=== PATIENT | male | born 1945 | race Caucasian/White ===

== ENCOUNTER 2021-03-25 12:59 | Outpatient (REF) | payer MEDICARE, OTHER, SELFPAY ==
--- NOTE | ~2021-03-25 | US_ITS ---
EXAMINATION: NONINVASIVE ASSESSMENT OF THE ARTERIES OF BOTH LOWER EXTREMITIES WITH PVR EXAM AND BILATERAL LOWER EXTREMITY DUPLEX CLINICAL INFORMATION: peripheral vascular disease TECHNIQUE: Ankle pulse volume recordings, ankle pressure measurements and ankle brachial indices were obtained of the lower extremity arterial system bilaterally in addition to duplex Doppler techniques with wave form analysis and measurement of velocities in the common femoral, profunda femoral, superficial femoral, popliteal and tibial arteries. The study was performed only at rest. COMPARISON: Previous exam February 2020 FINDINGS: a) AT REST: RIGHT LE. The right ankle-brachial index is: 0.94 2. Right ankle pressure: normal. 3. Right ankle PVR waveform: Dampened 4. Right direct duplex Doppler findings: There is atherosclerotic disease with vessel wall calcification. * Common femoral artery: 99 cm/s, Diastolic flow reversal: Yes * Superficial femoral artery (proximal, mid, distal): 73, 65 and 54 cm/s, Diastolic flow reversal: No. Biphasic. * Popliteal artery: 40 cm/s, Diastolic flow reversal: No. Biphasic. * Posterior tibial artery: 48 cm/s, Diastolic flow reversal: No. Monophasic. LEFT LE. The left ankle-brachial index is: Not able to detect due to elevated pressure greater than 200 2. Left ankle pressure: Elevated 3. Left ankle PVR waveform: Dampened 4. Left direct duplex Doppler findings: There is atherosclerotic disease with vessel wall calcification. * Common femoral artery: 95 cm/s, Diastolic flow reversal: No. Biphasic. * Superficial femoral artery (proximal, mid, distal): 83, 82 and 71 cm/s, Diastolic flow reversal: No. Biphasic. * Popliteal artery: 45 cm/s, Diastolic flow reversal: Yes * Posterior tibial artery: 54 cm/s, Diastolic flow reversal: No. Monophasic. RAY Reference: * >0.97-1.25 = normal - no significant arterial disease * 0.75-0.96 = mild peripheral arterial disease * 0.5-0.74 = moderate peripheral arterial disease * <0.50 = severe peripheral arterial disease US/US arterial duplex LE BI IMPRESSION: Right: The right RAY is 0.9 which is normal. Again, this may be artifactually elevated due to vessel wall calcification. There is no evidence of inflow disease. There is abnormal monophasic flow in the posterior tibial artery suggestive of trifurcation disease. Left: Ankle brachial indices could not be detected due to elevated pressure. There is no evidence of inflow disease. There is abnormal monophasic flow in the posterior tibial artery suggestive of trifurcation disease.
== END 2021-03-25 13:00 | disposition home or self-care (01) ==
LOC: HO.US 12:59
PROVIDERS: PCP Internal Medicine; Visit Provider Surgery Vascular Surgery
DX: I73.9 Peripheral vascular disease, unspecified (principal)
CPT/HCPCS: 93923; 93925

== ENCOUNTER → 2021-03-28 09:35 | Outpatient (BNVA) | payer MEDICARE, OTHER, SELFPAY | PROVIDERS: PCP Family Medicine; Visit Provider Surgery Vascular Surgery | DX: I73.9 Peripheral vascular disease, unspecified (principal) | CPT/HCPCS: 99212 ==

== ENCOUNTER → 2021-07-18 15:41 | Outpatient (BNVA) | payer MEDICARE, OTHER, SELFPAY | PROVIDERS: PCP Internal Medicine; Visit Provider Surgery Vascular Surgery | DX: I73.9 Peripheral vascular disease, unspecified (principal) | CPT/HCPCS: 99212 ==

== ENCOUNTER → 2021-08-01 14:15 | Outpatient (BNVA) | payer MEDICARE, OTHER, SELFPAY | PROVIDERS: PCP Internal Medicine; Visit Provider Surgery Vascular Surgery | DX: I73.9 Peripheral vascular disease, unspecified (principal); Z89.421 Acquired absence of other right toe(s) | CPT/HCPCS: 99212 ==

== ENCOUNTER 2022-01-02 09:52 | Outpatient (REF) | payer MEDICARE, OTHER, SELFPAY ==
--- NOTE | ~2022-01-02 | US_ITS ---
EXAMINATION: NONINVASIVE ASSESSMENT OF THE ARTERIES OF BOTH LOWER EXTREMITIES WITH PVR EXAM AND BILATERAL LOWER EXTREMITY DUPLEX CLINICAL INFORMATION: peripheral vascular disease TECHNIQUE: Ankle pulse volume recordings, ankle pressure measurements and ankle brachial indices were obtained of the lower extremity arterial system bilaterally in addition to duplex Doppler techniques with wave form analysis and measurement of velocities in the common femoral, profunda femoral, superficial femoral, popliteal and tibial arteries. The study was performed only at rest. COMPARISON: Comparison is made to the previous study dated 03/25/2021. FINDINGS: a) AT REST: RIGHT LE. The right ankle-brachial index is: 0.98. Previously, 0.94 2. Right ankle pressure: normal. 3. Right ankle PVR waveform: Dampened 4. Right direct duplex Doppler findings: There is atherosclerotic disease with vessel wall calcification. * Common femoral artery: 77 cm/s. Previously, 99 cm/s, Diastolic flow reversal: Yes * Superficial femoral artery (proximal, mid, distal): 67, 55, 56 cm/s. Previously, 73, 65 and 54 cm/s, Diastolic flow reversal: No. Biphasic. * Popliteal artery: 45 cm/s. Previously, 40 cm/s, Diastolic flow reversal: No. Biphasic. * Posterior tibial artery: The mid posterior tibial artery appears to be occluded by duplex ultrasound. Previously, 48 cm/s, Diastolic flow reversal: No. Monophasic. * The right peroneal artery appears to be occluded. LEFT LE. The left ankle-brachial index is: Not able to detect due to elevated pressure greater than 200. This was seen previously. 2. Left ankle pressure: Elevated 3. Left ankle PVR waveform: Dampened 4. Left direct duplex Doppler findings: There is atherosclerotic disease with vessel wall calcification. * Common femoral artery: 104 cm/s and triphasic. Previously,95 cm/s, Diastolic flow reversal: No. Biphasic. * Superficial femoral artery (proximal, mid, distal): 59, 72, 37 cm/s. Previously, 83, 82 and 71 cm/s, Diastolic flow reversal: No. Biphasic. * Popliteal artery: 49 cm/s. Previously, 45 cm/s, Diastolic flow reversal: Yes * Posterior tibial artery: 47 cm/s and monophasic. The midportion appears to be occluded by duplex ultrasound. Previously, 54 cm/s, Diastolic flow reversal: No. Monophasic. RAY Reference: * >0.97-1.25 = normal - no significant arterial disease * 0.75-0.96 = mild peripheral arterial disease * 0.5-0.74 = moderate peripheral arterial disease * <0.50 = severe peripheral arterial disease US/US arterial duplex LE BI IMPRESSION: RIGHT: The right RAY is 0.9 which is normal. Again, this may be artifactually elevated due to vessel wall calcification. There is no evidence of inflow disease. The posterior tibial artery and peroneal artery, respectively, may have occlusive disease. LEFT: Ankle brachial indices could not be detected due to elevated pressure. There is no evidence of inflow disease. There is abnormal monophasic flow in the posterior tibial artery suggestive of trifurcation disease. There appears to be an occlusion in the mid posterior tibial artery.
== END 2022-01-02 09:53 | disposition home or self-care (01) ==
LOC: HO.US 09:52
PROVIDERS: Visit Provider Surgery Vascular Surgery
DX: I73.9 Peripheral vascular disease, unspecified (principal)
CPT/HCPCS: 93923; 93925

== ENCOUNTER → 2022-04-29 09:28 | Outpatient (BNVA) | payer MEDICARE, OTHER, SELFPAY | PROVIDERS: PCP Internal Medicine; Visit Provider Surgery Vascular Surgery | DX: I73.9 Peripheral vascular disease, unspecified (principal) | CPT/HCPCS: 99212 ==

== ENCOUNTER 2023-04-06 12:54 | Outpatient (REF) | payer MEDICARE, OTHER, SELFPAY ==
--- NOTE | ~2023-04-06 | US_ITS ---
EXAMINATION: NONINVASIVE ASSESSMENT OF THE ARTERIES OF BOTH LOWER EXTREMITIES WITH PVR EXAM AND BILATERAL LOWER EXTREMITY DUPLEX Larisa Greene MD CLINICAL INFORMATION: Peripheral vascular disease TECHNIQUE: Ankle pulse volume recordings, ankle pressure measurements and ankle brachial indices were obtained of the lower extremity arterial system bilaterally in addition to duplex Doppler techniques with wave form analysis and measurement of velocities in the common femoral, profunda femoral, superficial femoral, popliteal and tibial arteries. The study was performed only at rest. COMPARISON: Arterial exam on 01/02/2022 FINDINGS: a) AT REST: RIGHT LE. The right ankle-brachial index is: 0.98 * >0.97-1.25 = normal - no significant arterial disease * 0.75-0.96 = mild peripheral arterial disease * 0.5-0.74 = moderate peripheral arterial disease * <0.50 = severe peripheral arterial disease 2. Right ankle pressure: normal. 3. Right ankle PVR waveform: abnormal. 4. Right direct duplex Doppler findings: Common femoral artery: 72 cm/s, Multiphasic Profunda femoris artery: 58 cm/s, Multiphasic Superficial femoral artery (proximal): 65 cm/s, Multiphasic Superficial femoral artery (mid): 59 cm/s, Multiphasic Superficial femoral artery (distal): 59 cm/s, Multiphasic Proximal Popliteal artery: 39 cm/s, Multiphasic Mid posterior tibial artery: 26 cm/s, Monophasic (occluded proximally) Right popliteal fossa cysts measuring 1.5cm and 1.7cm. LEFT LE. The left ankle-brachial index is: 1.68 * >0.97-1.25 = normal - no significant arterial disease * 0.75-0.96 = mild peripheral arterial disease * 0.5-0.74 = moderate peripheral arterial disease * <0.50 = severe peripheral arterial disease 2. Left ankle pressure: abnormal. 3. Left ankle PVR waveform: abnormal. 4. Left direct duplex Doppler findings: Common femoral artery: 84 cm/s, Multiphasic Profunda femoris artery: 102 cm/s, Multiphasic Superficial femoral artery (proximal): 64 cm/s, Multiphasic Superficial femoral artery (mid): 58 cm/s, Multiphasic Superficial femoral artery (distal): 43 cm/s, Multiphasic Proximal Popliteal artery: 46 cm/s, Monophasic Mid posterior tibial artery: 74 cm/s, Monophasic (occluded proximally) US/US RAY complete IMPRESSION: RIGHT LEG: No hemodynamically significant stenoses in the proximal right lower extremity. 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 LEFT LEG: Moderate peripheral arterial disease in the left lower extremity. 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
--- NOTE | ~2023-04-06 | US_ITS ---
EXAMINATION: NONINVASIVE ASSESSMENT OF THE ARTERIES OF BOTH LOWER EXTREMITIES WITH PVR EXAM AND BILATERAL LOWER EXTREMITY DUPLEX Larisa Greene MD CLINICAL INFORMATION: Peripheral vascular disease TECHNIQUE: Ankle pulse volume recordings, ankle pressure measurements and ankle brachial indices were obtained of the lower extremity arterial system bilaterally in addition to duplex Doppler techniques with wave form analysis and measurement of velocities in the common femoral, profunda femoral, superficial femoral, popliteal and tibial arteries. The study was performed only at rest. COMPARISON: Arterial exam on 01/02/2022 FINDINGS: a) AT REST: RIGHT LE. The right ankle-brachial index is: 0.98 * >0.97-1.25 = normal - no significant arterial disease * 0.75-0.96 = mild peripheral arterial disease * 0.5-0.74 = moderate peripheral arterial disease * <0.50 = severe peripheral arterial disease 2. Right ankle pressure: normal. 3. Right ankle PVR waveform: abnormal. 4. Right direct duplex Doppler findings: Common femoral artery: 72 cm/s, Multiphasic Profunda femoris artery: 58 cm/s, Multiphasic Superficial femoral artery (proximal): 65 cm/s, Multiphasic Superficial femoral artery (mid): 59 cm/s, Multiphasic Superficial femoral artery (distal): 59 cm/s, Multiphasic Proximal Popliteal artery: 39 cm/s, Multiphasic Mid posterior tibial artery: 26 cm/s, Monophasic (occluded proximally) Right popliteal fossa cysts measuring 1.5cm and 1.7cm. LEFT LE. The left ankle-brachial index is: 1.68 * >0.97-1.25 = normal - no significant arterial disease * 0.75-0.96 = mild peripheral arterial disease * 0.5-0.74 = moderate peripheral arterial disease * <0.50 = severe peripheral arterial disease 2. Left ankle pressure: abnormal. 3. Left ankle PVR waveform: abnormal. 4. Left direct duplex Doppler findings: Common femoral artery: 84 cm/s, Multiphasic Profunda femoris artery: 102 cm/s, Multiphasic Superficial femoral artery (proximal): 64 cm/s, Multiphasic Superficial femoral artery (mid): 58 cm/s, Multiphasic Superficial femoral artery (distal): 43 cm/s, Multiphasic Proximal Popliteal artery: 46 cm/s, Monophasic Mid posterior tibial artery: 74 cm/s, Monophasic (occluded proximally) US/US arterial duplex LE BI IMPRESSION: RIGHT LEG: No hemodynamically significant stenoses in the proximal right lower extremity. 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 LEFT LEG: Moderate peripheral arterial disease in the left lower extremity. 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
== END 2023-04-06 12:55 | disposition home or self-care (01) ==
LOC: HO.US 12:54
PROVIDERS: PCP Internal Medicine; Visit Provider Surgery Vascular Surgery
DX: I70.213 Atherosclerosis of native arteries of extremities with intermittent claudication, bilateral legs (principal)
CPT/HCPCS: 93923; 93925

== ENCOUNTER 2023-04-28 09:51 | Outpatient (AMB) | payer MEDICARE, OTHER, SELFPAY ==
[2023-04-28 09:54] VITALS: BMI 31.0
--- NOTE | 2023-04-28 09:54 | MHC.OFFVIS ---
Intake Vital Signs 04/28/23 09:54 Height 5 ft 9 in Weight 210 lb BMI 31.0 Intake Visit Reasons: Follow up 04/07 US Intake Note: Pt presents today for a f/u annual bilateral LE arterial US done 04/06/23. Pt reports his reocurring blister went away and his leg no longer feels heavy or like it is dragging. Adjuster Required: No Accompanied by: Spouse Allergies No Known Allergies [No Known Allergies*] Allergy (Verified 04/28/23 09:58) HPI Follow up 04/07 HPI Details Very pleasant 77-year-old gentleman presents for follow-up regarding peripheral vascular disease. 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 It has gone on to heal. He is doing extremely well. He is using an AFO secondary to a stroke and has no other issues. He is ambulating fairly well. He now presents for routine follow-up with noninvasive arterial testing. [facility] Medical History Diabetes Hypercholesteremia PVD (peripheral vascular disease) Surgical History History of open heart surgery Hx of brain surgery S/P angiogram of extremity Toe amputee Social History Patient Tobacco Use Status: Never used Tobacco Review of Systems Const All systems reviewed & are unremarkable except as noted in HPI and below Reports no additional complaints ENT Reports Normal hearing present Card Denies chest pain, Denies chest pain at rest, Denies chest pain with activity and Denies pedal edema Resp Denies cough GI Denies abdominal pain Musc Denies abnormal gait, Denies muscle cramps and Denies radiating pain into limb Skin/Breast Denies skin ulcer and Denies wounds Neuro Reports Normal hearing present and Denies abnormal gait Psych Reports no additional complaints Physical Exam Vital Signs: BMI result Body Mass Index 31.0 Const General: cooperative, healthy appearing and comfortable Orientation/consciousness: oriented to person, oriented to place and oriented to time HEENT Head: Yes normal to inspection Neck Neck: Yes normal visual inspection Carotids: no bruits Chest Chest palpation & inspection: normal inspection of the chest Resp Effort & Inspection: normal respiratory effort and able to speak in complete sentences Auscultation: clear to auscultation bilaterally, no crackles, no rales, no rhonchi and no wheezes Cardio Other: Bilateral palpable dorsalis pedis pulses Rate: regular rate Rhythm: regular rhythm Heart sounds: S1 normal heart sound present and S2 normal heart sound present Bruits: no carotid bruits Peripheral pulses: Peripheral pulses 2+ throughout GI Inspection: Yes normal to inspection Skin Wounds: no wounds Hair: normal Neuro General: oriented to person, oriented to place and oriented to time Cranial nerves: Yes CN's II-XII intact bilaterally and Yes Normal hearing present Cognition (Neuro): normal cognition Motor exam (neuro): 5/5 motor strength present throughout Extrem Other: venous exam: No significant superficial varicosities or spider telangiectasias, minimal edema General: No clubbing, No cyanosis and No edema Psych Appearance: grossly normal Mental Status: mental status grossly normal Speech and movement: Normal speech and movement present Results Reviewed Results Reviewed: Noninvasive arterial testing dated 04/06/2023 demonstrates RAY on the right of 0.98 and on the left of 0.68 which is artifactually elevated. Written report and images were reviewed. Assessment & Plan Assessment & Plan (1) PVD (peripheral vascular disease): Comment: 08/05/2017 -plasty of right anterior tibial 09/01/2017- amputation of right 3rd toe 01/01/2018 - plasty of right anterior tibial peroneal and popliteal arteries Code(s): I73.9 - Peripheral vascular disease, unspecified Plan: In short patient has stable claudication. Arterial testing is within normal limits and he has palpable DP pulses in addition. I did review the pathophysiology of peripheral vascular disease with the patient. In addition we did discuss routine conservative measures including a healthy diet and the importance of exercise and ambulation. We did discuss risk factor modification. The patient will continue to to follow-up with surveillance follow-up in approximately 1 year. Thank you for allowing us to participate in this patient's care. If there are any questions or concerns please do not hesitate to contact us. Orders: Orders US arterial duplex LE BI 364 Days I73.9 - Peripheral vascular disease, unspecified Coding Level of Care Code Est Pt Level 4 (08535) Diagnoses PVD (peripheral vascular disease) I73.9
== END 2023-04-28 10:11 | disposition home or self-care (01) ==
PROVIDERS: PCP Internal Medicine; Visit Provider Surgery Vascular Surgery
DX: I73.9 Peripheral vascular disease, unspecified (principal); Z89.421 Acquired absence of other right toe(s)
CPT/HCPCS: 99213

== ENCOUNTER → 2023-04-28 09:51 | Outpatient (BNVA) | payer MEDICARE, OTHER, SELFPAY | PROVIDERS: PCP Internal Medicine; Visit Provider Surgery Vascular Surgery | DX: I73.9 Peripheral vascular disease, unspecified (principal); Z89.421 Acquired absence of other right toe(s) | CPT/HCPCS: 99212 ==

== ENCOUNTER 2024-05-10 12:48 | Outpatient (REF) | payer MEDICARE, OTHER, SELFPAY ==
--- NOTE | ~2024-05-10 | US_ITS ---
EXAMINATION: Noninvasive assessment of the bilateral lower extremities with ARTERIAL DUPLEX and ANKLE BRACHIAL INDICES (ABIs). CLINICAL INFORMATION: Peripheral vascular disease TECHNIQUE: Duplex Doppler techniques with waveform analysis and measurement of velocities in the bilateral common femoral, profunda femoris, superficial femoral, popliteal and tibial arteries were performed. Additionally, ankle pulse volume recordings, ankle pressure measurements and ankle brachial indices were obtained of the lower extremity arterial system bilaterally. The study was performed only at rest. COMPARISON: 04/06/2023 and 01/02/2022 FINDINGS: DIRECT DUPLEX DOPPLER FINDINGS: RIGHT LEG: Common femoral artery: 55.9 cm/s, phasicity: Triphasic Profunda femoris artery: 42.5 cm/s, phasicity: Biphasic Superficial femoral artery (proximal): 55.0 cm/s, phasicity: Biphasic Superficial femoral artery (mid): 49.4 cm/s, phasicity: Biphasic Superficial femoral artery (distal): 37.2 cm/s, phasicity: Biphasic Popliteal artery: 42.5 cm/s, phasicity: Biphasic Posterior tibial artery: Occluded in the proximal and mid segments with reconstituted flow in the distal segment Peroneal artery: 40.9 cm/s, phasicity: Biphasic Anterior tibial artery: 28.1 cm/s, phasicity: Monophasic Dorsalis pedis artery: 26.4 cm/s, phasicity:Monophasic Yee's cyst in the popliteal fossa measuring 1.1 x 0.4 x 0.9 cm LEFT LEG: Common femoral artery: 90.0 cm/s, phasicity: Biphasic Profunda femoris artery: 98.1 cm/s, phasicity: Biphasic Superficial femoral artery (proximal): 59.0 cm/s, phasicity: Biphasic Superficial femoral artery (mid): 63.2 cm/s, phasicity: Biphasic Superficial femoral artery (distal): 39.1 cm/s, phasicity: Biphasic Popliteal artery: 41.3 cm/s, phasicity: Biphasic Posterior tibial artery: Occluded in the proximal and mid segments with reconstituted reversed flow in the distal segment Peroneal artery: Occluded Anterior tibial artery: 27.6 cm/s, phasicity: Biphasic Dorsalis pedis artery: 11.2 cm/s, phasicity: Monophasic ANKLE-BRACHIAL INDEX: Right: 0.88, previously 0.98 Left: 1.18, previously 1.68 ANKLE PRESSURES: Right: PT 96, DP 125 Left: PT 167, DP Inaudible ANKLE PVR WAVEFORMS: Right: Abnormal Left: Abnormal US/US arterial duplex LE BI IMPRESSION: RIGHT LEG: Occlusion of the proximal and mid posterior tibial artery with reconstituted flow in the distal segment. Monophasic flow in the anterior tibial and dorsalis pedis arteries. Small Yee's cyst. Stable examination. LEFT LEG: Occlusion of the proximal and mid posterior tibial artery with reconstituted flow in the distal segment. Occlusion of the peroneal artery. Monophasic flow in the anterior tibial and dorsalis pedis arteries. Stable examination Electronically signed by: Abelardo Ruff MD 05/13/2024 03:34 PM EDT RP
== END 2024-05-10 12:49 | disposition home or self-care (01) ==
LOC: HO.US 12:48
PROVIDERS: PCP Internal Medicine; Visit Provider Surgery Vascular Surgery
DX: I73.9 Peripheral vascular disease, unspecified (principal)
CPT/HCPCS: 93923; 93925

== ENCOUNTER 2024-05-26 09:07 | Outpatient (AMB) | payer MEDICARE, OTHER, SELFPAY ==
[2024-05-26 09:11] VITALS: BMI 30.1
--- NOTE | 2024-05-26 09:11 | A.OFFVIS_ITS ---
Vital Signs 05/26/24 09:11 Height 5 ft 9 in Weight 204 lb BMI 30.1 Intake Visit Reasons: follow up s/p bilat LE Arterial US 05/10/24 Intake Note: 1 yr arterial US follow up 05/10/24 w/ hx of Right LE angios 08/05/17 & 01/01/2018 and right 3rd toe amp 09/01/17. Pt states he is doing well. Does have a brace for his right LE from neuro for drop foot, not wearing today, did have a fall and is wearing a knee brace. Accompanied by: Self / Same As Patient Allergies No Known Allergies [No Known Allergies*] Allergy (Verified 05/26/24 09:16) HPI HPI follow up s/p bilat LE Arterial US 05/10/24: Details: Very pleasant 78-year-old gentleman presents for routine surveillance follow-up regarding his peripheral vascular disease. His right 3rd toe amputation remains healed. He remains fairly active. He continues to go camping. He now presents for follow-up with noninvasive testing. [facility] Medical History PVD (peripheral vascular disease) Diabetes Hypercholesteremia Surgical History History of open heart surgery Hx of brain surgery S/P angiogram of extremity Toe amputee Social History Patient Tobacco Use Status: Never used Tobacco Review of Systems Const All systems reviewed & are unremarkable except as noted in HPI and below Reports no additional complaints ENT Reports Normal hearing present Card Denies chest pain, Denies chest pain at rest, Denies chest pain with activity and Denies pedal edema Resp Denies cough GI Denies abdominal pain Musc Denies abnormal gait, Denies muscle cramps and Denies radiating pain into limb Skin/Breast Denies skin ulcer and Denies wounds Neuro Reports Normal hearing present and Denies abnormal gait Psych Reports no additional complaints Physical Exam Vital Signs: BMI result Body Mass Index 30.1 Const General: cooperative, healthy appearing and comfortable Orientation/consciousness: oriented to person, oriented to place and oriented to time HEENT Head: Yes normal to inspection Neck Neck: Yes normal visual inspection Carotids: no bruits Chest Chest palpation & inspection: normal inspection of the chest Resp Effort & Inspection: normal respiratory effort and able to speak in complete sentences Auscultation: clear to auscultation bilaterally, no crackles, no rales, no rhonchi and no wheezes Cardio Rate: regular rate Rhythm: regular rhythm Heart sounds: S1 normal heart sound present and S2 normal heart sound present Bruits: no carotid bruits Peripheral pulses: Peripheral pulses 2+ throughout GI Inspection: Yes normal to inspection Skin Wounds: no wounds Hair: normal Neuro General: oriented to person, oriented to place and oriented to time Cranial nerves: Yes CN's II-XII intact bilaterally and Yes Normal hearing present Cognition (Neuro): normal cognition Motor exam (neuro): 5/5 motor strength present throughout Extrem Other: venous exam: No significant superficial varicosities or spider telangiectasias, minimal edema General: No clubbing, No cyanosis and No edema Psych Appearance: grossly normal Mental Status: mental status grossly normal Speech and movement: Normal speech and movement present Results Reviewed Results Reviewed: Noninvasive arterial testing dated 05/10/2024 demonstrates RAY on the right of 0.88 and on the left of 1.18. With biphasic waveforms all the way down. Assessment & Plan Assessment & Plan (1) PVD (peripheral vascular disease): Comment: 08/05/2017 -plasty of right anterior tibial 09/01/2017- amputation of right 3rd toe 01/01/2018 - plasty of right anterior tibial peroneal and popliteal arteries Code(s): I73.9 - Peripheral vascular disease, unspecified Category: Medical Plan: In short patient has stable claudication. I did review the pathophysiology of peripheral vascular disease with the patient. In addition we did discuss routine conservative measures including a healthy diet and the importance of exercise and ambulation. We did discuss risk factor modification. The patient will continue to to follow-up with surveillance follow-up in approximately 1 year. Thank you for allowing us to participate in this patient's care. If there are any questions or concerns please do not hesitate to contact us. Please note a longitudinal relationship has been created with the patient and we have been following and surveillance this chronic condition. Orders: Orders US arterial duplex LE BI 1 Year I73.9 - Peripheral vascular disease, unspecified Coding Level of Care Code Est Pt Level 4 (27046) Diagnoses PVD (peripheral vascular disease) I73.9
== END 2024-05-26 09:49 | disposition home or self-care (01) ==
PROVIDERS: PCP Internal Medicine; Visit Provider Surgery Vascular Surgery
DX: I73.9 Peripheral vascular disease, unspecified (principal)
CPT/HCPCS: 99214

== ENCOUNTER → 2024-05-26 09:07 | Outpatient (BNVA) | payer MEDICARE, OTHER, SELFPAY | PROVIDERS: PCP Internal Medicine; Visit Provider Surgery Vascular Surgery | DX: I73.9 Peripheral vascular disease, unspecified (principal) | CPT/HCPCS: 99212 ==

== ENCOUNTER 2025-05-08 14:18 | Outpatient (REF) | payer MEDICARE, OTHER, SELFPAY ==
--- NOTE | ~2025-05-08 | US_ITS ---
EXAMINATION: Noninvasive assessment of the bilateral lower extremities with ARTERIAL DUPLEX, ANKLE BRACHIAL INDICES (ABIs), and PULSE VOLUME RECORDINGS (PVRs). CLINICAL INFORMATION: Peripheral vascular disease, unspecified. !73.9. TECHNIQUE: Duplex Doppler techniques with waveform analysis and measurement of velocities in the bilateral common femoral, profunda femoris, superficial femoral, popliteal and tibial arteries were performed. Additionally, ankle pulse volume recordings, ankle pressure measurements and ankle brachial indices were obtained of the lower extremity arterial system bilaterally. The study was performed only at rest. COMPARISON: May 10, 2024. FINDINGS: Calcified plaques throughout the interrogated arteries. DIRECT DUPLEX DOPPLER FINDINGS: RIGHT LEG: Common femoral artery: 91 cm/s, phasicity: Triphasic. Profunda femoris artery: 49 cm/s, phasicity: Biphasic. Superficial femoral artery (proximal): 59 cm/s, phasicity: Triphasic. Superficial femoral artery (mid): 54 cm/s, phasicity: Triphasic. Superficial femoral artery (distal): 45 cm/s, phasicity: Biphasic. Collateral flow in the distal aspect of the femoral artery with peak systolic velocity 141 cm/s and monophasic waveforms. Popliteal artery: 40 cm/s, phasicity: Monophasic. Spectral broadening. Posterior tibial artery: 27 cm/s, phasicity: Monophasic. Spectral broadening. Peroneal artery: 53 cm/s, phasicity: Monophasic. Spectral broadening. Anterior tibial artery: 48 cm/s, phasicity: Monophasic. Spectral broadening. Dorsalis pedis artery: 40 cm/s, phasicity:Monophasic. Spectral broadening. The previously identified 1 cm popliteal cyst is not documented on the current exam. LEFT LEG: Common femoral artery: 114 cm/s, phasicity: Triphasic. Spectral broadening. Profunda femoris artery: 97 cm/s, phasicity: Triphasic. Spectral broadening. Superficial femoral artery (proximal): 78 cm/s, phasicity: Triphasic. Spectral broadening. Superficial femoral artery (mid): 60 cm/s, phasicity: Triphasic. Spectral broadening. Superficial femoral artery (distal): 31 cm/s, phasicity: Triphasic. Popliteal artery: 45 cm/s, phasicity: Triphasic. Spectral broadening. Posterior tibial artery: 40 cm/s, phasicity: Monophasic. Reversal. Spectral broadening. Peroneal artery: No color Doppler flow. Anterior tibial artery: 18 cm/s, phasicity: Monophasic. Spectral broadening. Dorsalis pedis artery: 18 cm/s, phasicity: Monophasic. Spectral broadening. BRACHIAL PRESSURES: Right: 120 Left: 121 ANKLE PRESSURES: Right: PT 89, DP 131 Left: PT 93, DP 174 ANKLE-BRACHIAL INDEX: Right: 1.08 Left: 1.44 ANKLE PVR WAVEFORMS: Right: Abnormal Left: Abnormal US/US arterial duplex BI w/ RAY IMPRESSION: Right leg: Moderate to severe inflow disease from the posterior tibialis to the dorsalis pedis arteries. Collateral flow distal superficial femoral artery with likely high degree stenosis. Left leg: Severe inflow disease, posterior tibialis to the dorsalis pedis arteries. Probable occluded peroneal artery. RAY Reference: - >1.4 = calcified vessels - 0.9 - 1.4 = normal - no significant arterial disease - 0.7 - 0.89 = mild peripheral arterial disease - 0.51 - 0.69 = moderate peripheral arterial disease - 0.50 = severe peripheral arterial disease - < .30 = critical arterial disease Electronically signed by: Judd Smith MD 05/09/2025 08:08 AM EDT
--- OUTSIDE RECORDS SUMMARY | 2025-05-08 16:44 | XMS_ITS | Encounter Summary ---
Author Organization [facility] Address [address] [place] [address] Phone Care Team Providers Care Forestry Aide Name Role Phone EdilSusanna Mary DO Unavailable [phone] Freddie Granados MD Primary Care Provider + [phone] Abraham Stafford MD Primary Care Provider [phone] Abraham Stafford MD Unavailable [phone] Encounter Details Date Type Department Care Team (Late st Contact Info) Description 02/12/2021 Ancillary [facility] [address] 3rd Floor, [address] [place] [address] Danisha You MD [address] [place] [phone] [email or web address] Social History Tobacco Use Types Packs/Day Years Used Date Smoking Tobacco: Former Smokeless Tobacco: Never Quit: 07/02/1987 Alcohol Use Standard Drinks/Week Comments Yes 4 (1 standard drink = 0.6 oz pur e alcohol) Sex and Gender Information Value Date Recorded Sex Assigned at Male 09/07/2017 9:38 AM EST Legal Sex Male 10:06 PM EDT Gender Identity Male 09/07/2017 9:38 AM EST Sexual Orientation Straight 09/07/2017 9: 38 AM EST documented as of this encounter Plan of Treatment Upcoming Encounters Date Type Department Care Team (Late st Contact Info) Description 11/22/2024 Procedure Pass Echo Lab [address] [place] [address] 04/25/2025 Procedure Pass Non-Invasive Cardiology [address] [place] [address] 05/22/2025 10:30 AM EDT Appointment Echo Lab [address] [place] [address] Claribel Kendall, [address] [address] 05/31/2025 9:20 AM EDT Office Visit [facility] [address] [place] [address] 3rd Floor, [address] [place] [address] Danish Grace MD [address] [place] [address], [address] [address] 05/31/2025 9:30 AM EDT Appointment Non-Invasive Cardiology [address] [place] [address] Danish Grace MD [address] [place] [address], [address] [place] [address] 06/08/2025 10:00 AM EDT Office Visit [facility] [address] [place] [address] Abraham Stafford MD [address] [place] [address], [address] [place] [address] documented as of this encounter Visit Diagnoses Not on filedocumented in this encounter Additional Health Concerns Assessment Noted Time PHQ-2 Depression Total Score: 0 10/23/19 21 11:07 AM EST documented as of this encounter Care Teams Forestry Aide Relationship Specialty Start Date End Date Freddie Granados MD [address] [place] [address], [address] [place] [address] PCP - General Internal Medicine 01/04/21 05/20/21 Abraham Stafford MD [address] [place] [address], [address] [place] [address] [email or web address] PCP - General Internal Medicine 05/21/21 Susanna Solo DO [address] [place] [address] [email or web address] Insurance Assigned Provider 05/28/19 12/07/21 Abraham Stafford MD [address] [place] [address], [address] [place] [address] [email or web address] Insurance Assigned Provider 12/05/23 documented as of this encounter Additional Source Comments The information contained in this document represents components of the legal health record. It is not the complete legal health record.[facility]
--- OUTSIDE RECORDS SUMMARY | 2025-05-08 16:44 | XMS_ITS | Encounter Summary ---
Author Organization [facility] Address [address] [place] [address] [place] [address] Phone Care Team Providers Care Counter Dish Carrier Name Role Phone Susanna Solo DO Primary Care Provider [phone] Susanna Solo DO Unavailable [phone] Abraham Stafford MD Primary Care Provider [phone] Freddie Granados MD Primary Care Provider + [phone] Abraham Stafford MD Primary Care Provider [phone] Abraham Stafford MD Unavailable [phone] Encounter Details Date Type Department Care Team (Late st Contact Info) Description 11/13/2020 Procedure Pass Non-Invasive Cardiology [address] [place] [address] Social History Tobacco Use Types Packs/Day Years Used Date Smoking Tobacco: Former Cigarettes 2 20 1 - 1984 Smokeless Tobacco: Never Alcohol Use Standard Drinks/Week Comments Yes 0 (1 standard drink = 0.6 oz pur e alcohol) 1 drink per night Sex and Gender Information Value Date Recorded Sex Assigned at Male 09/07/2017 9:38 AM EST Legal Sex Male 10:06 PM EDT Gender Identity Male 09/07/2017 9:38 AM EST Sexual Orientation Straight 09/07/2017 9: 38 AM EST documented as of this encounter Plan of Treatment Upcoming Encounters Date Type Department Care Team (Late st Contact Info) Description 11/22/2024 Procedure Pass Echo Lab [address] [place] [address] 04/25/2025 Procedure Pass Non-Invasive Cardiology [address] [place] [address] 05/22/2025 10:30 AM EDT Appointment Echo Lab [address] [place] [address] Claribel Kendall, DNP [address] [place] [address] 05/31/2025 9:20 AM EDT Office Visit [facility] [address] [place] [address] 3rd Floor, [address] [place] [address] Danish Grace MD [address] [place] [address], [address] [address] 05/31/2025 9:30 AM EDT Appointment Non-Invasive Cardiology [address] [place] [address] [place] [address] Danish Grace MD [address] [place] [address], [address] [place] [address] 06/08/2025 10:00 AM EDT Office Visit [address] [place] [address] Abraham Stafford MD [address] [place] [address], [address] [place] [address] documented as of this encounter Visit Diagnoses Not on filedocumented in this encounter Additional Health Concerns Assessment Noted Time PHQ-2 Depression Total Score: 0 06/20/20 21 3:03 PM EDT documented as of this encounter Care Teams Counter Dish Carrier Relationship Specialty Start Date End Date Susanna Solo DO [address] [place] [address] [email or web address] PCP - General Family Medicine 09/03/18 01/02/21 Abraham Stafford MD [address] [place] [address], [address] [place] [address] PCP - General Internal Medicine 01/03/21 01/03/21 Freddie Granados MD [address] [place] [address], [address] [place] [address] PCP - General Internal Medicine 01/04/21 05/20/21 Abraham Stafford MD [address] [place] [address], [address] [place] [address] PCP - General Internal Medicine 05/21/21 Susanna Solo DO [address] [place] [email or web address] Insurance Assigned Provider 05/28/19 12/07/21 Abraham Stafford MD [address] [place] [address], [address] [place] [id number] Insurance Assigned Provider 12/05/23 documented as of this encounter Additional Source Comments The information contained in this document represents components of the legal health record. It is not the complete legal health record.[facility]
--- OUTSIDE RECORDS SUMMARY | 2025-05-08 16:44 | XMS_ITS | Encounter Summary ---
Author Organization [facility] Address [address] [place] [address] Phone Care Team Providers Care Rotor Winder Name Role Phone Bony Wang MD Primary Care Provide r Bony Wang MD Unavailable [phone] Susanna Solo DO Primary Care Provider + [phone] Susanna Solo DO Unavailable [phone] Chasidy Diop RN Unavailable [email or web address] Abraham Stafford MD Primary Care Provider [phone] Freddie Granados MD Primary Care Provider [phone] Abraham Stafford MD Primary Care Provider + [phone] Abraham Stafford MD Unavailable [phone] Encounter Details Date Type Department Care Team (Latest Contact Info) Description 11/03/2017 Transcribe Orders [facility] Specimen Processing [address] [place] [address] Kellee Hadley MD [address] [place], [place] [id number] Osteomyelitis, unspecified site, unspecified type (Primary Dx) Social History Tobacco Use Types Packs/Day Years Used Date Smoking Tobacco: Former Smokeless Tobacco: Never Quit: 07/02/1987 Sex and Gender Information Value Date Recorded Sex Assigned at Male 09/07/2017 9:38 AM EST Legal Sex Male 10:06 PM EDT Gender Identity Male 09/07/2017 9:38 AM EST Sexual Orientation Straight 09/07/2017 9: 38 AM EST documented as of this encounter Plan of Treatment Upcoming Encounters Date Type Department Care Team (Late st Contact Info) Description 11/22/2024 Procedure Pass Echo Lab [address] [place] [address] 04/25/2025 Procedure Pass Non-Invasive Cardiology [address] [place] [address] [place] [address] 05/22/2025 10:30 AM EDT Appointment Echo Lab [address] [place] [address] Claribel Kendall, [address] [address] 05/31/2025 9:20 AM EDT Office Visit [facility] [address] [place] [address] 3rd Floor, [address] [place] [address] Danish Grace MD [address] [place] [address], [address] [address] 05/31/2025 9:30 AM EDT Appointment Non-Invasive Cardiology [address] [place] [address] [place] [address] Danish Grace MD [address] [place] [address], [address] [place] [address] 06/08/2025 10:00 AM EDT Office Visit [facility] [address] [place] [address] Abraham Stafford MD [address] [place] [address], [address] [place] [address] documented as of this encounter Results * Vancomycin, trough (11/03/2017 10:06 AM EST) VANCOMYCIN,TROU GH 11.7 10.0 - 20.0 ug/mL [facility] Comment: Interpretation: Therapeutic Range: 10.0 - 20.0 ug/ml. Toxic: Greater than 30.0 ug/ml. Blood 11/03/2017 10:0 6 AM EST 11/03/2017 10:09 AM EST Kellee Hadley MD LAB BLOOD ORDERABLES Final Result Performing Organization Address City/[facility]/ZIP Co de Phone Number [address] [address] * Sedimentation rate (ESR) (11/03/2017 10:06 AM EST) ESR 11 0 - 20 mm/h [facility] Blood 11/03/2017 10:0 6 AM EST 11/03/2017 10:09 AM EST Kellee Hadley MD LAB BLOOD ORDERABLES Final Result Performing Organization Address [facility] de Phone Number [address] [address] * Creatinine/eGFR (11/03/2017 10:06 AM EST) Pathologist [facility] CREATININE 1.20 0.5 - 1.5 mg/dL [facility] EGFR 61 >59 mL/min/1.7 3m2 [facility] Comment:If patient is black, multiply result by 1.159. The eGFR calculation has changed from the MDRD equation to the CKD-EPI equation as of November 03, 2017. Blood 11/03/2017 10:0 6 AM EST 11/03/2017 10:09 AM EST Kellee Hadley MD LAB BLOOD ORDERABLES Final Result Performing Organization Address [facility] de Phone Number [address] [address] * (ABNORMAL) BUN (11/03/2017 10:06 AM EST) BUN 22(H) 6 - 19 mg/dL [facility] Blood 11/03/2017 10:0 6 AM EST 11/03/2017 10:09 AM EST us Kellee Hadley MD LAB BLOOD ORDERABLES Final Result [facility] [address] [place] [address] * (ABNORMAL) CBC and differential (11/03/2017 10:06 AM EST) WBC 7.41 3.40 - 11.20 K/uL [facility] RBC 4.58 4.50 - 5.50 M/uL [facility] HGB 14.5 13.0 - 17.0 g/dL [facility] HCT 42.5 40.0 - 51.0 % [facility] PLT 260 130 - 400 K/uL [facility] MCV 92.8 79.0 - 98.0 [facility] MCH 31.7 27.0 - 34.8 pg [facility] MCHC 34.1 31.5 - 36.0 g/dL [facility] RDW 13.6 10.8 - 14.6 % [facility] MPV 10.0 9.4 - 12.4 [facility] NRBC 0.00 /100 WBCs [facility] ABSOLUTE NRBC 0.00 K/uL [facility] DIFF METHOD Auto [facility] NEUTS 56.9 45.30 - 77.70 % [facility] LYMPHS 24.6 12.30 - 39.70 % [facility] MONOS 13.8(H) 4.10 - 12.80 % [facility] EOS 3.2 0 - 7.2 % [facility] BASOS 1.1 0 - 2.80 % [facility] Granulocytes, immature (%) 0.4 0.0 - 0.9 % [facility] ABSOLUTE NEUTS 4.22 1.40 - 7.70 K/uL [facility] ABSOLUTE LYMPHS 1.82 0.60 - 3.20 K/uL [facility] ABSOLUTE MONOS 1.02(H) 0.11 - 0.59 K/uL [facility] ABSOLUTE EOS 0.24 0.01 - 0.50 K/uL [facility] ABSOLUTE BASOS 0.08 0.00 - 0.08 K/uL [facility] Granulocytes, immature 0.03 0.00 - 0.05 K/uL [facility] Blood 11/03/2017 10:0 6 AM EST 11/03/2017 10:09 AM EST Kellee Hadley MD LAB BLOOD ORDERABLES Final Result Performing Organization Address [facility] Co de Phone Number [address] [address] * (ABNORMAL) LFTs (hepatic panel) (11/03/2017 10:06 AM EST) ALKALINE PHOSPHATASE 135(H) 39 - 117 U/L [facility] TOTAL BILIRUBIN 0.5 0.0 - 1.2 mg/dL [facility] DIRECT BILIRUBIN <0.2 0 - 0.3 mg/dL [facility] Bilirubin (Indirect) NOT CALCULATED 0 - 1.5 mg/dL [facility] AST 19 0 - 37 U/L [facility] ALT 18 0 - 40 U/L [facility] TOTAL PROTEIN 7.3 6.5 - 8.0 g/dL [facility] ALBUMIN 3.7(L) 3.9 - 4.8 g/dL [facility] GLOBULIN 3.6 1 - 4.8 g/dL [facility] A/G Ratio 1.03 1.00 - 4.80 RATIO [facility] Blood 11/03/2017 10:0 6 AM EST 11/03/2017 10:09 AM EST Kellee Hadley MD LAB BLOOD ORDERABLES Final Result Performing Organization Address [facility]/ZIP Co de Phone Number [address] [address] documented in this encounter Visit Diagnoses Diagnosis Osteomyelitis, unspecified site, unspecified type- Primary documented in this encounter Care Teams Rotor Winder Relationship Specialty Start Date End Date Bony Wang MD [email or web address] PCP - General 06/18/17 09/02/18 Susanna Solo DO [address] [place] [address] [email or web address] PCP - General Family Medicine 09/03/18 01/02/21 Abraham Stafford MD [address] [place] [address], [address] [place] [address] [email or web address] PCP - General Internal Medicine 01/03/21 01/03/21 Freddie Granados MD [address] [place] [address], [address] [place] [address] [email or web address] PCP - General Internal Medicine 01/04/21 05/20/21 Abraham Stafford MD [address] [place] [address], [address] [place] [address] [email or web address] PCP - General Internal Medicine 05/21/21 Bony Wang MD [address] [facility] Floor 1 [place] [address] [email or web address] Insurance Assigned Provider 11/28/17 05/28/19 Susanna Solo DO [address] [place] [address] [email or web address] Insurance Assigned Provider 05/28/19 12/07/21 Chasidy Diop RN [address] [place] [address] [email or web address] iCMP Senior Materials Planner 10/28/19 11/01/19 Abraham Stafford MD [address] [place] [address], [address] [place] [address] [email or web address] Insurance Assigned Provider 12/05/23 documented as of this encounter Additional Source Comments The information contained in this document represents components of the legal health record. It is not the complete legal health record.[facility]
--- OUTSIDE RECORDS SUMMARY | 2025-05-08 16:44 | XMS_ITS | Encounter Summary ---
Author Organization [facility] Address [address] [facility] [address] [place] [address] Phone Care Team Providers Care Tire Beader Maker Name Role Phone Bony Wang MD Primary Care Provide r Bony Wang MD Unavailable [phone] Susanna Solo DO Primary Care Provider + [phone] Susanna Solo DO Unavailable [phone] Chasidy Diop RN Unavailable [email or web address] Abraham Stafford MD Primary Care Provider [phone] Freddie Granados MD Primary Care Provider [phone] Abraham Stafford MD Primary Care Provider [phone] Abraham Stafford MD Unavailable [phone] Encounter Details Date Type Department Care Team (Latest Contact Info) Description 10/21/2017 Transcribe Orders [facility] Specimen Processing [address] [place] [address] Kellee Hadley MD [address] [place], [place] [id number] Osteomyelitis, unspecified site, unspecified type (Primary Dx) [...] Info) Description 11/22/2024 Procedure Pass Echo Lab [address] [place] [address] 04/25/2025 Procedure Pass Non-Invasive Cardiology [address] [place] [address] [place] [address] 05/22/2025 10:30 AM EDT Appointment Echo Lab [address] [place] [address] Claribel Kendall, [address] [address] 05/31/2025 9:20 AM EDT Office Visit [facility] [address] [place] [address] 3rd Floor, [address] [place] [address] Danish Grace MD [address] [place] [address], [address] [address] 05/31/2025 9:30 AM EDT Appointment Non-Invasive Cardiology [address] [place] [address] [place] [address] Danish Grace MD [address] [place] [address], [address] [place] [address] 06/08/2025 10:00 AM EDT Office Visit [facility] [address] [place] [address] Abraham Stafford MD [address] [place] [address], [address] [place] [address] documented as of this encounter Results * (ABNORMAL) CBC and differential (10/21/2017 8:30 AM EST) WBC 9.73 3.40 - 11.20 K/uL [facility] RBC 4.26(L) 4.50 - 5.50 M/uL [facility] HGB 13.8 13.0 - 17.0 g/dL [facility] HCT 40.0 40.0 - 51.0 % [facility] PLT 222 130 - 400 K/uL [facility] MCV 93.9 79.0 - 98.0 fL [facility] MCH 32.4 27.0 - 34.8 pg [facility] MCHC 34.5 31.5 - 36.0 g/dL [facility] RDW 13.6 10.8 - 14.6 % [facility] MPV 11.2 9.4 - 12.4 fl [facility] NRBC 0.00 /100 WBCs [facility] ABSOLUTE NRBC 0.00 K/uL [facility] DIFF METHOD Auto [facility] NEUTS 69.1 45.30 - 77.70 % [facility] LYMPHS 15.7 12.30 - 39.70 % [facility] MONOS 10.7 4.10 - 12.80 % [facility] EOS 3.4 0 - 7.2 % [facility] BASOS 0.6 0 - 2.80 % [facility] Granulocytes, immature (%) 0.5 0.0 - 0.9 % [facility] ABSOLUTE NEUTS 6.72 1.40 - 7.70 K/uL [facility] ABSOLUTE LYMPHS 1.53 0.60 - 3.20 K/uL [facility] ABSOLUTE MONOS 1.04(H) 0.11 - 0.59 K/uL [facility] ABSOLUTE EOS 0.33 0.01 - 0.50 K/uL [facility] ABSOLUTE BASOS 0.06 0.00 - 0.08 K/uL [facility] Granulocytes, immature 0.05 0.00 - 0.05 K/uL [facility] Blood 10/21/2017 8:30 AM EST 10/21/2017 10:29 AM EST us Kellee Hadley MD LAB BLOOD ORDERABLES Final Result [address] [address] * (ABNORMAL) Vancomycin, trough (10/21/2017 8:30 AM EST) VANCOMYCIN,TRO UGH 9.5(L) 10.0 - 20.0 ug/mL [facility] Comment: Interpretation: Therapeutic Range: 10.0 - 20.0 ug/ml. Toxic: Greater than 30.0 ug/ml. Blood 10/21/2017 8:30 AM EST 10/21/2017 10:29 AM EST us Kellee Hadley MD LAB BLOOD ORDERABLES Final Result Performing Organization Address [facility]/ZIP Co de Phone Number [address] [address] * (ABNORMAL) Sedimentation rate (ESR) (10/21/2017 8:30 AM EST) Pathologist [facility] ESR 33(H) 0 - 20 mm/h [facility] Blood 10/21/2017 8:30 AM EST 10/21/2017 10:29 AM EST us Kellee Hadley MD LAB BLOOD ORDERABLES Final Result Performing Organization Address [facility]/ZIP Co de Phone Number [address] [address] * CPK (creatine kinase) (10/21/2017 8:30 AM EST) CREATINE KINASE 158 35 - 232 U/L [facility] Blood 10/21/2017 8:30 AM EST 10/21/2017 10:29 AM EST us Kellee Hadley MD LAB BLOOD ORDERABLES Final Result Performing Organization Address [facility]/ZIP Co de Phone Number [address] [address] * (ABNORMAL) Comprehensive metabolic panel (10/21/2017 8:30 AM EST) SODIUM 137 133 - 146 mmol/L [facility] POTASSIUM 4.8 3.3 - 5.1 mmol/L [facility] CHLORIDE 101 96 - 108 mmol/L [facility] CO2 20(L) 21 - 35 mmol/L [facility] BUN 19 6 - 19 mg/dL [facility] CREATININE 1.10 0.5 - 1.5 mg/dL [facility] GLUCOSE 227(H) 70 - 99 mg/dL [facility] ALBUMIN 3.6(L) 3.9 - 4.8 g/dL [facility] TOTAL PROTEIN 6.9 6.5 - 8.0 g/dL [facility] CALCIUM 9.2 8.4 - 10.3 mg/dL [facility] ALKALINE PHOSPHATASE 161(H) 39 - 117 U/L [facility] TOTAL BILIRUBIN 0.6 0 - 1.2 mg/dL [facility] AST 17 0 - 37 U/L [facility] ALT 13 0 - 40 U/L [facility] GLOBULIN 3.3 1 - 4.8 g/dL [facility] EGFR >60 >60 mL/min/1.7 3m2 [facility] Comment:Abnormal if <60. If patient is -Belizean, multiply the result by 1.21. ANION GAP 21(H) 10 - 20 mmol/L [facility] Blood 10/21/2017 8:30 AM EST 10/21/2017 10:29 AM EST us Kellee Hadley MD LAB BLOOD ORDERABLES Final Result Performing Organization Address City/State/[facility] Co de Phone Number [address] [address] documented in this encounter Visit Diagnoses Diagnosis Osteomyelitis, unspecified site, unspecified type- Primary documented in this encounter Care Teams Tire Beader Maker Relationship Specialty Start Date End Date Bony Wang MD [email or web address] PCP - General 06/18/17 09/02/18 Susanna Solo DO [address] [place] [address] [email or web address] PCP - General Family Medicine 09/03/18 01/02/21 Abraham Stafford MD [address] [place] [address], [address] [place] [address] [email or web address] PCP - General Internal Medicine 01/03/21 01/03/21 Freddie Granados MD [address] [place] [address], [address] [place] [address] [email or web address] PCP - General Internal Medicine 01/04/21 05/20/21 Abraham Stafford MD [address] [place] [address], [address] [place] [address] [email or web address] PCP - General Internal Medicine 05/21/21 Bony Wang MD [address] [place] [address] [address] [place] [address] [email or web address] Insurance Assigned Provider 11/28/17 05/28/19 Susanna Solo DO [address] [place] [address] [email or web address] Insurance Assigned Provider 05/28/19 12/07/21 Chasidy Diop RN [address] [place] [address] [email or web address] iCMP Sorter Packer 10/28/19 11/01/19 Abraham Stafford MD [address] [place] [address], [address] [place] [address] [email or web address] Insurance Assigned Provider 12/05/23 documented as of this encounter Additional Source Comments The information contained in this document represents components of the legal health record. It is not the complete legal health record.[facility]
--- OUTSIDE RECORDS SUMMARY | 2025-05-08 16:44 | XMS_ITS | Encounter Summary ---
Author Organization [facility] Address [address] [place] [address] [place] [address] Phone Care Team Providers Care Go Cart Mechanic Name Role Phone Susanna Solo DO Primary Care Provider +- [phone] Susanna Solo DO Unavailable [phone] Abraham Stafford MD Primary Care Provider [phone] Freddie Granados MD Primary Care Provider + [phone] Abraham Stafford MD Primary Care Provider [phone] Abraham Stafford MD Unavailable [phone] Encounter Details Date Type Department Care Team (Late st Contact Info) Description 06/30/2020 Procedure Pass Non-Invasive Cardiology [address] [place] [address] Social History Tobacco Use Types Packs/Day Years [...] Encounters Date Type Department Care Team (Late Contact Info) Description 11/22/2024 Procedure Pass Echo Lab [place] [address] [place] [address] 04/25/2025 Procedure Pass Non-Invasive Cardiology [address] [place] [address] [place] [address] 05/22/2025 10:30 AM EDT Appointment Echo Lab [address] [place] [address] Claribel Kendall, DNP [address] [place] [address] 05/31/2025 9:20 AM EDT Office Visit [facility] [address] [place] [address] 3rd Floor, [address] [place] [address] Danish Grace MD [address] [place] [address], [address] [place] [address] 05/31/2025 9:30 AM EDT Appointment Non-Invasive Cardiology [address] [place] [address] [place] [address] Danish Grace MD [address] [place] [address], [address] [place] [address] 06/08/2025 10:00 AM EDT Office Visit [address] [address] Abraham Stafford MD [address] [place] [address], [address] [place] [address] documented as of this encounter Visit Diagnoses Not on filedocumented in this encounter Care Teams Go Cart Mechanic Relationship Specialty Start Date End Date Susanna Solo DO 9 [place] [address] [email or web address] PCP - General Family Medicine 09/03/18 01/02/21 Abraham Stafford MD [address] [place] [address], [address] [place] [address] PCP - General Internal Medicine 01/03/21 01/03/21 Freddie Granados MD [address] [place] [address], [address] [place] [address] PCP - General Internal Medicine 01/04/21 05/20/21 Abraham Stafford MD [address] [place] [address], [address] [place] [address] PCP - General Internal Medicine 05/21/21 Susanna Solo DO [address] [place] [address] [email or web address] Insurance Assigned Provider 05/28/19 12/07/21 Abraham Stafford MD [address] [place] [address], [address] [place] [address] [email or web address] Insurance Assigned Provider 12/05/23 documented as of this encounter Additional Source Comments The information contained in this document represents components of the legal health record. It is not the complete legal health record.[facility]
--- OUTSIDE RECORDS SUMMARY | 2025-05-08 16:44 | XMS_ITS | Encounter Summary ---
Author Organization [facility] Address [address] [place] [address] Phone Care Team Providers Care Firebrick Layer Helper Name Role Phone Susanna Solo DO Primary Care Provider [phone] Susanna Solo DO Unavailable [phone] Abraham Stafford MD Primary Care Provider [phone] Freddie Granados MD Primary Care Provider + [phone] Abraham Stafford MD Primary Care Provider [phone] Abraham Stafford MD Unavailable [phone] Reason for Visit * Reason Onset Date Comments schedule Cardiac rehab intake 03/13/2020 Encounter Details Date Type Department Care Team (Late Contact Info) Description 03/15/2020 Telephone [facility] Cardiopulmonary Rehabilitation [address] [place], [place] [id number] Veronica Lau RN [email or web address] Cardiac rehab intake Social History Tobacco Use Types Packs/Day Years Used Date Smoking Tobacco: Former Smokeless Tobacco: Never Quit: 07/02/1987 Alcohol Use Standard Drinks/Week Comments Yes 21 (1 standard drink = 0.6 oz pu re alcohol) Sex and Gender Information Value Date Recorded Sex Assigned at Male 09/07/2017 9:38 AM EST Legal Sex Male 10:06 PM EDT Gender Identity Male 09/07/2017 9:38 AM EST Sexual Orientation Straight 09/07/2017 9: 38 AM EST documented as of this encounter Plan of Treatment Upcoming Encounters Date Type Department Care Team (Late Contact Info) Description 11/22/2024 Procedure Pass Echo Lab [address] [place] [address] 04/25/2025 Procedure Pass Non-Invasive Cardiology [address] [place] [address] [place] [address] 05/22/2025 10:30 AM EDT Appointment Echo Lab [address] [place] [address] Claribel Kendall, [address] [address] 05/31/2025 9:20 AM EDT Office Visit [facility] [address] [place] [address] 3rd Floor, [address] [place] [address] Danish Grace MD [address] [place] [address], [address] [place] [address] 05/31/2025 9:30 AM EDT Appointment Non-Invasive Cardiology [address] [place] [address] [place] [address] Danish Grace MD [address] [place] [address], [address] [place] [address] 06/08/2025 10:00 AM EDT [facility] Family Medicine [address] [place] [address] Abraham Stafford MD [address] [place] [address], [address] [place] [address] documented as of this encounter Visit Diagnoses Not on filedocumented in this encounter Care Teams Firebrick Layer Helper Relationship Specialty Start Date End Date Susanna Solo DO [address] [place] [address] [email or web address] PCP - General Family Medicine 09/03/18 01/02/21 Abraham Stafford MD [address] [place] [address], [address] [place] [address] PCP - General Internal Medicine 01/03/21 01/03/21 Freddie Granados MD [address] [place] [address], [address] [place] [address] PCP - General Internal Medicine 01/04/21 05/20/21 Abraham Stafford MD [address] [place] [address], [address] [place] [address] [email or web address] PCP - General Internal Medicine 05/21/21 Susanna Solo DO [address] [place] [address] [email or web address] Insurance Assigned Provider 05/28/19 12/07/21 Abraham Stafford MD [address] [place] [address], [address] [place] [place] [address] [email or web address] Insurance Assigned Provider 12/05/23 documented as of this encounter Additional Source Comments The information contained in this document represents components of the legal health record. It is not the complete legal health record.[facility]
--- OUTSIDE RECORDS SUMMARY | 2025-05-08 16:44 | XMS_ITS | Encounter Summary ---
Author Organization [facility] Address [address] [place] [address] [place] [address] Phone Care Team Providers Care Forging Roll Operator Name Role Phone Susanna Solo DO Primary Care Provider [phone]- [phone] Susanna Solo DO Unavailable [phone] Abraham Stafford MD Primary Care Provider [phone] Freddie Granados MD Primary Care Provider + [phone] Abraham Stafford MD Primary Care Provider [phone] Abraham Stafford MD Unavailable [phone] Encounter Details Date Type Department Care Team (Late st Contact Info) Description 08/09/2020 Procedure Pass Non-Invasive Cardiology [address] [place] [address] Social History Tobacco Use Types Packs/Day Years [...] Info) Description 11/22/2024 Procedure Pass Echo Lab [place] [address] [place] [address] 04/25/2025 Procedure Pass Non-Invasive Cardiology [address] [place] [address] [place] [address] 05/22/2025 10:30 AM EDT Appointment Echo Lab [address] [place] [address] Claribel Kendall, [facility] [address] [place] [address] 05/31/2025 9:20 AM EDT Office Visit [facility] [address] [place] [address] 3rd Floor, [address] [place] [address] Danish Grace MD [address] [place] [address], [address] [address] 05/31/2025 9:30 AM EDT Appointment Non-Invasive Cardiology [address] [place] [address] [place] [address] Danish Grace MD [address] [place] [address], [address] [place] [address] 06/08/2025 10:00 AM EDT Office Visit [address] [place] [address] Abraham Stafford MD [address] [place] [address], [address] [place] [address] documented as of this encounter Visit Diagnoses Not on filedocumented in this encounter Additional Health Concerns Assessment Noted Time PHQ-2 Depression Total Score: 0 10/23/19 21 11:07 AM EST documented as of this encounter Care Teams Forging Roll Operator Relationship Specialty Start Date End Date Susanna Solo DO [address] [place] [address] [email or web address] PCP - General Family Medicine 09/03/18 01/02/21 Abraham Stafford MD 22 [facility], [address] [place] [address] PCP - General Internal Medicine 01/03/21 01/03/21 Freddie Granados MD [address] [place] [address], [address] [place] [address] PCP - General Internal Medicine 01/04/21 05/20/21 Abraham Stafford MD [address] [place] [address], [address] [place] [address] [email or web address] PCP - General Internal Medicine 05/21/21 Susanna Solo DO [address] [place] [address] [email or web address] Insurance Assigned Provider 05/28/19 12/07/21 Abraham Stafford MD [address] [place] [address], [address] [place] [address] [email or web address] Insurance Assigned Provider 12/05/23 documented as of this encounter Additional Source Comments The information contained in this document represents components of the legal health record. It is not the complete legal health record.[facility]
--- OUTSIDE RECORDS SUMMARY | 2025-05-08 16:44 | XMS_ITS | Encounter Summary ---
Author Organization [facility] Address [address] [place] [address] [place] [address] Phone Care Team Providers Care Crew Leader/Control Room Operator Name Role Phone SoloSusanna Mary DO Unavailable [phone] Abraham Stafford MD Primary Care Provider [phone] Abraham Stafford MD Unavailable [phone] Encounter Details Date Type Department Care Team (Late st Contact Info) Description 11/20/2021 Prep for Surgery [facility] Orthopedics & Sports Medicine [address] [place] [address] Mindy Mcleod MD [address] [place] [address] Orthopedics & Sports Medicine, [facility] [place] [address] [email or web address] Social History Tobacco Use Types Packs/Day Years [...] Info) Description 11/22/2024 Procedure Pass Echo Lab [address] [place] [address] 04/25/2025 Procedure Pass Non-Invasive Cardiology [address] [place] [address] 05/22/2025 10:30 AM EDT Appointment Echo Lab [address] [place] [address] Claribel Kendall, [address] [address] 05/31/2025 9:20 AM EDT Office Visit [facility] [address] [place] [address] 3rd Floor, [address] [place] [address] Danish Grace MD [address] [place] [address], [address] [place] [address] 05/31/2025 9:30 AM EDT Appointment Non-Invasive Cardiology [address] [place] [address] [place] [address] Danish Grace MD [address] [place] [address], [address] [place] [address] 06/08/2025 10:00 AM EDT Office Visit [facility] Medicine [address] [place] [address] [place] [address] Abraham Stafford MD [address] [place] [address], [address] [place] [address] documented as of this encounter Visit Diagnoses Not on filedocumented in this encounter Additional Health Concerns Assessment Noted Time PHQ-2 Depression Total Score: 0 06/20/20 21 3:03 PM EDT documented as of this encounter Care Teams Crew Leader/Control Room Operator Relationship Specialty Start Date End Date Abraham Stafford MD [address] [place] [address], [address] [place] [address] PCP - General Internal Medicine 05/21/21 Susanna Solo DO [address] [place] [address] [email or web address] Insurance Assigned Provider 05/28/19 12/07/21 Abraham Stafford MD [address] [place] [address], [address] [place] [address] [email or web address] Insurance Assigned Provider 12/05/23 documented as of this encounter Additional Source Comments The information contained in this document represents components of the legal health record. It is not the complete legal health record.[facility]
--- OUTSIDE RECORDS SUMMARY | 2025-05-08 16:44 | XMS_ITS | Encounter Summary ---
Author Organization [facility] Address [address] [place] [address] [place] [address] Phone Care Team Providers Care College [employer] Department Head Name Role Phone Bony Wang MD Primary Care Provide r Bony Wang MD Unavailable [phone] Susanna Solo DO Primary Care Provider + [phone] Susanna Solo DO Unavailable [phone] Chasidy Diop RN Unavailable [email or web address] Abraham Stafford MD Primary Care Provider [phone] Freddie Granados MD Primary Care Provider [phone] Abraham Stafford MD Primary Care Provider [phone] Abraham Stafford MD Unavailable [phone] Encounter Details Date Type Department Care Team (Latest Contact Info) Description 10/27/2017 Transcribe Orders [facility] Laboratory [address] [place] [address] Kellee Hadley MD [address] [place], [place] [phone] Acute osteomyelitis of metatarsal bone of right foot (Primary Dx) Social History Tobacco Use Types [...] Info) Description 11/22/2024 Procedure Pass Echo Lab [address] [place] [address] 04/25/2025 Procedure Pass Non-Invasive Cardiology [address] [place] [address] [place] [address] 05/22/2025 10:30 AM EDT Appointment Echo Lab [address] [place] [address] Claribel Kendall, [address] [address] 05/31/2025 9:20 AM EDT Office Visit [facility] [address] [place] [address] 3rd Floor, [address] [place] [address] Danish Grace MD [address] [place] [address], [address] [place] [address] 05/31/2025 9:30 AM EDT Appointment Non-Invasive Cardiology [address] [place] [address] [place] [address] Danish Grace MD [address] [place] [address], [address] [place] [address] 06/08/2025 10:00 AM EDT Office Visit [facility] [address] [place] [address] Abraham Stafford MD [address] [place] [address], [address] [place] [address] documented as of this encounter Results * Vancomycin, trough (10/27/2017 6:14 PM EST) VANCOMYCIN,TROU GH 15.9 10.0 - 20.0 ug/mL [facility] Comment: Interpretation: Therapeutic Range: 10.0 - 20.0 ug/ml. Toxic: Greater than 30.0 ug/ml. Blood 10/27/2017 6:14 PM EST 10/27/2017 6:16 PM EST Kellee Hadley MD LAB BLOOD ORDERABLES Final Result [address] [address] * Creatinine/eGFR (10/27/2017 6:14 PM EST) [facility] CREATININE 1.10 0.5 - 1.5 mg/dL [facility] EGFR >60 >60 mL/min/1.7 3m2 [facility] Comment:Abnormal if <60. If patient is -Indonesian, multiply the result by 1.21. Blood 10/27/2017 6:14 PM EST 10/27/2017 6:16 PM EST Kellee Hadley MD LAB BLOOD ORDERABLES Final Result Performing Organization Address [facility] Co de Phone Number [address] [address] * (ABNORMAL) BUN (10/27/2017 6:14 PM EST) [facility] BUN 22(H) 6 - 19 mg/dL [facility] Blood 10/27/2017 6:1 4 PM EST 10/27/2017 6:16 PM EST Kellee Hadley MD LAB BLOOD ORDERABLES Final Result Performing Organization Address [facility] Co de Phone Number [address] [address] * (ABNORMAL) CBC and differential (10/27/2017 6:14 PM EST) [facility] WBC 7.24 3.40 - 11.20 K/uL [facility] RBC 4.05(L) 4.50 - 5.50 M/uL [facility] HGB 12.9(L) 13.0 - 17.0 g/dL [facility] HCT 36.7(L) 40.0 - 51.0 % [facility] PLT 259 130 - 400 K/uL [facility] MCV 90.6 79.0 - 98.0 fL [facility] MCH 31.9 27.0 - 34.8 pg [facility] MCHC 35.1 31.5 - 36.0 g/dL [facility] RDW 13.3 10.8 - 14.6 % [facility] MPV 9.8 9.4 - 12.4 fl [facility] NRBC 0.00 /100 WBCs [facility] ABSOLUTE NRBC 0.00 K/uL [facility] DIFF METHOD Auto [facility] NEUTS 52.9 45.30 - 77.70 % [facility] LYMPHS 26.5 12.30 - 39.70 % [facility] MONOS 15.1(H) 4.10 - 12.80 % [facility] EOS 4.4 0 - 7.2 % [facility] BASOS 0.8 0 - 2.80 % [facility] Granulocytes, immature (%) 0.3 0.0 - 0.9 % [facility] ABSOLUTE NEUTS 3.83 1.40 - 7.70 K/uL [facility] ABSOLUTE LYMPHS 1.92 0.60 - 3.20 K/uL [facility] ABSOLUTE MONOS 1.09(H) 0.11 - 0.59 K/uL [facility] ABSOLUTE EOS 0.32 0.01 - 0.50 K/uL [facility] ABSOLUTE BASOS 0.06 0.00 - 0.08 K/uL [facility] Granulocytes, immature 0.02 0.00 - 0.05 K/uL [facility] Blood 10/27/2017 6:14 PM EST 10/27/2017 6:16 PM EST us Kellee Hadley MD LAB BLOOD ORDERABLES Final Result [address] [address] * (ABNORMAL) LFTs (hepatic panel) (10/27/2017 6:14 PM EST) ALKALINE PHOSPHATASE 128(H) 39 - 117 U/L [facility] TOTAL BILIRUBIN 0.4 0 - 1.2 mg/dL [facility] DIRECT BILIRUBIN <0.2 0 - 0.3 mg/dL [facility] Bilirubin (Indirect) NOT CALCULATED 0 - 1.5 mg/dL [facility] AST 17 0 - 37 U/L [facility] ALT 13 0 - 40 U/L [facility] TOTAL PROTEIN 7.0 6.5 - 8.0 g/dL [facility] ALBUMIN 3.5(L) 3.9 - 4.8 g/dL [facility] GLOBULIN 3.5 1 - 4.8 g/dL [facility] A/G Ratio 1.00 1.00 - 4.80 RATIO [facility] Blood 10/27/2017 6:14 PM EST 10/27/2017 6:16 PM EST us Kellee Hadley MD LAB BLOOD ORDERABLES Final Result [address] [address] documented in this encounter Visit Diagnoses Diagnosis Acute osteomyelitis of metatarsal bone of right foot- Primary documented in this encounter Care Teams College Or University Department Head Relationship Specialty Start Date End Date Bony Wang MD [email or web address] [email or web address] PCP - General 06/18/17 09/02/18 Susanna Solo DO [address] [place] [address] [email or web address] PCP - General Family Medicine 09/03/18 01/02/21 Abraham Stafford MD [address] [place] [address], [address] [place] [address] [email or web address] PCP - General Internal Medicine 01/03/21 01/03/21 Freddie Granados MD [address] [place] [address], [address] [place] [address] PCP - General Internal Medicine 01/04/21 05/20/21 Abraham Stafford MD [address] [place] [address], [address] [place] [address] PCP - General Internal Medicine 05/21/21 Bony Wang MD [address] [place] [address] Floor 1 [place] [address] [email or web address] Insurance Assigned Provider 11/28/17 05/28/19 Susanna Solo DO [address] [place] [address] [email or web address] Insurance Assigned Provider 05/28/19 12/07/21 Chasidy Diop RN [address] [place] [address] [email or web address] Chairman President And Chief Executive Officer 10/28/19 11/01/19 Abraham Stafford MD [address] [place] [address], [address] [place] [address] [email or web address] Insurance Assigned Provider 12/05/23 documented as of this encounter Additional Source Comments The information contained in this document represents components of the legal health record. It is not the complete legal health record.[facility]
--- OUTSIDE RECORDS SUMMARY | 2025-05-08 16:44 | XMS_ITS | Encounter Summary ---
Author Organization [facility] Address [address] [facility] [address] [place] [address] Phone Care Team Providers Care Accounting Software Specialist Name Role Phone Bony Wang MD Primary Care Provide r Bony Wang MD Unavailable [phone] Susanna Solo DO Primary Care Provider + [phone] Susanna Solo DO Unavailable [phone] Chasidy Diop RN Unavailable [email or web address] Abraham Stafford MD Primary Care Provider [phone] Freddie Granados MD Primary Care Provider [phone] Abraham Stafford MD Primary Care Provider [phone] Abraham Stafford MD Unavailable [phone] Encounter Details Date Type Department Care Team (Latest Contact Info) Description 11/17/2017 Transcribe Orders [facility] Specimen Processing [address] [place] [address] Kellee Hadley MD [address] [place], [place] [id number] Osteomyelitis, unspecified site, unspecified type (Primary Dx) [...] Info) Description 11/22/2024 Procedure Pass Echo Lab [address] [place] [address] 04/25/2025 Procedure Pass Non-Invasive Cardiology [address] [place] [address] [place] [address] 05/22/2025 10:30 AM EDT Appointment Echo Lab [address] [place] [address] Claribel Kendall, [address] [address] 05/31/2025 9:20 AM EDT Office Visit [facility] [address] [place] [address] 3rd Floor, [address] [place] [address] Danish Grace MD [address] [place] [address], [address] [address] 05/31/2025 9:30 AM EDT Appointment Non-Invasive Cardiology [address] [place] [address] [place] [address] Danish Grace MD [address] [place] [address], [address] [place] [address] 06/08/2025 10:00 AM EDT Office Visit [facility] [address] [address] Abraham Stafford MD [address] [place] [address], [address] [place] [address] documented as of this encounter Results * Vancomycin, trough (11/17/2017 8:40 AM EDT) VANCOMYCIN,TROU GH 10.9 10.0 - 20.0 ug/mL [facility] Comment: Interpretation: Therapeutic Range: 10.0 - 20.0 ug/ml. Toxic: Greater than 30.0 ug/ml. Blood 11/17/2017 8:40 AM EDT 11/17/2017 9:30 AM EDT Kellee Hadley MD LAB BLOOD ORDERABLES Final Result Performing Organization Address [facility] de Phone Number [address] [address] * Creatinine/eGFR (11/17/2017 8:40 AM EDT) Pathologist [facility] CREATININE 1.00 0.5 - 1.5 mg/dL [facility] EGFR 76 >59 mL/min/1.7 3m2 [facility] Comment:If patient is black, multiply result by 1.159. The eGFR calculation has changed from the MDRD equation to the CKD-EPI equation as of November 03, 2017. Blood 11/17/2017 8:40 AM EDT 11/17/2017 9:30 AM EDT Kellee Hadley MD LAB BLOOD ORDERABLES Final Result Performing Organization Address [facility] de Phone Number [address] [address] * BUN (11/17/2017 8:40 AM EDT) BUN 19 6 - 19 mg/dL [facility] Blood 11/17/2017 8:40 AM EDT 11/17/2017 9:30 AM EDT Kellee Hadley MD LAB BLOOD ORDERABLES Final Result Performing Organization Address [facility] Co de Phone Number [address] [address] * (ABNORMAL) CBC and differential (11/17/2017 8:40 AM EDT) WBC 5.76 3.40 - 11.20 K/uL [facility] RBC 4.62 4.50 - 5.50 M/uL [facility] HGB 14.7 13.0 - 17.0 g/dL [facility] HCT 41.3 40.0 - 51.0 % [facility] PLT 186 130 - 400 K/uL [facility] MCV 89.4 79.0 - 98.0 fL [facility] MCH 31.8 27.0 - 34.8 pg [facility] MCHC 35.6 31.5 - 36.0 g/dL [facility] RDW 13.5 10.8 - 14.6 % [facility] MPV 10.4 9.4 - 12.4 fl [facility] NRBC 0.00 /100 WBCs [facility] ABSOLUTE NRBC 0.00 K/uL [facility] DIFF METHOD Auto [facility] NEUTS 54.7 45.30 - 77.70 % [facility] LYMPHS 26.6 12.30 - 39.70 % [facility] MONOS 14.8(H) 4.10 - 12.80 % [facility] EOS 2.8 0 - 7.2 % [facility] BASOS 0.9 0 - 2.80 % [facility] Granulocytes, immature (%) 0.2 0.0 - 0.9 % [facility] ABSOLUTE NEUTS 3.16 1.40 - 7.70 K/uL [facility] ABSOLUTE LYMPHS 1.53 0.60 - 3.20 K/uL [facility] ABSOLUTE MONOS 0.85(H) 0.11 - 0.59 K/uL [facility] ABSOLUTE EOS 0.16 0.01 - 0.50 K/uL [facility] ABSOLUTE BASOS 0.05 0.00 - 0.08 K/uL [facility] Granulocytes, immature 0.01 0.00 - 0.05 K/uL [facility] Blood 11/17/2017 8:40 AM EDT 11/17/2017 9:30 AM EDT Kellee Hadley MD LAB BLOOD ORDERABLES Final Result Performing Organization Address City/State/[facility] Co de Phone Number [address] [address] * (ABNORMAL) LFTs (hepatic panel) (11/17/2017 8:40 AM EDT) ALKALINE PHOSPHATASE 141(H) 39 - 117 U/L [facility] TOTAL BILIRUBIN 0.7 0.0 - 1.2 mg/dL [facility] DIRECT BILIRUBIN <0.2 0 - 0.3 mg/dL [facility] Bilirubin (Indirect) NOT CALCULATED 0 - 1.5 mg/dL [facility] AST 19 0 - 37 U/L [facility] ALT 18 0 - 40 U/L [facility] TOTAL PROTEIN 6.7 6.5 - 8.0 g/dL [facility] ALBUMIN 3.7(L) 3.9 - 4.8 g/dL [facility] GLOBULIN 3.0 1 - 4.8 g/dL [facility] A/G Ratio 1.23 1.00 - 4.80 RATIO [facility] Blood 11/17/2017 8:40 AM EDT 11/17/2017 9:30 AM EDT us Kellee Hadley MD LAB BLOOD ORDERABLES Final Result Performing Organization Address [facility] Co de Phone Number [address] [address] documented in this encounter Visit Diagnoses Diagnosis Osteomyelitis, unspecified site, unspecified type- Primary documented in this encounter Care Teams Accounting Software Specialist Relationship Specialty Start Date End Date Bony Wang MD [email or web address] PCP - General 06/18/17 09/02/18 Susanna Solo DO [address] [place] [address] [email or web address] PCP - General Family Medicine 09/03/18 01/02/21 Abraham Stafford MD [address] [facility], [address] [place] [address] [email or web address] PCP - General Internal Medicine 01/03/21 01/03/21 Freddie Granados MD [address] [facility], [address] [place] [address] PCP - General Internal Medicine 01/04/21 05/20/21 Abraham Stafford MD [address] [facility], [address] [place] [address] [email or web address] PCP - General Internal Medicine 05/21/21 Bony Wang MD [address] [facility] Floor 1 [place] [address] [email or web address] Insurance Assigned Provider 11/28/17 05/28/19 Susanna Solo DO [address] [place] [address] [email or web address] Insurance Assigned Provider 05/28/19 12/07/21 Chasidy Diop, MAINE [address] [place] [address] [email or web address] [email or web address] Lacing String Cutter 10/28/19 11/01/19 Abraham Stafford MD [address] [facility], [address] [place] [address] [email or web address] Insurance Assigned Provider 12/05/23 documented as of this encounter Additional Source Comments The information contained in this document represents components of the legal health record. It is not the complete legal health record.[facility]
--- OUTSIDE RECORDS SUMMARY | 2025-05-08 16:44 | XMS_ITS | Encounter Summary ---
Author Organization [facility] Address [address] [place] [address] Phone Care Team Providers Care Marine Farmer Name Role Phone Susanna Solo DO Primary Care Provider [phone] Susanna Solo DO Unavailable [phone] Abraham Stafford MD Primary Care Provider [phone] Freddie Granados MD Primary Care Provider + [phone] Abraham Stafford MD Primary Care Provider [phone] Abraham Stafford MD Unavailable [phone] Reason for Referral * Consultation (Routine) - Closed Specialty Diagnoses / Procedures Referred By Contlin t Referred To Contact Cardiac Rehabilitation Diagnoses S/P CABG x 1 Corazon Pink NP [address] [facility] [place] [address] Phone: tel: fax: [facility] [address] [place] [address] Phone: tel: Referral ID Status Reason Start Date Expiration Date Visits Re quested Visits Authorized [id number] Closed 11/08/2019 11/07/2020 1 1 Encounter Details Date Type Department Care Team (Late st Contact Info) Description 11/08/2019 Transcribe Orders [facility] Department [address] [place] [address] Corazon Pink NP [address] [facility] [place] [address] S/P CABG x 1 (Primary Dx) Social History Tobacco Use Types [...] Info) Description 11/22/2024 Procedure Pass Echo Lab [address] [place] [address] 04/25/2025 Procedure Pass Non-Invasive Cardiology [address] [place] [address] [place] [address] 05/22/2025 10:30 AM EDT Appointment Echo Lab [place] [address] [place] [address] Claribel Kendall, [address] [address] 05/31/2025 9:20 AM EDT Office Visit [facility] [address] [place] [address] 3rd Floor, [address] [address] Danish Grace MD [address] [place] [address] 05/31/2025 9:30 AM EDT Appointment Non-Invasive Cardiology Andre[address] [place] [address] Danish Grace MD [address] [place] [address], [address] [address] 06/08/2025 10:00 AM EDT [facility] [address] [address] Abraham Stafford MD [address] [place] [address], [address] [place] [address] [email or web address] Scheduled Referrals Name Type Priority Associated Diagnoses Order Schedule Ambulatory referral to [facility] Cardiac Rehab Outpatient Referral Routine S/P CABG x 1 Ordered: 11/08/2019 documented as of this encounter Visit Diagnoses Diagnosis 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 documented in this encounter Care Teams Marine Farmer Relationship Specialty Start Date End Date Susanna Solo DO [address] [place] [address] [email or web address] PCP - General Family Medicine 09/03/18 01/02/21 Abraham Stafford MD [address] [place] [address], [address] [place] [address] [email or web address] PCP - General Internal Medicine 01/03/21 01/03/21 Freddie Granados MD [address] [place] [address], [address] [place] [address] [email or web address] PCP - General Internal Medicine 01/04/21 05/20/21 Abraham Stafford MD [address] [place] [address], [address] [place] [address] [email or web address] PCP - General Internal Medicine 05/21/21 Susanna Solo DO [address] [place] [address] [email or web address] Insurance Assigned Provider 05/28/19 12/07/21 Abraham Stafford MD [address] [place] [address], [address] [place] [address] [email or web address] Insurance Assigned Provider 12/05/23 documented as of this encounter Additional Source Comments The information contained in this document represents components of the legal health record. It is not the complete legal health record.[facility]
--- OUTSIDE RECORDS SUMMARY | 2025-05-08 16:44 | XMS_ITS | Encounter Summary ---
Author Organization [facility] Address [address] [place] [address] [place] [address] Phone Care Team Providers Care As400 Consultant Name Role Phone Bony Wang MD Unavailable Susanna Solo DO Primary Care Provider + [phone] Susanna Solo DO Unavailable [phone] Chasidy Diop RN Unavailable [email or web address] Abraham Stafford MD Primary Care Provider [phone] Freddie Granados MD Primary Care Provider + [phone] Abraham Stafford MD Primary Care Provider [phone] Abraham Stafford MD Unavailable [phone] Encounter Details Date Type Department Care Team (Late st Contact Info) Description 09/06/2018 Procedure Pass [facility] Endoscopy Admitting Dept Virtual Department [address] [place] [address] Social History Tobacco Use Types Packs/Day Years [...] AM EST documented as of this encounter Functional Status documented as of this encounter Plan of Treatment Upcoming Encounters Date Type Department Care Team (Late st Contact Info) Description 11/22/2024 Procedure Pass Echo Lab [address] [place] [address] 04/25/2025 Procedure Pass Non-Invasive Cardiology [address] [place] [address] 05/22/2025 10:30 AM EDT Appointment Echo Lab [address] [place] [address] Claribel Kendall, [address] [address] 05/31/2025 9:20 AM EDT Office Visit [facility] [address] [place] [address] 3rd Floor, [address] [place] [address] Danish Grace MD [address] [place] [address], [address] [place] [address] 05/31/2025 9:30 AM EDT Appointment Non-Invasive Cardiology [address] [place] [address] [place] [address] Danish Grace MD [address] [place] [address], [address] [place] [address] 06/08/2025 10:00 AM EDT Office Visit [facility] Medicine [address] [place] [address] [place] [address] Abraham Stafford MD [address] [place] [address], [address] [place] [address] documented as of this encounter Visit Diagnoses Not on filedocumented in this encounter Care Teams As400 Consultant Relationship Specialty Start Date End Date Susanna Solo DO [address] [place] [address] [email or web address] PCP - General Family Medicine 09/03/18 01/02/21 Abraham Stafford MD [address] [place] [address], [address] [place] [address] [email or web address] PCP - General Internal Medicine 01/03/21 01/03/21 Freddie Granados MD [address] [place] [address], [address] [place] [address] [email or web address] PCP - General Internal Medicine 01/04/21 05/20/21 Abraham Stafford MD [address] [place] [address], [address] [place] [address] [email or web address] PCP - General Internal Medicine 05/21/21 Bony Wang MD [address] [place] [address] Floor 1 [place] [address] [email or web address] Insurance Assigned Provider 11/28/17 05/28/19 Susanna Solo DO [address] [place] [address] [email or web address] Insurance Assigned Provider 05/28/19 12/07/21 Chasidy Diop RN [address] [place] [address] [email or web address] [email or web address] Placement Secretary 10/28/19 11/01/19 Abraham Stafford MD [address] [place] [address], [address] [place] [address] [email or web address] Insurance Assigned Provider 12/05/23 documented as of this encounter Additional Source Comments The information contained in this document represents components of the legal health record. It is not the complete legal health record.[facility]
--- OUTSIDE RECORDS SUMMARY | 2025-05-08 16:44 | XMS_ITS | Encounter Summary ---
Author Organization [facility] Address [address] [place] [address] [place] [address] Phone Care Team Providers Care Loan Review Manager Name Role Phone Susanna Solo Mary DO Unavailable [phone] Freddie Granados MD Primary Care Provider + [phone] Abraham Stafford MD Primary Care Provider [phone] Abraham Stafford MD Unavailable [phone] Encounter Details Date Type Department Care Team (Late st Contact Info) Description 02/12/2021 Ancillary Orders Non-Invasive Cardiology [address] [place] [address] Danisha You MD [address] [place] [phone] [email or web address] Sick sinus syndrome Social History Tobacco Use Types Packs/Day Years [...] Info) Description 11/22/2024 Procedure Pass Echo Lab [place] [address] [place] [address] 04/25/2025 Procedure Pass Non-Invasive Cardiology [address] [place] [address] 05/22/2025 10:30 AM EDT Appointment Echo Lab [address] [place] [address] Enoch Claribelveronica Rodriguez, [address] [address] 05/31/2025 9:20 AM EDT Office Visit [facility] [address] [place] [address] 3rd Floor, [address] [place] [address] Danish Grace MD [address] [place] [address], [address] [place] [address] 05/31/2025 9:30 AM EDT Appointment Non-Invasive Cardiology [address] [place] [address] [place] [address] Danihs Grace MD [address] [place] [address], [address] [place] [address] 06/08/2025 10:00 AM EDT Office Visit [facility] [address] [place] [address] Abraham Stafford MD [address] [place] [address], [address] [place] [address] documented as of this encounter Results * DEVICE CHECK: PPM IN-HOME INTERROGATION (02/12/2021 8:31 AM EDT) Narrative Angel Perdomo DO - 02/19/2021 12:21 PM EDT Reason for appointment: Remote pacemaker interrogation HPI: Routine 3 month remote pacemaker interrogation. No device related complaints. Indication for device: SSS. Examination: Device type: Pacemaker Office Machinery Or Equipment Installer: [employer] Mode: DDDR-ADIR LRL/UPL: 60/130 bpm Mode switches: 0 High V rates: 0 Thresholds, impedances, and sensing stable. Atrial pacin% Ventricular pacin% Battery: 85% longevity Additional comments: Device functioning appropriately. Normal device function. Patient to follow-up for continued monitoring every 3 months. Report prepared by Elana Renteria RN Danisha You MD [facility] ORDER ANDI Final Result documented in this encounter Visit Diagnoses Diagnosis Sick sinus syndrome Sinoatrial node dysfunction Sick sinus syndrome Sinoatrial node dysfunction documented in this encounter Additional Health Concerns Assessment Noted Time PHQ-2 Depression Total Score: 0 10/23/19 11:07 AM EST documented as of this encounter Care Teams Loan Review Manager Relationship Specialty Start Date End Date Freddie Garnados MD [address] [place] [address], [address] [place] [address] [email or web address] PCP - General Internal Medicine 01/04/21 05/20/21 Abraham Stafford MD [address] [place] [address], [address] [place] [address] [email or web address] PCP - General Internal Medicine 05/21/21 Susanna Solo DO [address] [place] [address] [email or web address] Insurance Assigned Provider 05/28/19 12/07/21 Abraham Stafford MD [address] [place] [address], [address] [place] [address] [email or web address] Insurance Assigned Provider 12/05/23 documented as of this encounter Additional Source Comments The information contained in this document represents components of the legal health record. It is not the complete legal health record.[facility]
--- OUTSIDE RECORDS SUMMARY | 2025-05-08 16:44 | XMS_ITS | Encounter Summary ---
Author Organization [facility] Address [address] [facility] [address] [place] [address] Phone Care Team Providers Care Spindle Carver Name Role Phone Susanna Solo DO Primary Care Provider [phone] Susanna Solo DO Unavailable [phone] Chasidy Diop RN Unavailable [email or web address] Abraham Stafford MD Primary Care Provider [phone] Freddie Granados MD Primary Care Provider [phone]- [phone] Abraham Stafford MD Primary Care Provider [phone] Abraham Stafford MD Unavailable [phone] Encounter Details Date Type Department Care Team (Latest Contact Info) Description 09/30/2019 Transcribe Orders [facility] [address] [place], [place] [id number] Laureen Alonzo MD [address] [place] [address], [address] [place] [address] [email or web address] Hyperkalemia (Primary Dx); Essential hypertension, malignant Social History Tobacco Use Types Packs/Day Years [...] Description 11/22/2024 Procedure Pass Echo Lab [address] [place] [address] 04/25/2025 Procedure Pass Non-Invasive Cardiology [address] [place] [address] [place] [address] 05/22/2025 10:30 AM EDT Appointment Echo Lab [address] [place] [address] Claribel Kendall, [address] [address] 05/31/2025 9:20 AM EDT Office Visit [facility] [address] [place] [address] 3rd Floor, [address] [place] [address] Danish Grace MD [address] [place] [address], [address] [address] 05/31/2025 9:30 AM EDT Appointment Non-Invasive Cardiology [address] [place] [address] [place] [address] Danish Grace MD [address] [place] [address], [address] [address] 06/08/2025 10:00 AM EDT Office Visit [facility] [address] [place] [address] Abraham Stafford MD [address] [place] [address], [address] [place] [address] documented as of this encounter Results * Renin (10/03/2019 11:45 AM EST) RENIN ACTIVITY 3.7 ng/ml/h [facility] Comment: (NOTE) REFERENCE VALUE (Peripheral vein specimen) Na-deplete, upright: Mean: 5.9 Range: 2.9-10.8 Na-replete, upright: Mean: 1.0 Range: < or =0.6-3.0 ADDITIONAL INFORMATION Testing performed by Liquid Chromatography-Tandem Mass Spectrometry (LC-MS/MS). This test was developed and its performance characteristics determined by [facility] in a manner consistent with CLIA requirements. This test has not been cleared or approved by the U.S. Food and Drug Administration. Blood 10/03/2019 11:4 5 AM EST 10/03/2019 11:54 AM EST Laureen Alonzo MD LAB BLOOD ORDERABLES Final Re sult [facility] [address] [place] [address] * Aldosterone (09/30/2019 1:01 PM EST) ALDOSTERONE <4.0 <=21 ng/dL [facility] Comment: (NOTE) ADDITIONAL INFORMATION Reference range for patients 11 years and older is based on upright A.M. collection from subjects without sodium restrictions. This test was developed and its performance characteristics determined by [facility] in a manner consistent with CLIA requirements. This test has not been cleared or approved by the U.S. Food and Drug Administration. Blood 09/30/2019 1:01 PM EST 09/30/2019 1:03 PM EST us Laureen Alonzo MD LAB BLOOD ORDERABLES Final Re sult [facility] [address] [place] [address] * TOTAL PROTEIN CREATININE RATIO, RANDOM URINE (09/30/2019 1:01 PM EST) URINE TOTAL PROTEIN 11.8 mg/dL [facility] URINE CREATININE 179 mg/dL [facility] URINE TP CRE RATIO 0.07 0 - 0.19 [facility] Urine (Urine) 09/30/2019 1:0 1 PM EST 09/30/2019 1:04 PM EST Laureen Alonzo MD URINE ORDERABLES Final Result [facility] [address] [place] [address] * (ABNORMAL) CBC (09/30/2019 1:01 PM EST) WBC 5.68 3.40 - 11.20 K/uL [facility] RBC 4.13(L) 4.50 - 5.50 M/uL [facility] HGB 13.8 13.0 - 17.0 g/dL [facility] HCT 39.8(L) 40.0 - 51.0 % [facility] PLT 189 130 - 400 K/uL [facility] MCV 96.4 79.0 - 98.0 fL [facility] MCH 33.4 27.0 - 34.8 pg [facility] MCHC 34.7 31.5 - 36.0 g/dL [facility] RDW 13.0 10.8 - 14.6 % [facility] MPV 12.1 9.4 - 12.4 fl [facility] NRBC 0.00 0.00 /100 WBCs [facility] ABSOLUTE NRBC 0.00 0.00 K/uL [facility] Blood 09/30/2019 1:01 PM EST 09/30/2019 1:04 PM EST Result [facility] Laureen Alonzo MD LAB BLOOD ORDERABLES Final Re sult Performing Organization Address City/[facility]/ZIP Co de Phone Number [address] [address] * Parathyroid hormone (PTH) (09/30/2019 1:01 PM EST) PARATHYROID HORMONE 23 15 - 65 pg/mL [facility] Blood 09/30/2019 1:01 PM EST 09/30/2019 1:04 PM EST us Laureen Alonzo MD LAB BLOOD ORDERABLES Final Re sult Performing Organization Address [facility] Co de Phone Number [address] [address] * (ABNORMAL) Renal panel (09/30/2019 1:01 PM EST) SODIUM 138 133 - 146 mmol/L [facility] POTASSIUM 4.5 3.3 - 5.1 mmol/L [facility] CHLORIDE 100 96 - 108 mmol/L [facility] CO2 25 21 - 35 mmol/L [facility] GLUCOSE 154(H) 70 - 99 mg/dL [facility] BUN 19 6 - 19 mg/dL [facility] CREATININE 1.40 0.5 - 1.5 mg/dL [facility] CALCIUM 9.6 8.4 - 10.3 mg/dL [facility] PHOSPHORUS 2.9 2.7 - 4.5 mg/dL [facility] ALBUMIN 4.1 3.9 - 4.8 g/dL [facility] EGFR 50(L) >59 mL/min/1.7 2 [facility] Comment:If patient is black, multiply result by 1.159. Estimated glomerular filtration rate calculated using the CKD-EPI equation. ANION GAP 18 10 - 20 mmol/L [facility] Blood 09/30/2019 1:01 PM EST 09/30/2019 1:04 PM EST us Laureen Alonzo MD LAB BLOOD ORDERABLES Final Re sult Performing Organization Address City/[facility]/ZIP Co de Phone Number [address] [address] documented in this encounter Visit Diagnoses Diagnosis Hyperkalemia- Primary Hyperpotassemia Essential hypertension, malignant documented in this encounter Care Teams Spindle Carver Relationship Specialty Start Date End Date Susanna Solo DO [address] [place] [address] [email or web address] PCP - General Family Medicine 09/03/18 01/02/21 Abraham Stafford MD [address] [place] [address], [address] [place] [address] PCP - General Internal Medicine 01/03/21 01/03/21 Freddie Granados MD [address] [place] [address] [email or web address] PCP - General Internal Medicine 01/04/21 05/20/21 Abraham Stafford MD [address] [place] [address], [address] [address] PCP - General Internal Medicine 05/21/21 Susanna Solo DO [address] [place] [address] [email or web address] Insurance Assigned Provider 05/28/19 12/07/21 Chasidy Diop RN [address] [place] [address] [email or web address] iCMP Hr Recruiter 10/28/19 11/01/19 Abraham Stafford MD [address] [place] [address], [address] [address] Insurance Assigned Provider 12/05/23 documented as of this encounter Additional Source Comments The information contained in this document represents components of the legal health record. It is not the complete legal health record.[facility]
--- OUTSIDE RECORDS SUMMARY | 2025-05-08 16:44 | XMS_ITS | Encounter Summary ---
Author Organization [facility] Address [address] [place] [address] [place] [address] Phone Care Team Providers Care Front Desk Worker Name Role Phone Abraham Stafford MD Primary Care Provider [phone] Abraham Stafford MD Unavailable [phone] Encounter Details Date Type Department Care Team (Late Contact Info) Description 12/13/2021 Procedure Pass OR Admitting Dept - Virtual Department [address] [place] [address] Social History Tobacco Use Types Packs/Day Years Used Date Smoking Tobacco: Former Cigarettes 2 20 1 - 1984 Smokeless Tobacco: Never Alcohol Use Standard Drinks/Week Comments Yes 7 (1 standard drink = 0.6 oz pur [...] Info) Description 11/22/2024 Procedure Pass Echo Lab [facility] [address] [place] [address] 04/25/2025 Procedure Pass Non-[place] [address] 05/22/2025 10:30 AM EDT Appointment Echo Lab [place] [address] [place] [address] Claribel Kendall, DNP [address] [place] [address] 05/31/2025 9:20 AM EDT Office Visit [facility] [address] 3rd Floor, [address] [place] [address] Danish Grace MD [address] [place] [address], [address] [place] [address] 05/31/2025 9:30 AM EDT Appointment Non-Invasive Cardiology [address] [place] [address] [place] [address] Danish Grace MD [address] [place] [address], [address] [place] [address] 06/08/2025 10:00 AM EDT Office Visit [facility] [address] [place] [address] [place] [address] Abraham Stafford MD [address] [place] [address], [address] [place] [address] documented as of this encounter Visit Diagnoses Not on filedocumented in this encounter Additional Health Concerns Assessment Noted Time PHQ-2 Depression Total Score: 0 06/20/20 21 3:03 PM EDT documented as of this encounter Care Teams Front Desk Worker Relationship Specialty Start Date End Date Abraham Stafford MD [address] [place] [address], [address] [place] [address] PCP - General Internal Medicine 05/21/21 Abraham Stafford MD [address] [place] [address], [address] [place] [address] Insurance Assigned Provider 12/05/23 documented as of this encounter Additional Source Comments The information contained in this document represents components of the legal health record. It is not the complete legal health record.[facility]
--- OUTSIDE RECORDS SUMMARY | 2025-05-08 16:44 | XMS_ITS | Encounter Summary ---
Author Organization [facility] Address [address] [place] [address] [place] [address] Phone Care Team Providers Care Finishing Machine Tender Name Role Phone Susanna Solo Mary DO Unavailable [phone] Freddie Granados MD Primary Care Provider [phone] Abraham Stafford MD Primary Care Provider [phone] Abraham Stafford MD Unavailable [phone] Encounter Details Date Type Department Care Team (Late st Contact Info) Description 02/12/2021 Procedure Pass Non-Invasive Cardiology [address] [place] [address] Social History Tobacco Use Types Packs/Day Years [...] Info) Description 11/22/2024 Procedure Pass Echo Lab [place] [address] [place] [address] 04/25/2025 Procedure Pass Non-Invasive Cardiology [address] [place] [address] 05/22/2025 10:30 AM EDT Appointment Echo Lab [address] [place] [address] Claribel Kendall, DNP [address] [place] [address] 05/31/2025 9:20 AM EDT Office Visit [facility] [address] [place] [address] 3rd Floor, [address] [place] [address] Danish Grace MD [address] [place] [address], [address] [address] 05/31/2025 9:30 AM EDT Appointment Non-Invasive Cardiology [address] [place] [address] [place] [address] Danish Grace MD [address] [place] [address], [address] [address] 06/08/2025 10:00 AM EDT Office Visit [facility] [address] [place] [address] [place] [address] Abraham Stafford MD [address] [place] [address], [address] [place] [address] documented as of this encounter Visit Diagnoses Not on filedocumented in this encounter Additional Health Concerns Assessment Noted Time PHQ-2 Depression Total Score: 0 10/23/19 21 11:07 AM EST documented as of this encounter Care Teams Finishing Machine Tender Relationship Specialty Start Date End Date Freddie Granados MD [address] [place] [address], [address] [place] [address] PCP - General Internal Medicine 01/04/21 05/20/21 Abraham Stafford MD [address] [place] [address], [address] [place] [address] [email or web address] PCP - General Internal Medicine 05/21/21 Susanna Solo DO [address] [place] [address] [email or web address] Insurance Assigned Provider 05/28/19 12/07/21 Abraham Stafford MD [address] [place] [address], [address] [place] [address] [email or web address] Insurance Assigned Provider 12/05/23 documented as of this encounter Additional Source Comments The information contained in this document represents components of the legal health record. It is not the complete legal health record.[facility]
--- OUTSIDE RECORDS SUMMARY | 2025-05-08 16:44 | XMS_ITS | Encounter Summary ---
Author Organization [facility] Address [address] [facility] [address] [place] [address] Phone Care Team Providers Care Hydraulic Plumber Name Role Phone Bony Wang MD Primary Care Provide r Bony Wang MD Unavailable [phone] Susanna Solo DO Primary Care Provider [phone] Susanna Solo DO Unavailable [phone] Chasidy Diop RN Unavailable [email or web address] Abraham Stafford MD Primary Care Provider [phone] Freddie Granados MD Primary Care Provider [phone] Abraham Stafford MD Primary Care Provider [phone] Abraham Stafford MD Unavailable [phone] Encounter Details Date Type Department Care Team (Latest Contact Info) Description 11/10/2017 Transcribe Orders [facility] Specimen Processing [address] [place] [address] Kellee Hadley MD [address] [place], [place] [id number] Osteomyelitis, unspecified site, unspecified type (Primary Dx) [...] Info) Description 11/22/2024 Procedure Pass Echo Lab [address] [place] [address] 04/25/2025 Procedure Pass Non-Invasive Cardiology [address] [place] [address] [place] [address] 05/22/2025 10:30 AM EDT Appointment Echo Lab [address] [place] [address] Claribel Kendall, [address] [address] 05/31/2025 9:20 AM EDT Office Visit [facility] [address] [place] [address] 3rd Floor, [address] [place] [address] Danish Grace MD [address] [place] [address], [address] [address] 05/31/2025 9:30 AM EDT Appointment Non-Invasive Cardiology [address] [place] [address] [place] [address] Danish Grace MD [address] [place] [address], [address] [place] [address] 06/08/2025 10:00 AM EDT Office Visit [facility] [address] [place] [address] Abraham Stafford MD [address] [place] [address], [address] [place] [address] documented as of this encounter Results * Vancomycin, trough (11/10/2017 8:55 AM EDT) VANCOMYCIN,TROU GH 12.2 10.0 - 20.0 ug/mL [facility] Comment: Interpretation: Therapeutic Range: 10.0 - 20.0 ug/ml. Toxic: Greater than 30.0 ug/ml. Blood 11/10/2017 8:55 AM EDT 11/10/2017 9:32 AM EDT Kellee Hadley MD LAB BLOOD ORDERABLES Final Result [address] [address] * Sedimentation rate (ESR) (11/10/2017 8:55 AM EDT) ESR 16 0 - 20 mm/h [facility] Blood 11/10/2017 8:55 AM EDT 11/10/2017 9:32 AM EDT Kellee Hadley MD LAB BLOOD ORDERABLES Final Result Performing Organization Address [facility] de Phone Number [address] [address] * Creatinine/eGFR (11/10/2017 8:55 AM EDT) Pathologist [facility] CREATININE 1.10 0.5 - 1.5 mg/dL [facility] EGFR 68 >59 mL/min/1.7 3m2 [facility] Comment:If patient is black, multiply result by 1.159. The eGFR calculation has changed from the MDRD equation to the CKD-EPI equation as of November 03, 2017. Blood 11/10/2017 8:55 AM EDT 11/10/2017 9:32 AM EDT Kellee Hadley MD LAB BLOOD ORDERABLES Final Result Performing Organization Address [facility]/ZIP Co de Phone Number [address] [address] * BUN (11/10/2017 8:55 AM EDT) BUN 18 6 - 19 mg/dL [facility] Blood 11/10/2017 8:55 AM EDT 11/10/2017 9:32 AM EDT us Kellee Hadley MD LAB BLOOD ORDERABLES Final Result [facility] [address] [place] [address] * (ABNORMAL) CBC and differential (11/10/2017 8:55 AM EDT) WBC 6.06 3.40 - 11.20 K/uL [facility] RBC 4.34(L) 4.50 - 5.50 M/uL [facility] HGB 13.9 13.0 - 17.0 g/dL [facility] HCT 39.7(L) 40.0 - 51.0 % [facility] PLT 201 130 - 400 K/uL [facility] MCV 91.5 79.0 - 98.0 fL [facility] MCH 32.0 27.0 - 34.8 pg [facility] MCHC 35.0 31.5 - 36.0 g/dL [facility] RDW 13.7 10.8 - 14.6 % [facility] MPV 10.3 9.4 - 12.4 [facility] NRBC 0.00 /100 WBCs [facility] ABSOLUTE NRBC 0.00 K/uL [facility] DIFF METHOD Auto [facility] NEUTS 56.6 45.30 - 77.70 % [facility] LYMPHS 27.7 12.30 - 39.70 % [facility] MONOS 11.2 4.10 - 12.80 % [facility] EOS 3.0 0 - 7.2 % [facility] BASOS 1.2 0 - 2.80 % [facility] Granulocytes, immature (%) 0.3 0.0 - 0.9 % [facility] ABSOLUTE NEUTS 3.43 1.40 - 7.70 K/uL [facility] ABSOLUTE LYMPHS 1.68 0.60 - 3.20 K/uL [facility] ABSOLUTE MONOS 0.68(H) 0.11 - 0.59 K/uL [facility] ABSOLUTE EOS 0.18 0.01 - 0.50 K/uL [facility] ABSOLUTE BASOS 0.07 0.00 - 0.08 K/uL [facility] Granulocytes, immature 0.02 0.00 - 0.05 K/uL [facility] Blood 11/10/2017 8:55 AM EDT 11/10/2017 9:32 AM EDT us Kellee Hadley MD LAB BLOOD ORDERABLES Final Result Performing Organization Address [facility]/ZIP Co de Phone Number [address] [address] * (ABNORMAL) LFTs (hepatic panel) (11/10/2017 8:55 AM EDT) ALKALINE PHOSPHATASE 144(H) 39 - 117 U/L [facility] TOTAL BILIRUBIN 0.6 0.0 - 1.2 mg/dL [facility] DIRECT BILIRUBIN <0.2 0 - 0.3 mg/dL [facility] Bilirubin (Indirect) NOT CALCULATED 0 - 1.5 mg/dL [facility] AST 21 0 - 37 U/L [facility] ALT 22 0 - 40 U/L [facility] TOTAL PROTEIN 6.9 6.5 - 8.0 g/dL [facility] ALBUMIN 3.4(L) 3.9 - 4.8 g/dL [facility] GLOBULIN 3.5 1 - 4.8 g/dL [facility] A/G Ratio 0.97(L) 1.00 - 4.80 RATIO [facility] Blood 11/10/2017 8:55 AM EDT 11/10/2017 9:32 AM EDT us Kellee Hadley MD LAB BLOOD ORDERABLES Final Result Performing Organization Address [facility]/ZIP Co de Phone Number [address] [address] documented in this encounter Visit Diagnoses Diagnosis Osteomyelitis, unspecified site, unspecified type- Primary documented in this encounter Care Teams Hydraulic Plumber Relationship Specialty Start Date End Date Bony Wang MD [email or web address] PCP - General 06/18/17 09/02/18 Susanna Solo DO [address] [place] [address] [email or web address] PCP - General Family Medicine 09/03/18 01/02/21 Abraham Stafford MD [address] [place] [address], [address] [place] [address] [email or web address] PCP - General Internal Medicine 01/03/21 01/03/21 Freddie Granados MD [address] [place] [address], [address] [place] [address] [email or web address] PCP - General Internal Medicine 01/04/21 05/20/21 Abraham Stafford MD [address] [place] [address], [address] [place] [address] [email or web address] PCP - General Internal Medicine 05/21/21 Bony Wang MD [address] [place] [address] [address] [place] [address] [email or web address] Insurance Assigned Provider 11/28/17 05/28/19 Susanna Solo DO [address] [place] [address] [email or web address] Insurance Assigned Provider 05/28/19 12/07/21 Chasidy Diop RN [address] [place] [address] [email or web address] Fire Boat Engineer 10/28/19 11/01/19 Abraham Stafford MD [address] [place] [address], [address] [place] [address] [email or web address] Insurance Assigned Provider 12/05/23 documented as of this encounter Additional Source Comments The information contained in this document represents components of the legal health record. It is not the complete legal health record.[facility]
--- OUTSIDE RECORDS SUMMARY | 2025-05-08 16:44 | XMS_ITS | Encounter Summary ---
Author Organization [facility] Address [address] [facility] [address] [place] [address] Phone Care Team Providers Care Ice Guard Tester Name Role Phone Hudson Soloela Mary DO Unavailable [phone] Abraham Stafford MD Primary Care Provider [phone] Abraham Stafford MD Unavailable [phone] Encounter Details Date Type Department Care Team (Late st Contact Info) Description 10/14/2021 Procedure Pass Non-Invasive Cardiology [address] [place] [address] Social History Tobacco Use Types Packs/Day Years [...] Info) Description 11/22/2024 Procedure Pass Echo Lab [address] [address] 04/25/2025 Procedure Pass Non-Invasive Cardiology [address] [place] [address] 05/22/2025 10:30 AM EDT Appointment Echo Lab [address] [place] [address] Claribel Kendall, DNP [address] [place] [address] [email or web address] 05/31/2025 9:20 AM EDT Office Visit [facility] [address] [place] [address] 3rd Floor, [address] [place] [address] Danish Grace MD [address] [place] [address], [address] [place] [address] 05/31/2025 9:30 AM EDT Appointment Non-Invasive Cardiology [address] [place] [address] [place] [address] Danish Grace MD [address] [place] [address], [address] [address] [email or web address] 06/08/2025 10:00 AM EDT Office Visit [address] [place] [address] Abraham Stafford MD [address] [place] [address], [address] [place] [address] [email or web address] documented as of this encounter Visit Diagnoses Not on filedocumented in this encounter Additional Health Concerns Assessment Noted Time PHQ-2 Depression Total Score: 0 03/12/20 22 4:11 PM EDT documented as of this encounter Care Teams Ice Guard Tester Relationship Specialty Start Date End Date Abraham Stafford MD [address] [place] [address], [address] [place] [address] [email or web address] PCP - General Internal Medicine 05/21/21 Susanna Solo DO [address] [place] [address] [email or web address] Insurance Assigned Provider 05/28/19 12/07/21 Abraham Stafford MD [address] [place] [address], [address] [place] [address] [email or web address] Insurance Assigned Provider 12/05/23 documented as of this encounter Additional Source Comments The information contained in this document represents components of the legal health record. It is not the complete legal health record.[facility]
--- OUTSIDE RECORDS SUMMARY | 2025-05-08 16:44 | XMS_ITS | Encounter Summary ---
Author Organization [facility] Address [address] [facility] [address] [place] [address] Phone Care Team Providers Care Robotics Engineer Name Role Phone Bony Wang MD Primary Care Provide r Bony Wang MD Unavailable [phone] Susanna Solo DO Primary Care Provider + [phone] Susanna Solo DO Unavailable [phone] Chasidy Diop RN Unavailable [email or web address] Abraham Stafford MD Primary Care Provider [phone] Freddie Granados MD Primary Care Provider [phone] Abraham Stafford MD Primary Care Provider [phone] Abraham Stafford MD Unavailable [phone] Encounter Details Date Type Department Care Team (Latest Contact Info) Description 11/24/2017 Transcribe Orders [facility] Specimen Processing 30 [place] [address] Kellee Hadley MD [address] [place], [place] [id number] Osteomyelitis of right foot, unspecified type (Primary Dx) Social History Tobacco [...] Info) Description 11/22/2024 Procedure Pass Echo Lab [address] [place] [address] 04/25/2025 Procedure Pass Non-Invasive Cardiology [address] [place] [address] [place] [address] 05/22/2025 10:30 AM EDT Appointment Echo Lab [address] [place] [address] Claribel Kendall, [address] [address] 05/31/2025 9:20 AM EDT Office Visit [facility] [address] [place] [address] 3rd Floor, [address] [place] [address] Danish Grace MD [address] [place] [address], [address] [place] [address] 05/31/2025 9:30 AM EDT Appointment Non-Invasive Cardiology [address] [place] [address] [place] [address] Danish Grace MD [address] [place] [address], [address] [place] [address] 06/08/2025 10:00 AM EDT Office Visit [facility] [address] [place] [address] Abraham Stafford MD [address] [place] [address], [address] [place] [address] documented as of this encounter Results * Vancomycin, trough (11/24/2017 8:55 AM EDT) VANCOMYCIN,TROU GH 11.0 10.0 - 20.0 ug/mL [facility] Comment: Interpretation: Therapeutic Range: 10.0 - 20.0 ug/ml. Toxic: Greater than 30.0 ug/ml. Blood 11/24/2017 8:55 AM EDT 11/24/2017 9:46 AM EDT Kellee Hadley MD LAB BLOOD ORDERABLES Final Result Performing Organization Address City/[facility]/ZIP Co de Phone Number [address] [address] * (ABNORMAL) BUN (11/24/2017 8:55 AM EDT) Pathologist [facility] BUN 20(H) 6 - 19 mg/dL [facility] Blood 11/24/2017 8:55 AM EDT 11/24/2017 9:46 AM EDT Kellee Hadley MD LAB BLOOD ORDERABLES Final Result Performing Organization Address [facility] de Phone Number [address] [address] * Creatinine/eGFR (11/24/2017 8:55 AM EDT) Pathologist [facility] CREATININE 1.00 0.5 - 1.5 mg/dL [facility] EGFR 76 >59 mL/min/1.7 3m2 [facility] Comment:If patient is black, multiply result by 1.159. The eGFR calculation has changed from the MDRD equation to the CKD-EPI equation as of November 03, 2017. Blood 11/24/2017 8:55 AM EDT 11/24/2017 9:46 AM EDT Kellee Hadley MD LAB BLOOD ORDERABLES Final Result Performing Organization Address [facility] Co de Phone Number [address] [address] * Sedimentation rate (ESR) (11/24/2017 8:55 AM EDT) ESR 12 0 - 20 mm/h [facility] Blood 11/24/2017 8:55 AM EDT 11/24/2017 9:46 AM EDT us Kellee Hadley MD LAB BLOOD ORDERABLES Final Result [address] [address] * (ABNORMAL) CBC and differential (11/24/2017 8:55 AM EDT) WBC 6.15 3.40 - 11.20 K/uL [facility] RBC 4.62 4.50 - 5.50 M/uL [facility] HGB 14.6 13.0 - 17.0 g/dL [facility] HCT 42.7 40.0 - 51.0 % [facility] PLT 171 130 - 400 K/uL [facility] MCV 92.4 79.0 - 98.0 [facility] MCH 31.6 27.0 - 34.8 pg [facility] MCHC 34.2 31.5 - 36.0 g/dL [facility] RDW 13.6 10.8 - 14.6 % [facility] MPV 10.8 9.4 - 12.4 [facility] NRBC 0.00 /100 WBCs [facility] ABSOLUTE NRBC 0.00 K/uL [facility] DIFF METHOD Auto [facility] NEUTS 57.0 45.30 - 77.70 % [facility] LYMPHS 25.0 12.30 - 39.70 % [facility] MONOS 13.5(H) 4.10 - 12.80 % [facility] EOS 3.4 0 - 7.2 % [facility] BASOS 0.8 0 - 2.80 % [facility] Granulocytes, immature (%) 0.3 0.0 - 0.9 % [facility] ABSOLUTE NEUTS 3.50 1.40 - 7.70 K/uL [facility] ABSOLUTE LYMPHS 1.54 0.60 - 3.20 K/uL [facility] ABSOLUTE MONOS 0.83(H) 0.11 - 0.59 K/uL [facility] ABSOLUTE EOS 0.21 0.01 - 0.50 K/uL [facility] ABSOLUTE BASOS 0.05 0.00 - 0.08 K/uL [facility] Granulocytes, immature 0.02 0.00 - 0.05 K/uL [facility] Blood 11/24/2017 8:55 AM EDT 11/24/2017 9:46 AM EDT us Kellee Hadley MD LAB BLOOD ORDERABLES Final Result Performing Organization Address City/[facility]/ZIP Co de Phone Number [address] [address] * (ABNORMAL) LFTs (hepatic panel) (11/24/2017 8:55 AM EDT) ALKALINE PHOSPHATASE 146(H) 39 - 117 U/L [facility] TOTAL BILIRUBIN 0.8 0.0 - 1.2 mg/dL [facility] DIRECT BILIRUBIN <0.2 0 - 0.3 mg/dL [facility] Bilirubin (Indirect) NOT CALCULATED 0 - 1.5 mg/dL [facility] AST 23 0 - 37 U/L [facility] ALT 19 0 - 40 U/L [facility] TOTAL PROTEIN 7.0 6.5 - 8.0 g/dL [facility] ALBUMIN 3.8(L) 3.9 - 4.8 g/dL [facility] GLOBULIN 3.2 1 - 4.8 g/dL [facility] A/G Ratio 1.19 1.00 - 4.80 RATIO [facility] Blood 11/24/2017 8:55 AM EDT 11/24/2017 9:46 AM EDT us Kellee Hadley MD LAB BLOOD ORDERABLES Final Result [address] [address] documented in this encounter Visit Diagnoses Diagnosis Osteomyelitis of right foot, unspecified type- Primary documented in this encounter Care Teams Robotics Engineer Relationship Specialty Start Date End Date Bony Wang MD [email or web address] PCP - General 06/18/17 09/02/18 Susanna Solo DO [address] [place] [address] [email or web address] PCP - General Family Medicine 09/03/18 01/02/21 Abraham Stafford MD [address] [place] [address], [address] [place] [address] [email or web address] PCP - General Internal Medicine 01/03/21 01/03/21 Freddie Granados MD [address] [place] [address], [address] [place] [address] [email or web address] PCP - General Internal Medicine 01/04/21 05/20/21 Abraham Stafford MD [address] [place] [address], [address] [place] [address] [email or web address] PCP - General Internal Medicine 05/21/21 Bony Wang MD [address] [place] [address] Floor 1 [place] [address] [email or web address] Insurance Assigned Provider 11/28/17 05/28/19 Susanna Solo DO [address] [place] [address] [email or web address] Insurance Assigned Provider 05/28/19 12/07/21 Chasidy Diop RN [address] [place] [address] [email or web address] Human Resources Analyst 10/28/19 11/01/19 Abraham Stafford MD [address] [place] [address], [address] [place] [address] [email or web address] Insurance Assigned Provider 12/05/23 documented as of this encounter Additional Source Comments The information contained in this document represents components of the legal health record. It is not the complete legal health record.[facility]
--- OUTSIDE RECORDS SUMMARY | 2025-05-08 16:45 | XMS_ITS | Encounter Summary ---
Author Organization [facility] Address [address] [place] [address] [place] [address] Phone Care Team Providers Care Electric Meter Technician Name Role Phone Abraham Stafford MD Primary Care Provider [phone] Abraham Stafford MD Unavailable [phone] Encounter Details Date Type Department Care Team (Late st Contact Info) Description 01/15/2022 Procedure Pass Non-Invasive Cardiology [address] [place] [address] Social History Tobacco Use Types Packs/Day Years [...] Info) Description 11/22/2024 Procedure Pass Echo Lab [address] [address] 04/25/2025 Procedure Pass Non-Invasive Cardiology [address] [place] [address] 05/22/2025 10:30 AM EDT Appointment Echo Lab [address] [place] [address] Claribel Kendall, [address] [address] 05/31/2025 9:20 AM EDT Office Visit [facility] [address] Floor, [address] [place] [address] Danish Grace MD [address] [place] [address], [address] [place] [address] 05/31/2025 9:30 AM EDT Appointment Non-Invasive Cardiology [address] [place] [address] [place] [address] Danish Grace MD [address] [place] [address], [address] [address] 06/08/2025 10:00 AM EDT Office Visit [facility] [address] [place] [address] [place] [address] Abraham Stafford MD [address] [place] [address], [address] [place] [address] documented as of this encounter Visit Diagnoses Not on filedocumented in this encounter Additional Health Concerns Assessment Noted Time PHQ-2 Depression Total Score: 0 06/20/20 21 3:03 PM EDT documented as of this encounter Care Teams Electric Meter Technician Relationship Specialty Start Date End Date Abraham Stafford MD [address] [place] [address], [address] [place] [address] PCP - General Internal Medicine 05/21/21 Abraham Stafford MD [address] [place] [address], [address] [place] [address] Insurance Assigned Provider 12/05/23 documented as of this encounter Additional Source Comments The information contained in this document represents components of the legal health record. It is not the complete legal health record.[facility]
--- OUTSIDE RECORDS SUMMARY | 2025-05-08 16:45 | XMS_ITS | Encounter Summary ---
Author Organization [facility] Address [address] [facility] [address] [place] [address] Phone Care Team Providers Care Refrigeration Mechanic Helper Name Role Phone Abraham Stafford MD Primary Care Provider [phone] Abraham Stafford MD Unavailable [phone] Encounter Details Date Type Department Care Team (Late Contact Info) Description 05/12/2023 Procedure Pass Non-Invasive Cardiology [address] [place] [address] Social History Tobacco Use Types Packs/Day Years Used Date Smoking Tobacco: Former Cigarettes 2 20 1 - 1984 Smokeless Tobacco: Never Alcohol Use Standard Drinks/Week Comments Yes 21 (1 standard drink = 0.6 oz pu re alcohol) Education Answer Date Recorded Are you interested in more education? Not on ruben e 12/26/2022 Are you concerned about learning? Not on file 12/26/2022 No 12/26/2022 No 12/26/2022 Digital Access Answer Date Recorded No 01/21/2023 No 01/21/2023 Reliable internet access at home? Not on file 01/21/2023 Device with a working camera? Not on file Sex and Gender Information Value Date Recorded Sex Assigned at Male 09/07/2017 9:38 AM EST Legal Sex Male 10:06 PM EDT Gender Identity Male 09/07/2017 9:38 AM EST Sexual Orientation Straight 09/07/2017 9: 38 AM EST documented as of this encounter Plan of Treatment Upcoming Encounters Date Type Department Care Team (Late Contact Info) Description 11/22/2024 Procedure Pass Echo Lab [address] [place] [address] 04/25/2025 Procedure Pass Non-Invasive Cardiology [address] [place] [address] [place] [address] 05/22/2025 10:30 AM EDT Appointment Echo Lab [address] [place] [address] Claribel Kendall, [address] [address] 05/31/2025 9:20 AM EDT Office Visit [facility] [address] [place] [address] 3rd Floor, [address] [place] [address] Danish Grace MD [address] [place] [address], [address] [address] 05/31/2025 9:30 AM EDT Appointment Non-Invasive Cardiology [address] [place] [address] [place] [address] Danish Grace MD [address] [place] [address], [address] [place] [address] 06/08/2025 10:00 AM EDT Office Visit [facility] [address] [place] [address] [place] [address] Abraham Stafford MD [address] [place] [address], [address] [place] [address] documented as of this encounter Visit Diagnoses Not on filedocumented in this encounter Additional Health Concerns Assessment Noted Time PHQ-2 Depression Total Score: 0 03/13/20 23 4:56 PM EDT documented as of this encounter Care Teams Refrigeration Mechanic Helper Relationship Specialty Start Date End Date Abraham Stafford MD [address] [place] [address], [address] [place] [address] PCP - General Internal Medicine 05/21/21 Abraham Stafford MD [address] [place] [address], [address] [place] [address] [email or web address] Insurance Assigned Provider 12/05/23 documented as of this encounter Additional Source Comments The information contained in this document represents components of the legal health record. It is not the complete legal health record.[facility]
--- OUTSIDE RECORDS SUMMARY | 2025-05-08 16:45 | XMS_ITS | Encounter Summary ---
Author Organization [facility] Address [address] [place] [address] Phone Care Team Providers Care Position Description Manager Name Role Phone Abraham Stafford MD Primary Care Provider [phone] Abraham Stafford MD Unavailable [phone] Encounter Details Date Type Department Care Team (Late st Contact Info) Description 01/15/2022 Ancillary [facility] [address] [facility] 3rd Floor, [address] [place] [address] Danisha You MD [address] [place] [phone] [email or web address] Social History Tobacco Use Types Packs/Day [...] Info) Description 11/22/2024 Procedure Pass [facility] [address] [place] [id number] 04/25/2025 Procedure Pass Non-Invasive Cardiology [address] [place] [id number] 05/22/2025 10:30 AM EDT Appointment Echo Lab [address] [place] [address] Claribel Kendall, [address] [address] 05/31/2025 9:20 AM EDT Office Visit [facility] [address] [place] [address] 3rd Floor, [address] [place] [address] Danish Grace MD [address] [place] [address], [address] [place] [address] 05/31/2025 9:30 AM EDT Appointment Non-Invasive Cardiology [address] [place] [address] [place] [address] Danish Grace MD [address] [place] [address], [address] [address] 06/08/2025 10:00 AM EDT Office Visit [facility] [facility] [address] [place] [address] Abraham Stafford MD [address] [place] [address], [address] [place] [address] documented as of this encounter Visit Diagnoses Not on filedocumented in this encounter Additional Health Concerns Assessment Noted Time PHQ-2 Depression Total Score: 0 06/20/20 21 3:03 PM EDT documented as of this encounter Care Teams Position Description Manager Relationship Specialty Start Date End Date Abraham Stafford MD [address] [place] [address], [address] [place] [address] PCP - General Internal Medicine 05/21/21 Abraham Stafford MD [address] [place] [address], [address] [place] [address] [email or web address] Insurance Assigned Provider 12/05/23 documented as of this encounter Additional Source Comments The information contained in this document represents components of the legal health record. It is not the complete legal health record.[facility]
--- OUTSIDE RECORDS SUMMARY | 2025-05-08 16:45 | XMS_ITS | Encounter Summary ---
Author Organization [facility] Address [address] [place] [address] [place] [address] Phone Care Team Providers Care [employer] Clerk Name Role Phone Susanna Solo DO Primary Care Provider + [phone] Susanna Solo DO Unavailable [phone] Abraham Stafford MD Primary Care Provider [phone] Freddie Granados MD Primary Care Provider + [phone] Abraham Stafford MD Primary Care Provider [phone] Abraham Stafford MD Unavailable [phone] Encounter Details Date Type Department Care Team (Late st Contact Info) Description 07/10/2020 Procedure Pass Echo Lab [address] [place] [address] Social History Tobacco Use Types Packs/Day Years [...] Info) Description 11/22/2024 Procedure Pass Echo Lab [place] [address] [place] [address] 04/25/2025 Procedure Pass Non-Invasive Cardiology [address] [place] [address] [place] [address] 05/22/2025 10:30 AM EDT Appointment Echo Lab [address] [place] [address] Claribel Kendall, DNP [address] [place] [address] 05/31/2025 9:20 AM EDT Office Visit [facility] [address] [place] [address] 3rd Floor, [address] [place] [address] Danish Grace MD [address] [place] [address], [address] [place] [address] 05/31/2025 9:30 AM EDT Appointment Non-Invasive Cardiology [address] [place] [address] [place] [address] Danish Grace MD [address] [place] [address], [address] [place] [address] 06/08/2025 10:00 AM EDT Office Visit [address] [address] Abraham Stafford MD [address] [place] [address], [address] [place] [address] documented as of this encounter Visit Diagnoses Not on filedocumented in this encounter Care Teams [employer] Clerk Relationship Specialty Start Date End Date Susanna Solo DO [address] [place] [address] [email or web address] PCP - General Family Medicine 09/03/18 01/02/21 Abraham Stafford MD [address] [place] [address], [address] [place] [address] PCP - General Internal Medicine 01/03/21 01/03/21 Freddie Granados MD [address] [place] [address], [address] [place] [address] PCP - General Internal Medicine 01/04/21 05/20/21 Abraham Stafford MD [address] [place] [address], [address] [place] [address] PCP - General Internal Medicine 05/21/21 Susanna Solo DO [address] [place] [address] [email or web address] Insurance Assigned Provider 05/28/19 12/07/21 Abraham Stafford MD [address] [place] [address], [address] [place] [address] [email or web address] Insurance Assigned Provider 12/05/23 documented as of this encounter Additional Source Comments The information contained in this document represents components of the legal health record. It is not the complete legal health record.[facility]
--- OUTSIDE RECORDS SUMMARY | 2025-05-08 16:45 | XMS_ITS | Encounter Summary ---
Author Organization [facility] Address [address] [place] [address] Phone Care Team Providers Care Memorial Adviser Name Role Phone Susanna Solo DO Primary Care Provider Unava ilable Encounter Details Date Type Department Care Team (Late st Contact Info) Description 09/28/2019 Orders Only [facility] [address] [place] [place] [address] Laureen Alonzo MD Hyperkalemia; Hypertension Social History Tobacco Use Types Packs/Day Years Used Date Smoking Tobacco: Never Assessed Alcohol Use Standard Drinks/Week Comments Yes 0 (1 standard drink = 0.6 oz pur e alcohol) AUDIT-C Answer Date Recorded Frequency of Alcohol Consumption 4 or more times a week 09/07/2019 Average Number of Drinks Not on file 020 Frequency of Binge Drinking Not on file 03/2020 Sex and Gender Information Value Date Recorded Sex Assigned at Not on file Legal Sex Male 10:54 AM EST Gender Identity Not on file Sexual Orientation Not on file documented as of this encounter Plan of Treatment Not on file documented as of this encounter Visit Diagnoses Diagnosis Hyperkalemia Hypertension documented in this encounter Care Teams Memorial Adviser Relationship Specialty Start Date End Date Susanna Solo DO PCP - General Blender Laborer 09/07/19 documented as of this encounter
--- OUTSIDE RECORDS SUMMARY | 2025-05-08 16:45 | XMS_ITS | Encounter Summary ---
Author Organization [facility] Address [address] [facility] [address] [place] [address] Phone Care Team Providers Care Sorting Machine Operator Name Role Phone Abraham Stafford MD Primary Care Provider [phone] Abraham Stafford MD Unavailable [phone] Reason for Visit * Reason Comments Medication Refill Encounter Details Date Type Department Care Team (Late st Contact Info) Description 03/15/2025 Refill [facility] [address] [place] [address] [place] [address] Abraham Stafford MD [address] [facility], [address] [place] [address] [email or web address] Medication Refill Social History Tobacco Use Types Packs/Day Years Used Date Smoking Tobacco: Former Cigarettes 2 20 1 - 1984 Smokeless Tobacco: Never Alcohol Use Standard Drinks/Week Comments Yes 14 (1 standard drink = 0.6 oz pu re alcohol) Education Answer Date Recorded Are you interested in more education? Not on ruben e 12/26/2022 Are you concerned about learning? Not on file 12/26/2022 No 12/26/2022 No 12/26/2022 Digital Access Answer Date Recorded No 01/21/2023 No 01/21/2023 Reliable internet access at home? Not on file 01/21/2023 Device with a working camera? Not on file Intimate Partner Violence Answer Date R ecorded Denied Basic Needs Not on file 05/09/2024 In the past 12 months have y ou been in a relationship with a person who hurts, threatens, or tries to control you? No 05/09/2024 Worried food would run out Not on file 05/09 In the past 12 months have y ou been in a relationship with a person who hurts, threatens, or tries to control you? No 05/09/2024 Sex and Gender Information Value Date Recorded Sex Assigned at Male 09/07/2017 9:38 AM EST Legal Sex Male 10:06 PM EDT Gender Identity Male 09/07/2017 9:38 AM EST Sexual Orientation Straight 09/07/2017 9: 38 AM EST documented as of this encounter Progress Notes * Shantell Bergman - 03/15/2025 3:31 PM EDT Pt spouse called again said pt is out of medication, and would like it to be filled pradip, [facility] contact number [phone] contact and advise. Central Support [employer]ing Adviser (Please do not reply to this user; this inbox is not monitored.) Thank you. * Essie Thorpe - 03/15/2025 1:25 PM EDT Pt called advised pt has already missed 2 doses . Please fill PRADIP Central Support Lighting Adviser (Please do not reply to this user; this inbox is not monitored.) Thank you. * Tara Walters MA - 03/15/2025 10:32 AM EDT Images from the original note were not included. Rx Care Gap Status - Instructions for Clinical Staff (prescriber discretion applies): > Mismatch review guide > N/a - No action needed Visit Info Last visit: 05/13/2024 Abraham Stafford MD - Family Medicine [facility] > Requested f/u: Not specified Upcoming visit: 06/08/2025 Abraham Stafford MD - Family Medicine [facility] ACTIONS TAKEN BY Tara Walters MA - Criteria met. - Checked PDMP/[place]PAT. Non-Opioid Controlled Substance Without PDMP Rx Protocol - pregabalin Renewal is at prescriber discretion. Visit in the past 12 months: Yes documented in this encounter Plan of Treatment Upcoming Encounters Date Type Department Care Team (Late st Contact Info) Description 11/22/2024 Procedure Pass Echo [facility] [address] [place] [address] 04/25/2025 Procedure Pass Non-Invasive Cardiology [address] [place] [address] [place] [address] 05/22/2025 10:30 AM EDT Appointment Echo Lab [address] [place] [address] Claribel Kendall, [address] [address] 05/31/2025 9:20 AM EDT Office Visit [facility] [address] [place] [address] [address]rd Floor, [address] [place] [address] Danish Grace MD [address] [place] [address], [address] [place] [address] 05/31/2025 9:30 AM EDT Appointment Non-Invasive Cardiology [address] [place] [address] [place] [address] Danish Grace MD [address] [place] [address], [address] [place] [address] 06/08/2025 10:00 AM EDT Office [facility] [address] [place] [address] [place] [address] Abraham Stafford MD [address] [place] [address], [address] [place] [address] [email or web address] documented as of this encounter Visit Diagnoses Diagnosis Neuropathy Mononeuritis of unspecified site documented in this encounter Additional Health Concerns Assessment Noted Time PHQ-2 Depression Total Score: 0 05/09/20 24 1:07 PM EDT documented as of this encounter Care Teams Sorting Machine Operator Relationship Specialty Start Date End Date Abraham Stafford MD [address] [place] [address], [address] [place] [address] [email or web address] PCP - General Internal Medicine 05/21/21 Abraham Stafford MD [address] [place] [address], [address] [place] [address] [email or web address] Insurance Assigned Provider 12/05/23 documented as of this encounter Additional Source Comments The information contained in this document represents components of the legal health record. It is not the complete legal health record.[facility]
--- OUTSIDE RECORDS SUMMARY | 2025-05-08 16:45 | XMS_ITS | Encounter Summary ---
Author Organization [facility] Address [address] [facility] [address] [place] [address] Phone Care Team Providers Care Angle Shear Operator Name Role Phone Abraham Stafford MD Primary Care Provider [phone] Abraham Stafford MD Unavailable [phone] Encounter Details Date Type Department Care Team (Late Contact Info) Description 05/06/2023 Procedure Pass Non-Invasive Cardiology [address] [place] [address] Social History Tobacco Use Types Packs/Day Years [...] Info) Description 11/22/2024 Procedure Pass Echo Lab [address] [place] [address] 04/25/2025 Procedure Pass Non-Invasive Cardiology [address] [place] [address] [place] [address] 05/22/2025 10:30 AM EDT Appointment Echo Lab [address] [place] [address] Claribel Kendall, [address] [address] 05/31/2025 9:20 AM EDT Office Visit [facility] [address] [place] [address] [address]rd Floor, [address] [place] [address] Danish Grace MD [address] [place] [address], [address] [place] [address] [address] 05/31/2025 9:30 AM EDT Appointment Non-Invasive Cardiology [address] [place] [address] [place] [address] Danish Grace MD [address] [place] [address], [address] [place] [address] 06/08/2025 10:00 AM EDT Office Visit [facility] [address] [place] [address] [place] [address] Abraham Stafford MD [address] [place] [address], [address] [place] [address] documented as of this encounter Visit Diagnoses Not on filedocumented in this encounter Additional Health Concerns Assessment Noted Time PHQ-2 Depression Total Score: 0 03/13/20 23 4:56 PM EDT documented as of this encounter Care Teams Angle Shear Operator Relationship Specialty Start Date End Date Abraham Stafford MD [address] [place] [address], [address] [place] [address] [email or web address] PCP - General Internal Medicine 05/21/21 Abraham Stafford MD [address] [place] [address], [address] [place] [address] [email or web address] Insurance Assigned Provider 12/05/23 documented as of this encounter Additional Source Comments The information contained in this document represents components of the legal health record. It is not the complete legal health record.[facility]
--- OUTSIDE RECORDS SUMMARY | 2025-05-08 16:45 | XMS_ITS | Encounter Summary ---
Author Organization [facility] Address [address] [facility] [address] [place] [address] Phone Care Team Providers Care Crop Setting Out Machine Operator Name Role Phone Edil Susanna Mary DO Unavailable [phone] Abraham Stafford MD Primary Care Provider [phone] Abraham Stafford MD Unavailable [phone] Encounter Details Date Type Department Care Team (Late st Contact Info) Description 11/05/2021 Procedure Pass Echo [facility] [address] [place] [address] Social History Tobacco Use Types Packs/Day Years [...] Info) Description 11/22/2024 Procedure Pass Echo Lab [address] [place] [address] 04/25/2025 Procedure Pass Non-Invasive Cardiology [address] [place] [address] [place] [address] 05/22/2025 10:30 AM EDT Appointment Echo Lab [address] [place] [address] Claribel Kendall, DNP [address] [place] [address] [email or web address] 05/31/2025 9:20 AM EDT Office Visit [facility] [address] [place] [address] [address]rd Floor, [address] [place] [address] Danish Grace MD [address] [place] [address], [address] [place] [address] 05/31/2025 9:30 AM EDT Appointment Non-Invasive Cardiology [address] [place] [address] [place] [address] Danish Grace MD [address] [place] [address], [address] [address] [email or web address] 06/08/2025 10:00 AM EDT Office Visit [address] [place] [address] Abraham Stafford MD [address] [place] [address], [address] [place] [address] [email or web address] documented as of this encounter Visit Diagnoses Not on filedocumented in this encounter Additional Health Concerns Assessment Noted Time PHQ-2 Depression Total Score: 0 06/20/20 3:03 PM EDT documented as of this encounter Care Teams Crop Setting Out Machine Operator Relationship Specialty Start Date End Date Abraham Stafford MD [address] [place] [address], [address] [place] [address] [email or web address] PCP - General Internal Medicine 05/21/21 Susanna Solo DO [address] [place] [address] [email or web address] Insurance Assigned Provider 05/28/19 12/07/21 Abraham Stafford MD [address] [place] [address], [address] [place] [address] [email or web address] Insurance Assigned Provider 12/05/23 documented as of this encounter Additional Source Comments The information contained in this document represents components of the legal health record. It is not the complete legal health record.[facility]
--- OUTSIDE RECORDS SUMMARY | 2025-05-08 16:45 | XMS_ITS | Encounter Summary ---
Author Organization [facility] Address [address] [facility] [address] [place] [address] Phone Care Team Providers Care Telepathist Name Role Phone Abraham Stafford MD Primary Care Provider [phone] Abraham Stafford MD Unavailable [phone] Encounter Details Date Type Department Care Team (Late Contact Info) Description 08/17/2023 Procedure Pass Non-Invasive Cardiology [address] [place] [address] Social History Tobacco Use Types Packs/Day Years [...] Info) Description 11/22/2024 Procedure Pass Echo Lab [address] [place] [address] 04/25/2025 Procedure Pass Non-Invasive Cardiology [address] [place] [address] [place] [address] 05/22/2025 10:30 AM EDT Appointment Echo Lab [address] [place] [address] Claribel Kendall, [address] [address] 05/31/2025 9:20 AM EDT Office Visit [facility] [address] [place] [address] [address] Floor, [address] [place] [address] Danish Grace MD [address] [place] [address], [address] [address] 05/31/2025 9:30 AM EDT Appointment Non-Invasive Cardiology [address] [place] [address] [place] [address] Danish Grace MD [address] [place] [address], [address] [place] [address] 06/08/2025 10:00 AM EDT Office Visit [facility] [address] [place] [address] [place] [address] Abraham Stafford MD [address] [place] [address], [address] [place] [address] documented as of this encounter Visit Diagnoses Not on filedocumented in this encounter Additional Health Concerns Assessment Noted Time PHQ-2 Depression Total Score: 0 05/09/20 24 1:07 PM EDT documented as of this encounter Care Teams Telepathist Relationship Specialty Start Date End Date Abraham Stafford MD [address] [place] [address], [address] [place] [address] PCP - General Internal Medicine 05/21/21 Abraham Stafford MD [address] [place] [address], [address] [place] [address] [email or web address] Insurance Assigned Provider 12/05/23 documented as of this encounter Additional Source Comments The information contained in this document represents components of the legal health record. It is not the complete legal health record.[facility]
--- OUTSIDE RECORDS SUMMARY | 2025-05-08 16:45 | XMS_ITS | Clinical Summary ---
Author Organization [facility] Address [address] [facility] [address] [place] [address] Phone Care Team Providers Care Vat Washer Name Role Phone Sheila Stafford MD Primary Care Provider [phone] Sheila Stafford MD Unavailable [phone] Allergies No known active allergies Medications aspirin 81 mg chewable tablet Take 81 mg by mouth daily. Active cyanocobalamin, vitamin B-12, 1000 MCG tablet Take 1,000 mcg by mouth daily. Active allopurinol (ZYLOPRIM) 100 MG tabletIndication s:Hyperuricemia take 2 tablets by mouth every day 180 tablet 3 06/02/20 24 Active ELIQUIS 5 mg tabletIndication s:Paroxysmal atrial fibrillation take 1 tablet by mouth twice a day 180 tablet 3 06/02/20 24 Active atorvastatin (LIPITOR) 80 MG tabletIndication s:Hypertension TAKE 1 TABLET BY MOUTH EVERY DAY 90 tablet 3 10/28/19 25 Active metoprolol succinate (TOPROL-XL) 25 MG 24 hr tabletIndication s:Hypertension,M edication refill TAKE 1 TABLET (25 MG TOTAL) BY MOUTH DAILY. 90 tablet 3 10/28/19 25 Active pregabalin (LYRICA) 150 MG capsuleIndicatio ns:Neuropathy Take 1 capsule (150 mg total) by mouth 3 (three) times a day. 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 CAD status post single-vessel CABG (VERMA-LAD) with residual 80% in the RCA. Patient will continue on aspirin 81 mg daily and atorvastatin 80 mg daily. Most recent LDL 54. Neuropathy of right lower extremity 05/13/2024 Overview (05/13/2024): For many years, unclear whether dt PVD or his DM2 Has been on lyrica for many years [rx'd by prev PCP] Uncomplicated alcohol dependence 03/17/2023 Overview (03/17/2023): Has had a pattern of increasing alcohol use which is causing stress at home. We had a long and somewhat difficult conversation about the stress that is introduced into his marriage. He has increased his vodka intake to 4 drinks a night. We discussed that he and his can come to an agreement where he can have 1 measured vodka drink 6 nights a week, and she will help him with his AFO and hearing aids. I recommended they consider couples counseling. Follow-up 3 months History of colonic polyps 03/13/2022 Overview (03/13/2022): February 2022, path pending Acute idiopathic gout of left hand 12/25/2020 Assessment & Plan (02/04/2021 1:41 PM EDT): Continue Uloric 40 mg PO daily. Continue Colchicine 0.6 mg every other day due to kidney function concern. Assessment & Plan (12/25/2020 10:47 AM EDT): Trial of Uloric 40 mg Take one pill PO daily. Patient has elevated kidney functions, so will not use Allopurinol. Trial of Colchicine 0.6 mg Take one pill PO every other day due to decreased kidney functions. Primary osteoarthritis of both hands 12/25/2020 Assessment & Plan (02/04/2021 1:42 PM EDT): Patient can try Tylenol Arthritis. Take one pill PO every 8 hours as needed for OA pain relief. Assessment & Plan (12/25/2020 10:50 AM EDT): Patient is taking lyrica 150 mg TID for neuropathy, and medication is also helping with hand pain. Discussed he can use Tylenol Arthritis for additional hand pain relief as needed. Sick sinus syndrome 12/01/2019 Assessment & Plan (11/22/2024 11:18 AM EDT): Status post dual-chamber pacemaker. Pacemaker 12/01/2019 Assessment & Plan (04/15/2021 12:46 PM EDT): PPM has been working well. Continue q3 month remote monitoring. Given patient is closely following with Dr. Grace, will have PPM interrogated in person on 10/14/2020 at his next visit and he can f/u with me as needed if issues arise Assessment & Plan (04/16/2020 10:43 AM EDT): Patient's PPM is working appropriately, q3 month remote transmission Assessment & Plan (12/01/2019 11:53 AM EDT): Dual-chamber Biotronik pacemaker for sick sinus syndrome which is working appropriately. He is monitored remotely. Incision has healed well. Hypertension 08/16/2019 Assessment & Plan (11/22/2024 11:17 AM EDT): Blood pressure very well-controlled today 112/76. Patient educated on HTN pathophysiology, htn medication, importance of low salt DASH heart healthy diet, exercise and home B/P monitoring. Advised if home blood pressure readings are higher than 130/80 to call the office. Patient will continue on metoprolol succinate 25 mg daily. 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 Most recent remote interrogation on 07/2024-Presenting EGM As/Ap - Trust Vault Clerk. Battery status is OK. Measured values in normal range. Since last transmission, no new episodes. 0% AT/AF [place]. Last in person interrogation done on 05/2024. See roses report for full details. We will continue with remote interrogations every 3 months and in person interrogations every year. Patient will continue on Eliquis 5 mg twice daily and metoprolol succinate 25 mg daily. Assessment & Plan (02/04/2021 1:39 PM EDT): Patient will continue to follow with Cardiology for monitoring and therapy. He is on Eliquis therapy. Assessment & Plan (12/25/2020 10:49 AM EDT): Patient on Eliquis therapy. Follow with Healthcare Representative. Assessment & Plan (12/01/2019 11:52 AM EDT): Paroxysmal atrial fibrillation with sick sinus syndrome and tachybradycardia syndrome. He has dual-chamber pacemaker. We will start him on Toprol-XL 25 mg once a day and keep an eye on his arrhythmia burden. He is anticoagulated with Eliquis without any problems with bleeding or such. Hyperuricemia 10/02/2017 Assessment & Plan (10/03/2021 10:03 AM EST): Hx of hyperuricemia and intermittent joint flares treated with Uloric 40 mg since 11/2020 He denies any flares of red warm swollen joints Although his gout was not crystal proven , it would be appropriate to tx empirically given hx of flares Post marketing studies has shown a higher rate of CV fatal outcomes in patients with gout and established CV disease treated with Uloric when compared to those treated with Allopurinol. Given this patients significant CV disease , I Changed treatment from Uloric to Allopurinol Tolerating 100 mg q day. Dose will be titrated to reach a uric acid of <5.5 Cocrys will be d/c] Labs today CMP , uric acid He will follow up ijn 6 months Call prn for any questions, concerns or flare, He understands there is a small risk of flare stopping Colcrys Assessment & Plan (07/19/2021 11:07 AM EST): Hx of hyperuricemia and intermittent joint flares treated with Uloric 40 mg since 11/2020 Dose was lowered to 5 days weekly since 03/2021 due to elevation Alk Phos. He denies any flares of red warm swollen joints Although his gout was not crystal proven , it would be appropriate to tx empirically given hx of flares Post marketing studies has shown a higher rate of CV fatal outcomes in patients with gout and established CV disease treated with Uloric When compared to those treated with Allopurinol. Given this patients significant CV disease , I am going to change treatment from Uloric to Allopurinol Will start with 100 mg q day. Dose will be titrated to reach a uric acid of <5.5 For now we will continue Cocry, but reduce dose to 0.6 mg QOD. Next visit , hopefully d/c Start allopurinol 100mg daily- discussed side effects including rash, diarrhea, nausea, liver dysfunction, pruritis. -Discussed in detail the risk for further gout flares during allopurinol initiation and need to maintain on standing prophylaxis for gout flare while on allopurinol until goal uric acid level is reached. - Repeat monitoring labs in 2 weeks and will titrate allopurinol dose at that time to reach goal uric acid of <5.5 - Patient aware to call clinic for any new flares or rash Today CMP and Uric acid Assessment & Plan (02/04/2021 1:39 PM EDT): Continue Uloric 40 mg PO daily. Assessment & Plan (12/25/2020 10:48 AM EDT): Trial of Uloric 40 mg Take one pill PO daily. Patient has elevated kidney functions, so will not use Allopurinol. Trial of Colchicine 0.6 mg Take one pill PO every other day due to decreased kidney functions. Will get lab for Uric acid level. Osteoarthritis of left knee 08/10/2017 PVD (peripheral vascular disease) 07/29/2017 Overview (06/21/2021): Sees Dr Phelps at 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 Carpal tunnel syndrome 07/15/2017 Hypertriglyceridemia 07/15/2017 Type 2 diabetes mellitus wit h neurologic complication, without long-term current use of insulin 07/15/2017 Aortic regurgitation 07/02/2017 Assessment & Plan (11/22/2024 11:20 AM EDT): Patient asymptomatic. Most recent echo 2021 showed mild to moderate aortic regurg. We will get an updated echo before patient's next follow-up here. B12 deficiency 07/02/2017 Bilateral carpal tunnel syndrome 07/02/2017 Hyperlipidemia 07/02/2017 Controlled type 2 diabetes m ellitus with foot ulcer, without long-term current use of insulin 07/02/2017 Atrial flutter 07/02/2017 Assessment & Plan (04/15/2021 12:45 PM EDT): Continue eliquis and metoprolol Encounter for preoperative s creening laboratory testing for COVID-19 virus Encounters Date Type Department Care Team Description 04/26/2025 Refill [facility] [address] [place] [address] Sheila Stafford MD Medication Refill 04/25/2025 Orders Only [facility] [address], [address] [place] [address] Danish Grace MD Sick sinus syndrome (Primary Dx) 04/04/2025 Telephone [facility] [address], [address] [place] [address] Danish Grace MD 04/03/2025 Orders Only [facility] [address] [place] [address] Provider, MD Bobby 03/24/2025 Orders Only [facility] [address], [address] [place] [address] Provider, MD Bobby 03/15/2025 Refill [facility] [address] [place] [address] Sheila Stafford MD Medication Refill from Last 3 Months Immunizations Immunization Administration Dates Next Due COVID-19 (Pre-06/22) Pfizer Vaccine, mRNA, PF 11/22/2020,10/30/2020 COVID-19 Moderna Spikevax Vaccine 12+ 05/20/2024 ,06/23/2023 DTaP, unspecified formulation 08/11/2013 INFLUENZA, SPLIT VIRUS, TRIV ALENT W/ PRESERVATIVE IM 05/01/2017,06/14/2014 Influenza High-Dose Quadriva lent Preservative Free IM 06/23/2023,06/07/2022,05/25/2021,05/18 Influenza High-Dose Trivalen t Preservative Free IM 05/18/2020,06/23/2019,06/24/2018,05/26 Influenza Recombinant Trival ent Preservative Free IM 06/30/2024 Influenza Trivalent Adjuvant ed Preservative free IM 06/23/2019 Influenza, Unspecified Formulation 09/29,07/10/2015,06/16/2014,08/11,09/06/2012 Pneumococcal conjugate PCV13 08/10/2015 Pneumococcal conjugate PCV20 06/07/2022 Pneumococcal polysaccharide PPSV23 06/21/2021 Pneumococcal, Unspecified Formulation 08/11/2013 RSV Vaccine (monovalent, adjuvanted) 11/09/2024 Td (adult),2 Lf Tetanus Toxo id, PF, Adsorbed 06/21/2021 Zoster live 08/10/2015 Zoster recombinant 10/07/2021,08/06/2021 Family History Medical History Relation Comments CV disease Father 2 Diabetes mellitus Mother 2 Relation Status Comments Father 1 Father 2 Mother 1 Mother 2 Social History Tobacco Use Types Packs/Day Years Used Date Smoking Tobacco: Former Cigarettes 2 20 1 - 1984 Smokeless Tobacco: Never Tobacco Cessation:Counseling Given: Not Answered Alcohol Use Standard Drinks/Week Comments Yes 14 [...] Orientation Straight 09/07/2017 9: 38 AM EST Last Filed Vital Signs Vital Sign Reading Time Taken Comments Blood Pressure 112/76 11/22/2024 10:56 AM EDT Pulse 79 11/22/2024 10:56 AM EDT Temperature 36.7 C (98 F) 05/13/2024 1:15 PM EDT Respiratory Rate 18 05/13/2024 1:15 PM EDT Oxygen Saturation 98% 11/22/2024 10:56 AM EDT Inhaled Oxygen Concentration - - Weight 91.6 kg (202 lb) 11/22/2024 10:56 AM EDT Height 172.7 cm (5' 8 ) 11/22/2024 10:56 AM EDT Body Mass Index 30.71 11/22/2024 10:56 AM EDT Plan of Treatment Upcoming Encounters Date Type Department Care Team (Late st Contact Info) Description 11/22/2024 Procedure Pass Echo Lab [address] [address] 04/25/2025 Procedure Pass Non-Invasive Cardiology [address] [place] [address] [place] [address] 05/22/2025 10:30 AM EDT Appointment [place] [address] Claribel Kendall, [address] [address] 05/31/2025 9:20 AM EDT Office Visit [facility] [address], [address] [place] [address] Danish Grace MD [address] [place] [address] 05/31/2025 9:30 AM EDT Appointment [place] [address] Danish Grace MD [address] [place] [address], [address] [address] 06/08/2025 10:00 AM EDT Office Visit [facility] [address] [place] [address] Sheila Stafford MD [address] [facility] [place] [address] [email or web address] Health Maintenance Due Date Last Done Comments COLOGUARD 11/17/1992 FIT TEST 11/17/1992 FOBT 11/17/1992 SIGMOIDOSCOPY 11/17/1992 VIRTUAL COLONOSCOPY 11/17/1992 HEMOGLOBIN A1C 11/10/2024 05/13/2024, 03/01, 03/17/2023, Additional history exists URINE MICROALBUMIN/CREATININE RATIO 03/23/2025 03/23/2024, 12/22/2022, 12/22/2022, Additional history exists INFLUENZA VACCINE (#1) 2025 , 06/30/2024, 06/23/2023, Additional history exists COVID-19 VACCINE ( season) 2025 05/20/2024, 06/23/2023, 07/03/2022, Additional history exists DEPRESSION SCREENING 05/09/2025 05/09/2024 CREATININE LEVEL 05/13/2025 05/13/2024, , 12/22/2022, Additional history exists BLOOD PRESSURE 05/25/2025 11/22/2024 DIABETIC EYE EXAM 03/15/2026 03/15/2025, , 08/20/2023, Additional history exists COLONOSCOPY 03/11/2027 03/11/2022, 02/2019, 06/08/2015 COLORECTAL CANCER SCREENING 03/11/2027 Adult Td,Tdap Booster 06/21/2031 06/21/2021 HEPATITIS C SCREENING Completed 05/23/2021, 021 ZOSTER VACCINES Completed 10/07/2021, 02/2021, 08/10/2015 PNEUMOCOCCAL VACCINES (50+ years) Completed 06/07/2022, 06/21/2021, 08/10/2015 RSV VACCINE Completed 11/09/2024 SMOKING STATUS SCREENING (Once After 26 Yrs) Completed 11/22/2024 HEPATITIS A VACCINES Aged Out No long er eligible based on patient's age to complete this topic HIB VACCINES Aged Out No longer eligi ble based on patient's age to complete this topic MENINGOCOCCAL VACCINES (ACWY) Aged Out No longer eligible based on patient's age to complete this topic MENINGOCOCCAL VACCINES (B) Aged Out N o longer eligible based on patient's age to complete this topic Medical Devices Implanted Type Area Sole Dyer Device Identifier Shelf Expiration Date Model / Serial / Lot Pacemaker Pacemaker Chest Wire Wire Sternum Description:cabg Clip Hemostasis 360deg 235cm Resolution 360 Latex Free 2.8mm Channel Bx/20ea - [id number] Implanted:Qty: 1 on 03/11/2022 by Blanco Peña MD at [facility] [id number] / / Description:Ileal cecal poly pectomy site Procedures Procedure Name Priority Date/Time Associated Diagnosis Comments DIABETES EYE EXAM FOR RESULT ENTRY ONLY Routine 03/15/2025 5:16 PM EDT OUTSIDE EP STUDY Routine 02/13/2025 1:49 PM EDT HEMOGLOBIN A1C Routine 05/13/2024 2:07 PM EDT 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, without long-term current use of insulin BASIC METABOLIC PANEL Routine 05/13/2024 2:07 PM EDT Medicare annual wellness visit, subsequent MICROALBUMIN/CREATIN INE RATIO, RANDOM URINE Routine 03/23/2024 10:09 AM EDT 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, without long-term current use of insulin ENDOSCOPY, COLON 03/11/2022 8:45 AM EDT HEPATITIS C ANTIBODY, QUALITATIVE Routine 05/23/2021 11:16 AM EDT Need for hepatitis C screening test from Last 3 Months or Most Recently Relevant to Health Maintenance Results * DIABETES EYE EXAM FOR RESULT ENTRY ONLY (03/15/2025 5:16 PM EDT) us Historical Provider HEALTH MAINTENANCE Edited Result - Final * Outside EP Study Report Only (02/13/2025 1:49 PM EDT) us Historical Provider MD MENDEZ MABRY Final Result * (ABNORMAL) Hemoglobin A1c (05/13/2024 2:07 PM EDT) HEMOGLOBIN A1C 6.4(H) 4.3 - 5.8 % [facility] Blood 05/13/2024 2:07 PM EDT 05/13/2024 2:14 PM EDT us Sheila Stafford MD LAB BLOOD ORDERABLES Final Resu lt Performing Organization Address [facility]/ZIP Co de Phone Number [address] [address] * (ABNORMAL) Basic metabolic panel (05/13/2024 2:07 PM EDT) SODIUM 141 133 - 146 mmol/L [facility] CHLORIDE 103 96 - 108 mmol/L [facility] POTASSIUM 4.9 3.3 - 5.1 mmol/L [facility] CO2 27 21 - 35 mmol/L [facility] BUN 26(H) 6 - 19 mg/dL [facility] CREATININE 1.20 0.5 - 1.5 mg/dL [facility] GLUCOSE 134(H) 70 - 99 mg/dL [facility] CALCIUM 9.3 8.4 - 10.3 mg/dL [facility] EGFR 63 >59 mL/min/1.7 3m2 [facility] Comment:Estimated glomerular filtration rate calculated using the CKD-EPI refit equation. ANION GAP 16 10 - 20 mmol/L [facility] Blood 05/13/2024 2:07 PM EDT 05/13/2024 2:14 PM EDT us Sheila Stafford MD LAB BLOOD ORDERABLES Final Resu lt Performing Organization Address City/[facility]/ZIP Co de Phone Number [address] [address] * Microalbumin/creatinine ratio, random urine (03/23/2024 10:09 AM EDT) URINE MICROALBUMIN 1.3 0 - 2.3 mg/dL [facility] URINE CREATININE 123 mg/dL [facility] MICROALB/CRE RATIO 10.6 0 - 20 mg/g Cre [facility] Urine (Urine) 03/23/2024 10: 09 AM EDT 03/23/2024 10:11 AM EDT us Sheila Stafford MD URINE ORDERABLES Final Result [facility] [address] [place], [place] [id number] * ENDOSCOPY, COLON (03/11/2022 8:45 AM EDT) Narrative Transcriptions Blanco Peña MD - 03/11/2022 8:45 AM EDT Patient Name: Jorden Hale Attending MD:: BLANCO PEÑA MD Procedure Date: 03/11/2022 8:45 AM Date of : 1945 Age: 76 Admit Type: Outpatient Gender: Male Room: [place] [address] Referring MD: SHEILA STAFFORD Exam Type: Colonoscopy Indications: High risk colon cancer surveillance: Personalhistory of colonic polyps, Last colonoscopy: August 2018 Medications: Propofol per Anesthesia Procedure: Informed consent was obtained from the patientafter discussion of the indications, limitations, alternatives, benefits, and risks of the procedure. Risks specifically discussed include but are not limited to medication reactions, missed lesions, bleeding, perforation, or the need for emergent surgery. Throughout the procedure, the patient's blood pressure, pulse, end-tidal CO2, and oxygensaturations were monitored continuously. The Olympus adult variable colonoscope [id number] #2 was introduced through the anus and advanced to the terminal ileum, with identification of theappendiceal orifice and IC valve. The terminal ileum, ileocecal valve, appendiceal orifice, and rectum were photographed. The colonoscopy was performed without difficulty. The patient tolerated the procedurewell. The quality of the bowel preparation was good. The bowel preparation used was PEG in Gatoraide viasplit dose instruction. Complications: No immediate complications. Estimated blood loss:None. Findings: The perianal and digital rectal examinations were normal. Pertinent negatives include normal prostate (size, shape, and consistency). The retroflexed view of the distal rectum and anal verge was normal and showed no anal or rectal abnormalities. Many medium-mouthed diverticula were found in the sigmoid colon and ascending colon.Right more thanLeft colon A small polyp was found in the hepatic flexure. The polyp was sessile. The polyp was removed with acold snare. Resection and retrieval were complete. A 10 mm polyp was found in the ileocecal valve. The polyp was sessile. The polyp was removed with a hot snare. Resection and retrieval were complete. To prevent bleeding after the polypectomy, onehemostatic clip was successfully placed (MR conditional).There was no bleeding during, or at the end, of the procedure. The terminal ileum appeared normal. Retroflexion in the right colon was performed. Impression: - The distal rectum and anal verge are normal on retroflexion view. - Diverticulosis in the sigmoid colon and in the ascending colon. - One small polyp at the hepatic flexure, removedwith a cold snare. Resected and retrieved. - One 10 mm polyp at the ileocecal valve, removedwith a hot snare. Resected and retrieved. Clip (MR conditional) was placed. - The examined portion of the ileum was normal. Recommendation: - No ibuprofen, naproxen, or other non-steroidal anti-inflammatory drugs for 2 weeks after polyp removal. - Because metallic clips were placed, you shouldnot have any elective MRI exams for 4 weeks. - Resume Eliquis (apixaban) at prior dose today. - Repeat colonoscopy in 3 years for surveillance. BLANCO PEÑA MD 03/11/2022 9:19:15 AM This report has been signed electronically. Number of Addenda: 0 Note Initiated On: 03/11/2022 8:45 AM Procedure Code(s): --- Professional --- 35643, Colonoscopy, flexible; with removal of tumor(s), polyp(s), or other lesion(s) by snare technique --- Technical --- 14882, Colonoscopy, flexible; with removal of tumor(s), polyp(s), or other lesion(s) by snare technique Diagnosis Code(s): --- Professional --- Z86.010, Personal history of colonic polyps K63.5, Polyp of colon K57.30, Diverticulosis of large intestine without perforation or abscess without bleeding --- Technical --- Z86.010, Personal history of colonic polyps K63.5, Polyp of colon K57.30, Diverticulosis of large intestine without perforation or abscess without bleeding CPT copyright 2020 [employer]. All rights reserved. The codes documented in this report are preliminary and upon document management specialist reviewmay be revised to meet current compliance requirements. Procedure Date: 03/11/2022 8:45:[address] [place] [id number] us Sheila Stafford MD GI PROCEDURE ORDERABLES Final R esult * Hepatitis C antibody, qualitative (05/23/2021 11:16 AM EDT) HCV NON-REACTIV E NON-REACTI VE [facility] Blood 05/23/2021 11:1 6 AM EDT 05/23/2021 11:19 AM EDT us Jose Fowler MD LAB BLOOD ORDERABLES Final Result [facility] [address] [place] [address] from Last 3 Months or Most Recently Relevant to Health Maintenance Insurance MEDICARE PART A & B [facility] [employer] MEDICARE SUPPLEMENT MEDICARE PART A & B [facility] [employer] MEDICARE SUPPLEMENT MEDICARE PART A & B [facility] [employer] MEDICARE SUPPLEMENT MEDICARE PART A & B [employer] MEDICARE SUPPLEMENT MEDICARE PART A & B [employer] MEDICARE SUPPLEMENT MEDICARE PART A & B Member Subscriber Plan / Payer (Ef fective 2012-Present) Name:Jorden Hale Member ID:[id number] Relation to Subscriber:Self Name:Jorden Hale Subscriber ID:[id number] Payer ID:[id number] Group ID:Not on file Type:Medicare Address: [employer] [facility] [address] [place] [phone] [facility] MEDICARE SUPPLEMENT MEDICARE PART A & B [facility] MEDICARE SUPPLEMENT MEDICARE PART A & B [facility] MEDICARE SUPPLEMENT MEDICARE PART A & B Member Subscriber Plan / Payer ( fective 2012-Present) Name:Jorden Hale Member ID:[id number] Relation to Subscriber:Self Name:Jorden Hale Subscriber ID:[id number] Payer ID:[id number] Group ID:Not on file Type:Medicare Address: [employer] [facility] [address] [place] [phone] [facility] [employer] [phone] Care Teams Vat Washer Relationship Specialty Start Date End Date Sheila Stafford MD [address] [place] [address], [address] [place] [address] PCP - General Internal Medicine 05/21/21 Sheila Stafford MD [address] [place] [address], [address] [place] [address] Insurance Assigned Provider 4/6/24 Additional Source Comments The information contained in this document represents components of the legal health record. It is not the complete legal health record.[facility]
--- OUTSIDE RECORDS SUMMARY | 2025-05-08 16:45 | XMS_ITS | Encounter Summary ---
Author Organization [facility], Address [address] [place] [address] Phone Care Team Providers Care Forklift Picker Name Role Phone Susanna Solo DO Primary Care Provider Unava ilable Encounter Details Date Type Department Care Team (Late st Contact Info) Description 12/14/2019 Orders Only [facility] - [address] [place] [address] Laureen Alonzo MD Hyperkalemia; Hypertension Social History [...] Hypertension documented in this encounter Care Teams Forklift Picker Relationship Specialty Start Date End Date Susanna Solo DO PCP - General Investigative Writer 09/07/19 documented as of this encounter
--- OUTSIDE RECORDS SUMMARY | 2025-05-08 16:45 | XMS_ITS | Clinical Summary ---
Author Organization [facility], Address [address] [facility] [address] [place] [address] Phone Care Team Providers Care Bridge Attacher Name Role Phone Susanna Solo DO Primary Care Provider Unava ilable Allergies No known active allergies Medications sacubitril-valsa rtan (Entresto) 24-26 MG per tablet Take 1 tablet by mouth twice a day 08/16/2019 Active pseudoephedrine- guaiFENesin (MUCINEX D) 60-600 MG per 12 hr tablet Take 1 tablet by mouth 2 (two) times a day Active pregabalin (LYRICA) 100 MG capsule Take 100 mg by mouth twice a day 02/22/2019 Active metoprolol succinate XL (TOPROL-XL) 25 MG 24 hr tablet Take 25 mg by mouth daily 08/16/2019 Active metFORMIN (GLUCOPHAGE) 500 MG tablet Take 500 mg by mouth 01/19/2019 Active lisinopril (PRINIVIL,ZESTRI L) 5 MG tablet Take 5 mg by mouth 03/31/2019 Active carbidopa-levodo pa (SINEMET) 25-100 MG per tablet Take 1 tablet by mouth 3 (three) times a day 07/27/2019 Active atorvastatin (LIPITOR) 80 MG tablet Take 80 mg by mouth daily 03/30/2019 Active apixaban (ELIQUIS) 5 MG tablet Take 5 mg by mouth twice a day 05/16/2019 Active Probiotic Product (PROBIOTIC COMPLEX ACIDOPHILUS PO) Take 1 tablet by mouth 1 (one) time each day Active aspirin 81 MG tablet Take 81 mg by mouth 1 (one) time each day 03/30/2019 Active Active Problems Problem Noted Date Diagnosed Date Hyperkalemia 09/07/2019 Hypertension 08/16/2019 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 03/28/2019 Hyperuricemia 10/02/2017 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 Hyperlipidemia 07/02/2017 Immunizations Immunization Administration Dates Next Due Influenza Split High Dose Pr eservative Free IM 06/23/2019,06/24/2018,05/26/2017 Influenza TIV (IM) 06/14/2014 Influenza, Trivalent, Adjuvanted 06/23/2019 Family History Medical History Relation Comments Stroke Father Diabetes Mother Colon cancer Sister Relation Status Comments Father Mother Sister Social History Tobacco Use Types Packs/Day Years [...] on file Sexual Orientation Not on file Last Filed Vital Signs Vital Sign Reading Time Taken Comments Blood Pressure 122/62 10/05/2019 10:07 AM EST Pulse 68 10/05/2019 10:07 AM EST Temperature 36.7 C (98 F) 10/05/2019 10:07 AM EST Respiratory Rate 14 09/14/2019 11:27 AM EST Oxygen Saturation - - Inhaled Oxygen Concentration - - Weight 86.6 kg (191 lb) 10/05/2019 10:07 AM EST Height 179.8 cm (5' 10.8 ) 10/05/2019 10:[address] Body Mass Index 26.79 10/05/2019 10:07 AM EST Plan of Treatment Health Maintenance Due Date Last Done Comments Pneumococcal Vaccine: 50+ Years (1 of 1 - PCV) 11/17/1997 Diabetes: Hemoglobin A1C 09/07/2019 Diabetes: Ophthalmology Exam 09/07/2019 Diabetes: Pedal Pulse Checked 09/07/2019 Diabetes: Sensory Foot Exam 09/07/2019 Diabetes: Visual Foot Exam 09/07/2019 Influenza Vaccine (#1) 2025 9, 06/23/2019, 06/24/2018, Additional history exists Hepatitis B Vaccine Aged Out No longe r eligible based on patient's age to complete this topic Insurance Medicare [facility] Care Teams Bridge Attacher Relationship Specialty Start Date End Date Susanna Solo DO PCP - General Concert Manager 09/07/19
--- OUTSIDE RECORDS SUMMARY | 2025-05-08 16:45 | XMS_ITS | Encounter Summary ---
Author Organization [facility] Address [address] [facility] [address] [place] [address] Phone Care Team Providers Care Slat Basket Maker Name Role Phone Abraham Stafford MD Primary Care Provider [phone] Abraham Stafford MD Unavailable [phone] Encounter Details Date Type Department Care Team (Late st Contact Info) Description 01/15/2022 Ancillary Orders Non-Invasive Cardiology [address] [place] [address] Danisha You MD [address] [place] [phone] [email or web address] Sick sinus syndrome Social History Tobacco [...] Info) Description 11/22/2024 Procedure Pass Echo [facility] [place] [address] [place] [address] 04/25/2025 Procedure Pass Non-Invasive Cardiology [address] [place] [address] 05/22/2025 10:30 AM EDT Appointment Echo Lab [address] [place] [address] Claribel Kendall, [address] [address] 05/31/2025 9:20 AM EDT Office Visit [facility] [address] [place] [address] 3rd Floor, [address] [place] [address] Danish Grace MD [address] [place] [address], [address] [place] [address] 05/31/2025 9:30 AM EDT Appointment Non-Invasive Cardiology [address] [place] [address] [place] [address] Danish Grace MD [address] [place] [address], [address] [place] [address] 06/08/2025 10:00 AM EDT Office Visit [facility] [address] [place] [address] [place] [address] Abraham Stafford MD [address] [place] [address], [address] [place] [address] documented as of this encounter Results * DEVICE CHECK: PPM IN-HOME INTERROGATION (01/15/2022 10:14 AM EDT) Narrative Angel Perdomo DO - 01/21/2022 1:02 PM EDT Reason for appointment: Remote pacemaker interrogation HPI: Routine 3 month remote pacemaker interrogation. No device related complaints. Indication for device: SSS. Examination: Device type: Pacemaker Pomology Teacher: [employer] Mode: DDDR-ADIR LRL/UPL: 60/130 bpm Mode switches: 0 High V rates: 0 Thresholds, impedances, and sensing stable. Atrial pacin% Ventricular pacin% Battery: 80% longevity Additional comments: Device functioning appropriately. Normal device function. Patient to follow-up for continued monitoring every 3 months. Report prepared by Mikayla Austin NP us Danisha You MD [facility] ORDER ANDI Final Result documented in this encounter Visit Diagnoses Diagnosis Sick sinus syndrome Sinoatrial node dysfunction Sick sinus syndrome Sinoatrial node dysfunction documented in this encounter Additional Health Concerns Assessment Noted Time PHQ-2 Depression Total Score: 0 06/20/20 3:03 PM EDT documented as of this encounter Care Teams Slat Basket Maker Relationship Specialty Start Date End Date Abraham Stafford MD [address] [place] [address], [address] [place] [address] [email or web address] PCP - General Internal Medicine 05/21/21 Abraham Stafford MD [address] [place] [address], [address] [place] [address] Insurance Assigned Provider 12/05/23 documented as of this encounter Additional Source Comments The information contained in this document represents components of the legal health record. It is not the complete legal health record.[facility]
--- OUTSIDE RECORDS SUMMARY | 2025-05-08 16:45 | XMS_ITS | Encounter Summary ---
Author Organization [facility] Address [address] [place] [address] Phone Care Team Providers Care Bag Sorter Name Role Phone Abraham Stafford MD Primary Care Provider [phone] Abraham Stafford MD Unavailable [phone] Encounter Details Date Type Department Care Team (Late st Contact Info) Description 04/03/2025 Orders Only [facility] Family Medicine [address] [place] [address] Provider, MD Bobby [address] [place] [address] Social History Tobacco Use Types Packs/Day Years [...] Info) Description 11/22/2024 Procedure Pass Echo Lab [address] [place] [address] 04/25/2025 Procedure Pass Non-Invasive Cardiology [address] [place] [address] [place] [address] 05/22/2025 10:30 AM EDT Appointment Echo Lab [address] [place] [address] Claribel Kendall, [address] [address] 05/31/2025 9:20 AM EDT Office Visit [facility] [address] [place] [address] 3rd Floor, [address] [place] [address] Danish Grace MD [address] [place] [address], [address] [place] [address] 05/31/2025 9:30 AM EDT Appointment Non-Invasive Cardiology [address] [place] [address] [place] [address] Danish Grace MD [address] [place] [address], [address] [place] [address] 06/08/2025 10:00 AM EDT Office Visit [facility] [address] [place] [address] Abraham Stafford MD [address] [place] [address], [address] [place] [address] documented as of this encounter Procedures Procedure Name Priority Date/Time Associated Diagnosis Comments DIABETES EYE EXAM FOR RESULT ENTRY ONLY Routine 03/15/2025 5:16 PM EDT documented in this encounter Results * DIABETES EYE EXAM FOR RESULT ENTRY ONLY (03/15/2025 5:16 PM EDT) us Historical Provider HEALTH MAINTENANCE Edited Result - Final documented in this encounter Visit Diagnoses Not on filedocumented in this encounter Additional Health Concerns Assessment Noted Time PHQ-2 Depression Total Score: 0 05/09/20 1:07 PM EDT documented as of this encounter Care Teams Bag Sorter Relationship Specialty Start Date End Date Abraham Stafford MD [address] [place] [address], [address] [place] [address] PCP - General Internal Medicine 05/21/21 Abraham Stafford MD [address] [facility], [address] [place] [address] Insurance Assigned Provider 12/05/23 documented as of this encounter Additional Source Comments The information contained in this document represents components of the legal health record. It is not the complete legal health record.[facility]
--- OUTSIDE RECORDS SUMMARY | 2025-05-08 16:45 | XMS_ITS | Encounter Summary ---
Author Organization [facility] Address [address] [place] [address] [place] [address] Phone Care Team Providers Care Automatic Grinder Operator Name Role Phone Abraham Stafford MD Primary Care Provider [phone] Abraham Stafford MD Unavailable [phone] Encounter Details Date Type Department Care Team (Late Contact Info) Description 03/11/2022 Procedure Pass [facility] Endoscopy Admitting Dept Virtual Department [address] [place] [address] Social History Tobacco Use Types Packs/Day Years [...] 11/22/2024 Procedure Pass Echo Lab [facility] [address] [place] [address] 04/25/2025 Procedure Pass Non-Invasive [place] [address] 05/22/2025 10:30 AM EDT Appointment Echo Lab [place] [address] [place] [address] Claribel Kendall, DNP [address] [place] [address] 05/31/2025 9:20 AM EDT Office Visit [facility] [address] Floor, [address] [place] [address] Danish Grace MD [address] [place] [address], [address] [place] [address] 05/31/2025 9:30 AM EDT Appointment Non-Invasive Cardiology [address] [place] [address] [place] [address] Danish Grace MD [address] [place] [address], [address] [place] [address] 06/08/2025 10:00 AM EDT Office Visit [facility] Family Medicine [address] [place] [address] [place] [address] Abraham Stafford MD [address] [place] [address], [address] [place] [address] documented as of this encounter Visit Diagnoses Not on filedocumented in this encounter Additional Health Concerns Assessment Noted Time PHQ-2 Depression Total Score: 0 06/20/20 21 3:03 PM EDT documented as of this encounter Care Teams Automatic Grinder Operator Relationship Specialty Start Date End Date Abraham Stafford MD [address] [place] [address], [address] [place] [address] PCP - General Internal Medicine 05/21/21 Abraham Stafford MD [address] [place] [address], [address] [place] [address] Insurance Assigned Provider 12/05/23 documented as of this encounter Additional Source Comments The information contained in this document represents components of the legal health record. It is not the complete legal health record.[facility]
== END 2025-05-08 14:19 | disposition home or self-care (01) ==
LOC: HO.US 14:18
PROVIDERS: PCP Internal Medicine; Visit Provider Surgery Vascular Surgery
DX: I73.9 Peripheral vascular disease, unspecified (principal)
CPT/HCPCS: 93922; 93925

== ENCOUNTER → 2025-05-08 14:21 | Outpatient (BNV) | payer MEDICARE, OTHER, SELFPAY | PROVIDERS: PCP Internal Medicine; Visit Provider Radiology Diagnostic Radiology | DX: I70.213 Atherosclerosis of native arteries of extremities with intermittent claudication, bilateral legs (principal) | CPT/HCPCS: 93922; 93925 ==

== ENCOUNTER 2025-06-01 12:54 | Outpatient (AMB) | payer MEDICARE, OTHER, SELFPAY ==
--- OUTSIDE RECORDS SUMMARY | 2025-05-31 09:17 | XMS_ITS | Encounter Summary ---
Author Organization [facility] Address [address] [facility] [address] [place] [address] Phone Care Team Providers Care Flight Purser Name Role Phone Abraham Stafford MD Primary Care Provider [phone] Abraham Stafford MD Unavailable [phone] Encounter Details Date Type Department Care Team (Latest Contact Info) Description 05/31/2025 9:17 AM EDT - 05/31/2025 11:59 PM EDT Hospital Encounter Non-Invasive Cardiology [address] [place] [address] Danish Grace MD [address] [facility], [address] [place] [address] [email or web address] Arrived Discharge Disposition: Home or Self Care Social History Tobacco Use Types Packs/Day Years [...] AM EST documented as of this encounter Medications at Time of Discharge allopurinol (ZYLOPRIM) 100 MG tabletIndications: Hyperuricemia take 2 tablets by mouth every day 180 tablet 3 06/02/2024 aspirin 81 mg chewable tablet Take 81 mg by mouth daily. atorvastatin (LIPITOR) 80 MG tabletIndications: Hypertension TAKE 1 TABLET BY MOUTH EVERY DAY 90 tablet 3 10/28/2024 carbidopa-levodopa (SINEMET) 25-100 mg per tabletIndications: Parkinson's disease TAKE 1 TABLET BY MOUTH THREE TIMES A DAY 270 tablet 3 04/26/2025 cyanocobalamin, vitamin B-12, 1000 MCG tablet Take 1,000 mcg by mouth daily. ELIQUIS 5 mg tabletIndications: Paroxysmal atrial fibrillation take 1 tablet by mouth twice a day 180 tablet 3 06/02/2024 metFORMIN (GLUCOPHAGE) 500 MG tabletIndications: 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, without long-term current use of insulin TAKE 1 TABLET BY MOUTH EVERY DAY WITH BREAKFAST 90 tablet 04/26/2025 metoprolol succinate (TOPROL-XL) 25 MG 24 hr tabletIndications: Hypertension,Medic ation refill TAKE 1 TABLET (25 MG TOTAL) BY MOUTH DAILY. 90 tablet 3 10/28/2024 pregabalin (LYRICA) 150 MG capsuleIndications :Neuropathy Take 1 capsule (150 mg total) by mouth 3 (three) times a day. 270 capsule 1 03/15/2025 documented as of this encounter Plan of Treatment Upcoming Encounters Date Type Department Care Team (Latest Contact Info) Description 06/08/2025 10:00 AM EDT Office Visit [facility] [address] [place] [address] Abraham Stafford MD [address] [place] [address], [address] [place] [address] 07/20/2025 Procedure Pass [facility] Endoscopy Admitting Dept Virtual Department [address] [place] [address] 07/20/2025 1:00 PM EST Hospital Encounter [facility] Endoscopy Admitting Dept Virtual Department [address] [place] [address] Drew Varela MD [address] [address] 07/20/2025 1:00 PM EST - 07/20/2025 1:30 PM EST Surgery [facility] Endoscopy Admitting Dept Virtual Department [address] [place] [address] Drew Varela MD [address] [address] COLONOSCOPY 11/29/2025 10:20 AM EDT Office Visit [facility] [address] [place] [address] 3rd Floor, [address] [place] [address] Danish Grace MD [address] [place] [address], [address] [place] [address] Scheduled Procedures Name Priority Associated Diagnoses Date/Ti me COLONOSCOPY Family history of colon cancer Hx of colonic polyps 07/20/2025 1:00 PM EST documented as of this encounter Procedures Procedure Name Priority Date/Time Associated Diagnosis Comments DEVICE CHECK: PPM IN-PERSON PROGRAMMING DUAL LEAD Routine 05/31/2025 12:37 PM EDT Sick sinus syndrome documented in this encounter Results * DEVICE CHECK: PPM IN-PERSON PROGRAMMING DUAL LEAD (05/31/2025 12:37 PM EDT) Narrative Danish Grace MD - 05/31/2025 12:55 PM EDT Table formatting from the original result was not included. Reason for appointment: In-office pacemaker interrogation HPI: Routine in-office pacemaker interrogation during appt w/Dr. Grace, using iterative adjustment to test the function of the device and select optimal permanent programmed values. No device related complaints. Indication for device: SSS Examination: Device type: Pacemaker On Site Property Manager: [employer] Mode: DDDR-ADIR LRL/URL: 60/130 bpm Thresholds, impedances, and sensing stable. High V rates: 0 Mode switches: 2 episodes of Afib for an Afib burden of 0% AF/AT: Patient is currently taking Eliquis daily. Atrial pacin% Ventricular pacin% Battery: 5 yrs RA RV LV Sensing 2.5mV 8.4mV Threshold 0.6V@.4ms 1V@.4ms Impedance 507 ohms 487 ohms Additional comments or changes: normal pacemaker function and stable pacing and sensing thresholds Patient will return for in-office device check in: 6 months Report prepared by Elana Card RN Danish Grace MD [facility] ORDERABLE S Final Result documented in this encounter Visit Diagnoses Diagnosis Sick sinus syndrome Sinoatrial node dysfunction Family history of colon cancer Family history of malignant neoplasm of gastrointestinal tract Hx of colonic polyps Personal history of colonic polyps documented in this encounter Additional Health Concerns Assessment Noted Time PHQ-2 Depression Total Score: 0 05/09/20 24 1:07 PM EDT documented as of this encounter Care Teams Flight Purser Relationship Specialty Start Date End Date Abraham Stafford MD [address] [place] [address], [address] [place] [address] PCP - General Internal Medicine 05/21/21 Abraham Stafford MD [address] [place] [address], [address] [place] [address] [email or web address] Insurance Assigned Provider 12/05/23 documented as of this encounter Additional Source Comments The information contained in this document represents components of the legal health record. It is not the complete legal health record.[facility]
--- OUTSIDE RECORDS SUMMARY | 2025-05-31 09:20 | XMS_ITS | Encounter Summary ---
Author Organization [facility] Address [address] [place] [address] Phone Care Team Providers Care Work Study Student Name Role Phone Abraham Stafford MD Primary Care Provider [phone] Abraham Stafford MD Unavailable Encounter Details Date Type Department Care Team (Latest Contact Info) Description 05/31/2025 9:20 AM EDT Office Visit [facility] [address] [place] [address] 3rd Floor, [address] [place] [address] Danish Grace MD [address] [facility], [address] [place] [address] [email or web address] Coronary artery disease involving [place] coronary artery of [place] heart without angina pectoris (Primary Dx); Ischemic cardiomyopathy; Pacemaker; Essential hypertension Social History Tobacco Use Types Packs/Day Years [...] with a working camera? Not on file 05 / Intimate Partner Violence Answer Date R ecorded [...] AM EST documented as of this encounter Last Filed Vital Signs Vital Sign Reading Time Taken Comments Blood Pressure 120/70 05/31/2025 9:24 AM EDT Pulse 61 05/31/2025 9:24 AM EDT Temperature - - Respiratory Rate - - Oxygen Saturation 97% 05/31/2025 9:24 AM EDT Inhaled Oxygen Concentration - - Weight 92.7 kg (204 lb 6.4 oz) 05/31/2025 9:24 A M EDT Height 172.7 cm (5' 7.99 ) 05/31/2025 9:24 AM ED T Body Mass Index 31.09 05/31/2025 9:24 AM EDT documented in this encounter Progress Notes * Danish Grace MD - 05/31/2025 9:20 AM EDT [facility] Cardiology Follow-Up Visit Date: 05/31/2025 Primary Care Physician: Abarham Stafford MD Primary Executive Account Manager: Sanjay History of Presenting Illness: Jorden Hale is a 79 y.o. male with past medical history of Ischemic cardiomyopathy with recovered EF 50 to 55%, CAD status post single-vessel CABG (VERMA-LAD) with residual 80% in the RCA, CVA secondary to atrial fibrillation now on Eliquis, sick sinus syndrome status post dual-chamber pacemaker, type 2 diabetes, hypertension, and dyslipidemia who presents today for follow-up. Past Medical History: Mr. Hale suffered an acute ischemic stroke in the setting of atrial fibrillation in February 2017 [facility]. He underwent mechanical thrombectomy/aspiration of the left MCA M1 to M2 segment occlusion and this was complicated by a postprocedural moderately sized subarachnoid hemorrhage. He had no significant carotid artery disease at that time. Unfortunately, during that hospitalization, his echocardiogram showed what appeared to be an ischemic cardiomyopathy with an EF of 40% and a dilated left ventricle with LVIDD 62 mm. He underwent a cardiac catheterization with Dr. Hinkle in August 2019 thatshowed two-vessel coronary artery disease (a small codominant RCA had an 80% stenosis and his proximal LAD had 80 to 90% eccentric stenosis.) The patient opted to go for single-vessel CABG rather than PCI and had a VERMA to LAD graft with left atrial appendage ligation, bilateral pulmonary vein isolation, and pulmonary vein ablation. 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 Franco. On serial device interrogations subsequently, he has been found to have episodes of paroxysmal A. fib, but is asymptomatic from that standpoint. He recently saw Dr. Lerma, one of our EP colleagues, who recommended ongoing rate control and anticoagulation, but no other changes. Past Medical History: Diagnosis Date Adverse effect of anesthetic Aortic regurgitation surviellence Atrial flutter Atrial flutter B12 deficiency Cerebrovascular accident (CVA) 01/2019 some aphasia at times, some cognitive issues remain, right sided weakness Colon polyp Congestive heart failure COVID-19 09/05/2021 fatigue for a week no long haul Diabetes mellitus Gout Hyperlipidemia Hypertensive disorder Hyperuricemia Malaria in [place] Myocardial infarction Myocardiopathy Neuropathy NSVT (nonsustained ventricular tachycardia) Osteoarthritis Osteoarthritis of right knee Pacemaker Paroxysmal A-fib Peripheral vascular disease right leg - missing toe Rupture of biceps tendon bilateral Sick sinus syndrome Wears dentures Past Surgical History: Past Surgical History: Procedure Laterality Date AMPUTATION 2017 toe R 3rd ANGIOPLASTY Bilateral 2018 Balloon/ bilateral / legs for PVD APPENDECTOMY Appendectomy CARPAL TUNNEL RELEASE CARPAL TUNNEL RELEASE Right Right Open Carpal Tunnel Release CARPAL TUNNEL RELEASE Left Left Open Carpal Tunnel Release CATARACT EXTRACTION Bilateral COLONOSCOPY COLONOSCOPY N/A 03/11/2022 Performed by Drew Varela MD at [facility] ENDOSCOPY COLONOSCOPY N/A 09/06/2018 Performed by Drew Varela MD at [facility] ENDOSCOPY CORONARY ARTERY BYPASS GRAFT INSERT / REPLACE / REMOVE PACEMAKER PILONIDAL CYST DRAINAGE Incision and Drainage of Pil[place]dal Cyst RELEASE CARPAL TUNNEL REVISION Left 12/13/2021 Performed by Mindy Mcleod MD at [facility] OR THROMBECTOMY TONSILLECTOMY Current Medications: Outpatient Medications Marked as Taking for the 05/31/25 encounter (Office Visit) with Danish Grace MD Medication Sig Dispense Refill Last Dispense allopurinol (ZYLOPRIM) 100 MG tablet take 2 tablets by mouth every day 180 tablet 3 Unknown (outside pharmacy) aspirin 81 mg chewable tablet Take 81 mg by mouth daily. Unknown (patient-reported) atorvastatin (LIPITOR) 80 MG tablet TAKE 1 TABLET BY MOUTH EVERY DAY 90 tablet 3 Unknown (outside pharmacy) carbidopa-levodopa (SINEMET) 25-100 mg per tablet TAKE 1 TABLET BY MOUTH THREE TIMES A DAY (Patienttaking differently: Take 1 tablet by mouth 2 (two) times a day.) 270 tablet 3 Unknown (outside pharmacy) cyanocobalamin, vitamin B-12, 1000 MCG tablet Take 1,000 mcg by mouth daily. Unknown (patient-reported) ELIQUIS 5 mg tablet take 1 tablet by mouth twice a day 180 tablet 3 Unknown (outside pharmacy) metFORMIN (GLUCOPHAGE) 500 MG tablet TAKE 1 TABLET BY MOUTH EVERY DAY WITH BREAKFAST 90 tablet 0 Unknown (outside pharmacy) metoprolol succinate (TOPROL-XL) 25 MG 24 hr tablet TAKE 1 TABLET (25 MG TOTAL) BY MOUTH DAILY. 90 tablet 3 Unknown (outside pharmacy) pregabalin (LYRICA) 150 MG capsule Take 1 capsule (150 mg total) by mouth 3 (three) times a day. 270 capsule 1 Unknown (outside pharmacy) Allergies: No Known Allergies Family History: Family History Problem Relation Age of Onset CV disease Father Diabetes mellitus Mother Social History: Social History Social History Narrative , stays active with staionary bicycling. 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 Social History Tobacco Use Smoking status: Former Current packs/day: 0.00 Average packs/day: 2.0 packs/day for 20.0 years (40.0 ttl pk-yrs) Types: Cigarettes Start date: 06/21/1965 Quit date: 1984 Years since quittin.7 Smokeless tobacco: Never Substance Use Topics Alcohol use: Yes Alcohol/week: 14.0 standard drinks of alcohol Types: 14 Standard drinks or equivalent per week Physical Examination: Vital Signs: Vitals: 05/31/25 0924 BP: 120/70 Pulse: 61 SpO2: 97% Weight: 92.7 kg (204 lb 6.4 oz) Height: 172.7 cm (5' 7.99 ) BMI: Body mass index is 31.09 kg/m??. Cardiovascular: Normal PMI, no thrills/heave. Normal S1 and S2. No added murmurs, gallops, or rubs. General Appearance: No acute distress, well-nourished. Neurologic: Alert, awake, and oriented, normal affect. Eyes: No conjunctival pallor, xanthelasma, or arcus senilis. Pupils equal. ENT: Normal dentition, no pallor/cyanosis/inflammation of the oral mucosa. Neck: No JVD or hepatojugular reflux. No enlargement of the thyroid. Carotid pulse 2+ bilaterally. No carotid bruits. Respiratory: Appropriate respiratory effort. Lungs clear to auscultation bilaterally, no wheezing/rhonchi/rales. Musculoskeletal: Normal curvature of the spine without kyphosis or scoliosis. Normal gait. Extremities/Skin: Normal hands and feet without stigmata of embolic or peripheral vascular disease.No clubbing or cyanosis noted. Relevant Testing: EK05/12/2023 shows sinus rhythm 60 bpm with left axis deviation and normal voltage. 05/12/2024 shows sinus rhythm 60 bpm with normal axis and normal voltage. He has inferior and anteroseptal Q waves. 05/31/2025 shows sinus rhythm 60 bpm with left axis deviation and normal voltage. He has anteroseptal Q waves, which are pre-existing. Echo: He had his echo repeated 03/10/2022 showing low normal EF 50 to 55%, grade 1 diastolic dysfunction, mild to moderate aortic regurgitation, mild mitral regurgitation, and mild pulmonary hypertension. Other Cardiovascular Testing: His last remote device interrogation (Biotronik chamber pacemaker) was in October 2020 and showed normal device function with 0 mode switches. Labs: Lab Results Component Value Date CHOL 140 05/13/2024 Lab Results Component Value Date HDL 39 05/13/2024 No results found for: LDLCALC Lab Results Component Value Date TRIG 233 (H) 05/13/2024 Lab Results Component Value Date CHOLHDL 3.6 05/13/2024 WBC Date Value Ref Range Status 03/23/2024 7.07 4.00 - 11.00 K/uL Final HGB Date Value Ref Range Status 03/23/2024 14.6 12.4 - 17.3 g/dL Final HCT Date Value Ref Range Status 03/23/2024 43.5 37.0 - 51.0 % Final Lab Results Component Value Date NA 141 05/13/2024 K 4.9 05/13/2024 CL 103 05/13/2024 CO2 27 05/13/2024 BUN 26 (H) 05/13/2024 CRE 1.20 05/13/2024 UCRE 123 03/23/2024 GLU 134 (H) 05/13/2024 CA 9.3 05/13/2024 GFR 63 05/13/2024 ANION 16 05/13/2024 Assessment: Jorden Hale is a 79 y.o. male with past medical history of Ischemic cardiomyopathy with recovered EF 50 to 55%, CAD status post single-vessel CABG (VERMA-LAD) with residual 80% in the RCA, CVA secondary to atrial fibrillation now on Eliquis, sick sinus syndrome status post dual-chamber pacemaker, type 2 diabetes, hypertension, and dyslipidemia who presents today for follow-up. He is doing very well and denies any symptoms concerning for angina or congestive heart failure. Wetalked about his progressive deconditioning over the last couple of years since his stroke. I suggested he try to find a form of aerobic exercise such as an exercise bike, swimming, or rowing that would allow him to get back into better shape. He denies any anginal symptoms at his current activity level, including doing yard work on a regular basis. His blood pressure has been under excellent control both here in the office and at home. His lipid panel last year showed an LDL of 54 and I cued 1 up for him to have it repeated before his upcoming physical next week. We interrogated his pacemaker today showing 5 years of battery estimated battery life remaining. Hehas had 2 brief episodes of A-fib that were only few seconds long. The device is functioning normally a pacing 95%, V pacing 18%. Plan: No changes to his current medical therapy. Goal BP <130/80. Goal LDL <55. Follow-up: 6 months Electronically signed by: Danish Grace MD [facility] 05/31/2025 documented in this encounter Plan of Treatment Upcoming Encounters Date Type Department Care Team (Latest Contact Info) Description 06/08/2025 10:00 AM EDT Office Visit [address] [address] Abraham Stafford MD [address] [place] [address], [address] [place] [address] 07/20/2025 Procedure Pass [facility] Admitting Dept Virtual Department [address] [place] [address] 07/20/2025 1:00 PM EST Hospital Encounter [facility] Admitting [facility] Virtual Department [address] [place] [address] Drew Varela MD [address] [address] 07/20/2025 1:00 PM EST - 07/20/2025 1:30 PM EST Surgery [facility] Admitting Dept Virtual Department [address] [place] [address] Drew Varela MD [address] [place] [address] COLONOSCOPY 11/29/2025 10:20 AM EDT Office Visit [facility] [address] [place] [address] 3rd Floor, [address] [place] [address] Danish Grace MD [address] [place] [address], [address] [place] [address] Scheduled Orders Name Type Priority Associated Diagnoses Orde r Schedule ECG 12-LEAD ECG Routine Coronary artery disease involving [place] coronary artery of [place] heart without angina pectoris Ordered: 05/31/2025 Basic metabolic panel Lab Routine Coronary artery disease involving [place] coronary artery of [place] heart without angina pectoris Expected: 05/31/2025, Expires: 08/31/2025 Lipid panel Lab Routine Coronary artery disease involving [place] coronary artery of [place] heart without angina pectoris Expected: 05/31/2025, Expires: 08/31/2025 Scheduled Procedures Name Priority Associated Diagnoses Date/Ti me COLONOSCOPY Family history of colon cancer Hx of colonic polyps 07/20/2025 1:00 PM EST documented as of this encounter Visit Diagnoses Diagnosis Coronary artery disease involving [place] coronary artery of [place] heart without angina pectoris- Primary Ischemic cardiomyopathy Other specified forms of chronic ischemic heart disease Pacemaker Cardiac pacemaker in situ Essential hypertension Unspecified essential hypertension Family history of colon cancer Family history of malignant neoplasm of gastrointestinal tract Hx of colonic polyps Personal history of colonic polyps documented in this encounter Additional Health Concerns Assessment Noted Time PHQ-2 Depression Total Score: 0 05/09/20 1:07 PM EDT documented as of this encounter Care Teams Work Study Student Relationship Specialty Start Date End Date Abraham Stafford MD [address] [place] [address], [address] [address] PCP - General Internal Medicine 05/21/21 Abraham Stafford MD [address] [place] [address], [address] [address] Insurance Assigned Provider 12/05/23 documented as of this encounter Additional Source Comments The information contained in this document represents components of the legal health record. It is not the complete legal health record.[facility]
--- NOTE | 2025-06-01 13:05 | MHC.OFFVIS ---
Intake Visit Reasons: 1 year follow up Arterial 05/08/25 Intake Note: Patient presents for one year follow up arterial US performed on 05/08/25. Patient is questioning why his right leg is bigger than the left. No other complaints. Accompanied by: Spouse Allergies No Known Allergies (No Known Allergies*) Allergy (Verified 06/01/25 13:08) HPI HPI 1 year follow up Arterial 05/08/25: Details: The patient is a 79-year-old male presenting with a routine arterial follow-up. He has a history of peripheral artery disease, having undergone angioplasty of the right anterior tibial artery in July 2017 and a right third toe amputation in August 2017. In December 2017, he underwent further angioplasty of the right anterior tibial, peroneal, and popliteal arteries. The patient also has a history of a stroke in 2018, followed by open-heart surgery eight months later. He is currently on a regimen of baby aspirin, Eliquis, and a cholesterol-lowering medication. The patient reports difficulty walking due to leg fatigue, which has led to decreased physical activity. His associate software application engineer has advised increasing physical activity to prevent further decline in mobility. PFSH Medical History PVD (peripheral vascular disease) Diabetes Hypercholesteremia Surgical History History of open heart surgery Hx of brain surgery S/P angiogram of extremity Toe amputee Social History Patient Tobacco Use Status: Never used Tobacco Review of Systems Const All systems reviewed & are unremarkable except as noted in HPI and below Reports no additional complaints ENT Reports Normal hearing present Card Denies chest pain, Denies chest pain at rest, Denies chest pain with activity and Denies pedal edema Resp Denies cough GI Denies abdominal pain Musc Denies abnormal gait, Denies muscle cramps and Denies radiating pain into limb Skin/Breast Denies skin ulcer and Denies wounds Neuro Reports Normal hearing present and Denies abnormal gait Psych Reports no additional complaints Physical Exam Const General: cooperative, healthy appearing and comfortable Orientation/consciousness: oriented to person, oriented to place and oriented to time HEENT Head: Yes normal to inspection Neck Neck: Yes normal visual inspection Carotids: no bruits Chest Chest palpation & inspection: normal inspection of the chest Resp Effort & Inspection: normal respiratory effort and able to speak in complete sentences Auscultation: clear to auscultation bilaterally, no crackles, no rales, no rhonchi and no wheezes Cardio Other: Bilateral DP signal Rate: regular rate Rhythm: regular rhythm Heart sounds: S1 normal heart sound present and S2 normal heart sound present Bruits: no carotid bruits Peripheral pulses: Peripheral pulses 2+ throughout GI Inspection: Yes normal to inspection Skin Wounds: no wounds Hair: normal Neuro General: oriented to person, oriented to place and oriented to time Cranial nerves: Yes CN's II-XII intact bilaterally and Yes Normal hearing present Cognition (Neuro): normal cognition Motor exam (neuro): 5/5 motor strength present throughout Extrem Other: venous exam: No significant superficial varicosities or spider telangiectasias, minimal edema General: No clubbing, No cyanosis and No edema Psych Appearance: grossly normal Mental Status: mental status grossly normal Speech and movement: Normal speech and movement present Results Reviewed Results Reviewed: Noninvasive arterial testing from 05/08/2025 demonstrates RAY on the right of 1.08 and on the left of 1.44. Written report and images were reviewed. Assessment & Plan Assessment & Plan (1) PVD (peripheral vascular disease): Comment: 08/05/2017 -plasty of right anterior tibial 09/01/2017- amputation of right 3rd toe 01/01/2018 - plasty of right anterior tibial peroneal and popliteal arteries Code(s): I73.9 - Peripheral vascular disease, unspecified Category: Medical Plan: In short patient has stable claudication. I did review the pathophysiology of peripheral vascular disease with the patient. In addition we did discuss routine conservative measures including a healthy diet and the importance of exercise and ambulation. We did discuss risk factor modification. The patient will continue to to follow-up with surveillance follow-up in approximately 1 year. Thank you for allowing us to participate in this patient's care. If there are any questions or concerns please do not hesitate to contact us. Plan Patient was informed and verbally consented to the use of an ambient scribe for clinic note documentation during this visit. Orders: Orders US arterial duplex LE BI Today I73.9 - Peripheral vascular disease, unspecified Patient Instructions: - Continue taking baby aspirin, Eliquis, and cholesterol medication as prescribed. - Schedule regular follow-up appointments to monitor your condition. - Increase physical activity gradually to improve mobility and prevent further decline. Coding Level of Care Code Est Pt Level 4 (01151) Complex EM visit Add On G2211 Diagnoses PVD (peripheral vascular disease) I73.9
--- OUTSIDE RECORDS SUMMARY | 2025-06-01 14:19 | XMS_ITS | Encounter Summary ---
Author Organization [facility] Address [address] [place] [address] [place] [address] Phone Care Team Providers Care Utility Locator Name Role Phone SoloSusanna Mary DO Unavailable [phone] Freddie Granados MD Primary Care Provider [phone] Abraham Stafford MD Primary Care Provider [phone] Abraham Stafford MD Unavailable [phone] Encounter Details Date Type Department Care Team (Late st Contact Info) Description 02/12/2021 Ancillary Orders Non-Invasive Cardiology [address] [place] [address] [place] [address] Danisha You MD [address] [place] [address] [phone] [email or web address] Sick sinus syndrome Social History Tobacco Use [...] Description 06/08/2025 10:00 AM EDT Office Visit [facility] [address] [place] [address] Abraham Stafford MD [address] [place] [address], [address] [place] [address] [email or web address] 07/[email or web address]/2025 Procedure Pass [facility] Endoscopy Admitting Dept Virtual Department [address] [place] [address] 07/20/2025 1:00 PM EST Hospital Encounter [facility] Endoscopy Admitting Dept Virtual Department [address] [place] [address] Drew Varlea MD [address] [address] 07/20/2025 1:00 PM EST - 07/20/2025 1:30 PM EST Surgery [facility] Endoscopy Admitting Dept Virtual Department [address] [place] [address] Drew Varela MD [address] [address] [email or web address] COLONOSCOPY 11/29/2025 10:20 AM EDT Office Visit [facility] [address] [place] [address] Dr 3rd Floor, [address] [place] [address] Danish Grace MD [address] [place] [address], [address] [place] [address] [email or web address] Scheduled Procedures Name Priority Associated Diagnoses Date/Ti me COLONOSCOPY Family history of colon cancer Hx of colonic polyps 07/20/2025 1:00 PM EST documented as of this encounter Results * DEVICE CHECK: PPM IN-HOME INTERROGATION (02/12/2021 8:31 AM EDT) Narrative Angel Perdomo DO - 02/19/2021 12:21 PM EDT Reason for appointment: Remote pacemaker interrogation HPI: Routine 3 month remote pacemaker interrogation. No device related complaints. Indication for device: SSS. Examination: Device type: Pacemaker Oil Field Technician: Biotronik Mode: DDDR-ADIR LRL/UPL: 60/130 bpm Mode switches: 0 High V rates: 0 Thresholds, impedances, and sensing stable. Atrial pacin% Ventricular pacin% Battery: 85% longevity Additional comments: Device functioning appropriately. Normal device function. Patient to follow-up for continued monitoring every 3 months. Report prepared by Elana Renteria RN us Danisha You MD [facility] ORDER ANDI Final Result documented in this encounter Visit Diagnoses Diagnosis Sick sinus syndrome Sinoatrial node dysfunction Sick sinus syndrome Sinoatrial node dysfunction Family history of colon cancer Family history of malignant neoplasm of gastrointestinal tract Hx of colonic polyps Personal history of colonic polyps documented in this encounter Additional Health Concerns Assessment Noted Time PHQ-2 Depression Total Score: 0 10/23/19 11:07 AM EST documented as of this encounter Care Teams Utility Locator Relationship Specialty Start Date End Date Freddie Granados MD [address] [place] [address], [address] [place] [address] PCP - General Internal Medicine 01/04/21 05/20/21 Abraham Stafford MD [address] [place] [address], [address] [place] [address] PCP - General Internal Medicine 05/21/21 Susanna Solo DO [address] [place] [address] [email or web address] Assigned Provider 05/28/19 12/07/21 Abraham Stafford MD [address] [place] [address], [address] [place] [address] [email or web address] Insurance Assigned Provider 12/05/23 documented as of this encounter Additional Source Comments The information contained in this document represents components of the legal health record. It is not the complete legal health record.[facility]
--- OUTSIDE RECORDS SUMMARY | 2025-06-01 14:19 | XMS_ITS | Encounter Summary ---
Author Organization [facility] Address [address] [facility] [address] [place] [address] Phone Care Team Providers Care Packing Checker Name Role Phone Bony Wang MD Primary Care Provide r Bony Wang MD Unavailable [phone] Susanna Solo DO Primary Care Provider + [phone] Susanna Solo DO Unavailable [phone] Chasidy Diop RN Unavailable [email or web address] Abraham Stafford MD Primary Care Provider [phone] Freddie Granados MD Primary Care Provider [phone] Abraham Stafford MD Primary Care Provider [phone] Abraham Stafford MD Unavailable [phone] Encounter Details Date Type Department Care Team (Latest Contact Info) Description 10/21/2017 Transcribe Orders [facility] Specimen Processing [address] [place] [address] Kellee Hadley MD [address] [place], [place] [id number] Osteomyelitis, unspecified site, unspecified type (Primary Dx) [...] Description 06/08/2025 10:00 AM EDT Office Visit [address] [address] Abraham Stafford MD [address] [place] [address], [address] [place] [address] 07/20/2025 Procedure Pass [facility] Endoscopy Admitting Dept Virtual Department [address] [place] [address] 07/20/2025 1:00 PM EST Hospital Encounter [facility] Endoscopy Admitting Dept Virtual Department [address] [place] [address] Drew Varela MD [address] [address] 07/20/2025 1:00 PM EST - 07/20/2025 1:30 PM EST Surgery [facility] Endoscopy Admitting Dept Virtual Department [address] [place] [address] Drew Varela MD [address] [place] [address] COLONOSCOPY 11/29/2025 10:20 AM EDT Office Visit [facility] [address] [place] [address] 3rd Floor, [address] [place] [address] Danish Grace MD [address] [place] [address], [address] [place] [address] Scheduled Procedures Name Priority Associated Diagnoses Date/Ti me COLONOSCOPY Family history of colon cancer Hx of colonic polyps 07/20/2025 1:00 PM EST documented as of this encounter Results * (ABNORMAL) CBC and differential (10/21/2017 8:30 AM EST) WBC 9.73 3.40 - 11.20 K/uL [facility] RBC 4.26(L) 4.50 - 5.50 M/uL [facility] HGB 13.8 13.0 - 17.0 g/dL [facility] HCT 40.0 40.0 - 51.0 % [facility] PLT 222 130 - 400 K/uL [facility] MCV 93.9 79.0 - 98.0 fL [facility] MCH 32.4 27.0 - 34.8 pg [facility] MCHC 34.5 31.5 - 36.0 g/dL [facility] RDW 13.6 10.8 - 14.6 % [facility] MPV 11.2 9.4 - 12.4 fl [facility] NRBC 0.00 /100 WBCs [facility] ABSOLUTE NRBC 0.00 K/uL [facility] DIFF METHOD Auto [facility] NEUTS 69.1 45.30 - 77.70 % [facility] LYMPHS 15.7 12.30 - 39.70 % [facility] MONOS 10.7 4.10 - 12.80 % [facility] EOS 3.4 0 - 7.2 % [facility] BASOS 0.6 0 - 2.80 % [facility] Granulocytes, immature (%) 0.5 0.0 - 0.9 % [facility] ABSOLUTE NEUTS 6.72 1.40 - 7.70 K/uL [facility] ABSOLUTE LYMPHS 1.53 0.60 - 3.20 K/uL [facility] ABSOLUTE MONOS 1.04(H) 0.11 - 0.59 K/uL [facility] ABSOLUTE EOS 0.33 0.01 - 0.50 K/uL [facility] ABSOLUTE BASOS 0.06 0.00 - 0.08 K/uL [facility] Granulocytes, immature 0.05 0.00 - 0.05 K/uL [facility] Blood 10/21/2017 8:30 AM EST 10/21/2017 10:29 AM EST us Kellee Hadley MD LAB BLOOD ORDERABLES Final Result Performing Organization Address [facility]/ZIP Co de Phone Number [address] [address] * (ABNORMAL) Vancomycin, trough (10/21/2017 8:30 AM EST) VANCOMYCIN,TRO UGH 9.5(L) 10.0 - 20.0 ug/mL [facility] Comment: Interpretation: Therapeutic Range: 10.0 - 20.0 ug/ml. Toxic: Greater than 30.0 ug/ml. Blood 10/21/2017 8:30 AM EST 10/21/2017 10:29 AM EST us Kellee Hadley MD LAB BLOOD ORDERABLES Final Result Performing Organization Address [facility] Co de Phone Number [address] [address] * (ABNORMAL) Sedimentation rate (ESR) (10/21/2017 8:30 AM EST) ESR 33(H) 0 - 20 mm/h [facility] Blood 10/21/2017 8:30 AM EST 10/21/2017 10:29 AM EST us Kellee Hadley MD LAB BLOOD ORDERABLES Final Result Performing Organization Address [facility] Co de Phone Number [address] [address] * CPK (creatine kinase) (10/21/2017 8:30 AM EST) CREATINE KINASE 158 35 - 232 U/L [facility] Blood 10/21/2017 8:30 AM EST 10/21/2017 10:29 AM EST us Kellee Hadley MD LAB BLOOD ORDERABLES Final Result Performing Organization Address City/[facility]/ZIP Co de Phone Number [address] [address] * (ABNORMAL) Comprehensive metabolic panel (10/21/2017 8:30 AM EST) SODIUM 137 133 - 146 mmol/L [facility] POTASSIUM 4.8 3.3 - 5.1 mmol/L [facility] CHLORIDE 101 96 - 108 mmol/L [facility] CO2 20(L) 21 - 35 mmol/L [facility] BUN 19 6 - 19 mg/dL [facility] CREATININE 1.10 0.5 - 1.5 mg/dL [facility] GLUCOSE 227(H) 70 - 99 mg/dL [facility] ALBUMIN 3.6(L) 3.9 - 4.8 g/dL [facility] TOTAL PROTEIN 6.9 6.5 - 8.0 g/dL [facility] CALCIUM 9.2 8.4 - 10.3 mg/dL [facility] ALKALINE PHOSPHATASE 161(H) 39 - 117 U/L [facility] TOTAL BILIRUBIN 0.6 0 - 1.2 mg/dL [facility] AST 17 0 - 37 U/L [facility] ALT 13 0 - 40 U/L [facility] GLOBULIN 3.3 1 - 4.8 g/dL [facility] EGFR >60 >60 mL/min/1.7 3m2 [facility] Comment:Abnormal if <60. If patient is -Chilean, multiply the result by 1.21. ANION GAP 21(H) 10 - 20 mmol/L [facility] Blood 10/21/2017 8:30 AM EST 10/21/2017 10:29 AM EST us Kellee Hadley MD LAB BLOOD ORDERABLES Final Result [facility] [address] [place] [address] documented in this encounter Visit Diagnoses Diagnosis Osteomyelitis, unspecified site, unspecified type- Primary Family history of colon cancer Family history of malignant neoplasm of gastrointestinal tract Hx of colonic polyps Personal history of colonic polyps documented in this encounter Care Teams Packing Checker Relationship Specialty Start Date End Date Bony Wang MD [email or web address] PCP - General 06/18/17 09/02/18 Susanna Solo DO [address] [place] [address] [email or web address] PCP - General Family Medicine 09/03/18 01/02/21 Abraham Stafford MD [address] [place] [address], [address] [place] [address] [email or web address] PCP - General Internal Medicine 01/03/21 01/03/21 Freddie Granados MD [address] [place] [address], [address] [place] [address] [email or web address] PCP - General Internal Medicine 01/04/21 05/20/21 Abraham Stafford MD [address] [place] [address], [address] [place] [address] [email or web address] PCP - General Internal Medicine 05/21/21 Bony Wang MD [address] [place] [address] Floor 1 [place] [address] [email or web address] Insurance Assigned Provider 11/28/17 05/28/19 Susanna Solo DO [address] [place] [address] [email or web address] Insurance Assigned Provider 05/28/19 12/07/21 Chasidy Diop RN [address] [place] [address] [email or web address] Retail Associate Manager Bilingual 10/28/19 11/01/19 Abraham Stafford MD [address] [place] [address], [address] [place] [address] [email or web address] Insurance Assigned Provider 12/05/23 documented as of this encounter Additional Source Comments The information contained in this document represents components of the legal health record. It is not the complete legal health record.[facility]
--- OUTSIDE RECORDS SUMMARY | 2025-06-01 14:19 | XMS_ITS | Encounter Summary ---
Author Organization [facility] Address [address] [facility] [address] [place] [address] Phone Care Team Providers Care Casey Saw Operator Name Role Phone Susanna Solo DO Unavailable [phone] Freddie Granados MD Primary Care Provider + [phone] Abraham Stafford MD Primary Care Provider [phone] Abraham Stafford MD Unavailable [phone] Encounter Details Date Type Department Care Team (Late st Contact Info) Description 02/12/2021 Procedure Pass Non-Invasive Cardiology [address] [place] [id number] Social History Tobacco Use Types Packs/Day Years [...] Description 06/08/2025 10:00 AM EDT Office Visit [facility] Family Medicine [address] [place] [id number] Abraham Stafford MD [address] [facility], [address] [place] [address] 07/20/2025 Procedure Pass [facility] Endoscopy Admitting Dept Virtual Department [address] [place] [address] 07/20/2025 1:00 PM EST Hospital Encounter [facility] Endoscopy Admitting Dept Virtual Department [address] [place] [address] Drew Varela MD [address] [address] 07/20/2025 1:00 PM EST - 07/20/2025 1:30 PM EST Surgery [facility] Endoscopy Admitting Dept Virtual Department [address] [place] [address] Drew Varela MD [address] [address] COLONOSCOPY 11/29/2025 10:20 AM EDT Office Visit [facility] [address] [place] [address] 3rd Floor, [address] [place] [address] Danish Grace MD [address] [place] [address], [address] [place] [address] [email or web address] Scheduled Procedures Name Priority Associated Diagnoses Date/Ti me COLONOSCOPY Family history of colon cancer Hx of colonic polyps 07/20/2025 1:00 PM EST documented as of this encounter Visit Diagnoses Not on filedocumented in this encounter Additional Health Concerns Assessment Noted Time PHQ-2 Depression Total Score: 0 10/23/19 11:07 AM EST documented as of this encounter Care Teams Casey Saw Operator Relationship Specialty Start Date End Date Freddie Granados MD [address] [place] [address], [address] [place] [address] PCP - General Internal Medicine 01/04/21 05/20/21 Abraham Stafford MD [address] [place] [address], [address] [place] [address] [email or web address] PCP - General Internal Medicine 05/21/21 Susanna Solo DO [address] [place] [address] [email or web address] Insurance Assigned Provider 05/28/19 12/07/21 Abraham Stafford MD [address] [place] [address], [address] [place] [address] [email or web address] Insurance Assigned Provider 12/05/23 documented as of this encounter Additional Source Comments The information contained in this document represents components of the legal health record. It is not the complete legal health record.[facility]
--- OUTSIDE RECORDS SUMMARY | 2025-06-01 14:19 | XMS_ITS | Encounter Summary ---
Author Organization [facility] Address [address] [facility] [address] [place] [address] Phone Care Team Providers Care Product Steward Name Role Phone Susanna Solo DO Primary Care Provider [phone] Susanna Solo DO Unavailable [phone] Chasidy Diop RN Unavailable [email or web address] Abraham Stafford MD Primary Care Provider [phone] Freddie Granados MD Primary Care Provider [phone] Abraham Stafford MD Primary Care Provider [phone] Abraham Stafford MD Unavailable [phone] Encounter Details Date Type Department Care Team (Latest Contact Info) Description 09/30/2019 Transcribe Orders [facility] Laboratory [address] [place], [place] [phone] Laureen Alonzo MD [address] [place] [address], [address] [place] [address] [email or web address] Hyperkalemia (Primary Dx); Essential hypertension, malignant Social [...] Description 06/08/2025 10:00 AM EDT Office Visit [address] [place] [address] Abraham Stafford MD [address] [place] [address], [address] [place] [address] 07/20/2025 Procedure Pass [facility] Endoscopy Admitting Dept Virtual Department [address] [place] [address] 07/20/2025 1:00 PM EST Hospital Encounter [facility] Endoscopy Admitting Dept Virtual Department [address] [place] [address] Drew Varela MD [address] [place] [address] 07/20/2025 1:00 PM EST - 07/20/2025 1:30 PM EST Surgery [facility] Endoscopy Admitting Dept Virtual Department [address] [place] [address] Drew Varela MD [address] [place] [address] COLONOSCOPY 11/29/2025 10:20 AM EDT Office Visit [facility] [address] [place] [address] 3rd Floor, [address] [place] [address] Danish Grace MD [address] [place] [address], [address] [place] [address] Scheduled Procedures Name Priority Associated Diagnoses Date/Ti me COLONOSCOPY Family history of colon cancer Hx of colonic polyps 07/20/2025 1:00 PM EST documented as of this encounter Results * Renin (10/03/2019 11:45 AM EST) RENIN ACTIVITY 3.7 ng/ml/h [facility] Comment: (NOTE) REFERENCE VALUE (Peripheral vein specimen) Na-deplete, upright: Mean: 5.9 Range: 2.9-10.8 Na-replete, upright: Mean: 1.0 Range: < or =0.6-3.0 ADDITIONAL INFORMATION Testing performed by Liquid Chromatography-Tandem Mass Spectrometry (LC-MS/MS). This test was developed and its performance characteristics determined by [facility] in a manner consistent with CLIA requirements. This test has not been cleared or approved by the U.S. Food and Drug Administration. Blood 10/03/2019 11:4 5 AM EST 10/03/2019 11:54 AM EST us Laureen Alonzo MD LAB BLOOD ORDERABLES Final Re sult [facility] [address] [place] [address] * Aldosterone (09/30/2019 1:01 PM EST) ALDOSTERONE <4.0 <=21 ng/dL [facility] Comment: (NOTE) ADDITIONAL INFORMATION Reference range for patients 11 years and older is based on upright A.M. collection from subjects without sodium restrictions. This test was developed and its performance characteristics determined by [facility] in a manner consistent with CLIA requirements. This test has not been cleared or approved by the U.S. Food and Drug Administration. Blood 09/30/2019 1:01 PM EST 09/30/2019 1:03 PM EST Laureen Alonzo MD LAB BLOOD ORDERABLES Final Re sult [facility] [address] [place] [address] * TOTAL PROTEIN CREATININE RATIO, RANDOM URINE (09/30/2019 1:01 PM EST) URINE TOTAL PROTEIN 11.8 mg/dL [facility] URINE CREATININE 179 mg/dL [facility] URINE TP CRE RATIO 0.07 0 - 0.19 [facility] Urine (Urine) 09/30/2019 1:0 1 PM EST 09/30/2019 1:04 PM EST Laureen Alonzo MD URINE ORDERABLES Final Result Performing Organization Address City/[facility]/ZIP Co de Phone Number [address] [address] * (ABNORMAL) CBC (09/30/2019 1:01 PM EST) WBC 5.68 3.40 - 11.20 K/uL [facility] RBC 4.13(L) 4.50 - 5.50 M/uL [facility] HGB 13.8 13.0 - 17.0 g/dL [facility] HCT 39.8(L) 40.0 - 51.0 % [facility] PLT 189 130 - 400 K/uL [facility] MCV 96.4 79.0 - 98.0 [facility] MCH 33.4 27.0 - 34.8 pg [facility] MCHC 34.7 31.5 - 36.0 g/dL [facility] RDW 13.0 10.8 - 14.6 % [facility] MPV 12.1 9.4 - 12.4 [facility] NRBC 0.00 0.00 /100 WBCs [facility] ABSOLUTE NRBC 0.00 0.00 K/uL [facility] Blood 09/30/2019 1:01 PM EST 09/30/2019 1:04 PM EST Laureen Alonzo MD LAB BLOOD ORDERABLES Final Re sult [address] [address] * Parathyroid hormone (PTH) (09/30/2019 1:01 PM EST) PARATHYROID HORMONE 23 15 - 65 pg/mL [facility] Blood 09/30/2019 1:01 PM EST 09/30/2019 1:04 PM EST Laureen Alonzo MD LAB BLOOD ORDERABLES Final Re sult Performing Organization Address [facility] Co de Phone Number [address] [address] * (ABNORMAL) Renal panel (09/30/2019 1:01 PM EST) SODIUM 138 133 - 146 mmol/L [facility] POTASSIUM 4.5 3.3 - 5.1 mmol/L [facility] CHLORIDE 100 96 - 108 mmol/L [facility] CO2 25 21 - 35 mmol/L [facility] GLUCOSE 154(H) 70 - 99 mg/dL [facility] BUN 19 6 - 19 mg/dL [facility] CREATININE 1.40 0.5 - 1.5 mg/dL [facility] CALCIUM 9.6 8.4 - 10.3 mg/dL [facility] PHOSPHORUS 2.9 2.7 - 4.5 mg/dL [facility] ALBUMIN 4.1 3.9 - 4.8 g/dL [facility] EGFR 50(L) >59 mL/min/1.7 3m2 [facility] Comment:If patient is black, multiply result by 1.159. Estimated glomerular filtration rate calculated using the CKD-EPI equation. ANION GAP 18 10 - 20 mmol/L [facility] Blood 09/30/2019 1:01 PM EST 09/30/2019 1:04 PM EST Laureen Alonzo MD LAB BLOOD ORDERABLES Final Re sult [facility] Organization Address City/State/ZIP Co de Phone Number [facility] [address] [place] [address] documented in this encounter Visit Diagnoses Diagnosis Hyperkalemia- Primary Hyperpotassemia Essential hypertension, malignant Family history of colon cancer Family history of malignant neoplasm of gastrointestinal tract Hx of colonic polyps Personal history of colonic polyps documented in this encounter Care Teams Product Steward Relationship Specialty Start Date End Date Susanna Solo DO [address] [place] [address] [email or web address] PCP - General Family Medicine 09/03/18 01/02/21 Abraham Stafford MD [address] [place] [address], [address] [place] [address] [email or web address] PCP - General Internal Medicine 01/03/21 01/03/21 Freddie Granados MD [address] [place] [address], [address] [place] [address] PCP - General Internal Medicine 01/04/21 05/20/21 Abraham Stafford MD [address] [place] [address], [address] [address] [email or web address] PCP - General Internal Medicine 05/21/21 Susanna Solo DO [address] [place] [address] [email or web address] Insurance Assigned Provider 05/28/19 12/07/21 Chasidy Diop, MAINE [address] [place] [address] [email or web address] Veterinary Parasitologist 10/28/19 11/01/19 Abraham Stafford MD [address] [place] [address], [address] [place] [address] [email or web address] Insurance Assigned Provider 12/05/23 documented as of this encounter Additional Source Comments The information contained in this document represents components of the legal health record. It is not the complete legal health record.[facility]
--- OUTSIDE RECORDS SUMMARY | 2025-06-01 14:19 | XMS_ITS | Encounter Summary ---
Author Organization [facility] Address [address] [place] [address] Phone Care Team Providers Care Security Systems Administrator Name Role Phone Susanna Solo DO Primary Care Provider [phone] Susanna Solo DO Unavailable [phone] Abraham Stafford MD Primary Care Provider [phone] Freddie Granados MD Primary Care Provider + [phone] Abraham Stafford MD Primary Care Provider [phone] Abraham Stafford MD Unavailable [phone] Reason for Visit * Reason Onset Date Comments schedule Cardiac rehab intake 03/13/2020 Encounter Details Date Type Department Care Team (Late st Contact Info) Description 03/15/2020 Telephone [facility] Cardiopulmonary Rehabilitation [address] [place], [place] [phone] Veronica Lau RN [email or web address] Cardiac rehab [...] Description 06/08/2025 10:00 AM EDT Office Visit [facility] [address] [place] [address] Abraham Stafford MD [address] [place] [address], [address] [place] [address] 07/20/2025 Procedure Pass [facility] Endoscopy Admitting Dept Virtual Department [address] [place] [address] 07/20/2025 1:00 PM EST Hospital Encounter [facility] Endoscopy Admitting Dept Virtual Department [address] [place] [address] Drew Varela MD [address] [place] [address] 07/20/2025 1:00 PM EST - 07/20/2025 1:30 PM EST Surgery [facility] Endoscopy Admitting Dept Virtual Department [address] [place] [address] Drew Varela MD [address] [place] [address] COLONOSCOPY 11/29/2025 10:20 AM EDT Office Visit [facility] [address] [place] [address] 3rd Floor, [address] [place] [address] Danish Grace MD [address] [place] [address], [address] [place] [address] Scheduled Procedures Name Priority Associated Diagnoses Date/Ti me COLONOSCOPY Family history of colon cancer Hx of colonic polyps 07/20/2025 1:00 PM EST documented as of this encounter Visit Diagnoses Not on filedocumented in this encounter Care Teams Security Systems Administrator Relationship Specialty Start Date End Date Susanna Solo DO [address] [place] [address] [email or web address] PCP - General Family Medicine 09/03/18 01/02/21 Abraham Stafford MD [address] [place] [address], [address] [place] [address] [email or web address] PCP - General Internal Medicine 01/03/21 01/03/21 Freddie Granados MD [address] [place] [address], [address] [place] [address] PCP - General Internal Medicine 01/04/21 05/20/21 Abraham Stafford MD [address] [place] [address], [address] [place] [address] PCP - General Internal Medicine 05/21/21 Susanna Solo DO [address] [place] [address] [email or web address] Insurance Assigned Provider 05/28/19 12/07/21 Abraham Stafford MD [address] [place] [address], [address] [place] [id number] Insurance Assigned Provider 12/05/23 documented as of this encounter Additional Source Comments The information contained in this document represents components of the legal health record. It is not the complete legal health record.[facility]
--- OUTSIDE RECORDS SUMMARY | 2025-06-01 14:19 | XMS_ITS | Encounter Summary ---
Author Organization [facility] Address [address] [place] [address] [place] [address] Phone Care Team Providers Care E Commerce Merchandising Coordinator Name Role Phone EdilSusanna Mary DO Unavailable [phone] Abraham Stafford MD Primary Care Provider [phone] Abraham Stafford MD Unavailable [phone] Encounter Details Date Type Department Care Team (Late st Contact Info) Description 11/20/2021 Prep for Surgery [facility] Medicine [address] [place] [address] Mindy Mcleod MD [address] [place] [address] Orthopedics & Sports Medicine, [facility] [place] [address] [email or web address] Social History Tobacco Use Types Packs/Day Years [...] Description 06/08/2025 10:00 AM EDT Office Visit [address] [place] [address] Abraham Stafford MD [address] [place] [address], [address] [place] [address] [email or web address] 07/20/2025 Procedure Pass [facility] Admitting Dept Virtual Department 30 [place] [address] 07/20/2025 1:00 PM EST Hospital Encounter [facility] Admitting [facility] Virtual Department 30 [place] [address] Drew Varela MD 10 [facility] 2 [place] [address] 07/20/2025 1:00 PM EST - 07/20/2025 1:30 PM EST Surgery [facility] Endoscopy Admitting Dept Virtual Department 30 [place] [address] Drew Varela MD [address] [address] [email or web address] COLONOSCOPY 11/29/2025 10:20 AM EDT Office Visit [facility] [address] [place] [address] 3rd Floor, [address] [place] [address] Danish Grace MD [address] [place] [address], [address] [place] [address] [email or web address] Scheduled Procedures Name Priority Associated Diagnoses Date/Ti me COLONOSCOPY Family history of colon cancer Hx of colonic polyps 07/20/2025 1:00 PM EST documented as of this encounter Visit Diagnoses Not on filedocumented in this encounter Additional Health Concerns Assessment Noted Time PHQ-2 Depression Total Score: 0 06/20/20 21 3:03 PM EDT documented as of this encounter Care Teams E Commerce Merchandising Coordinator Relationship Specialty Start Date End Date Abraham Stafford MD [address] [place] [address], [address] [place] [address] [email or web address] PCP - General Internal Medicine 05/21/21 Susanna Solo DO [address] [place] [address] [email or web address] Insurance Assigned Provider 05/28/19 12/07/21 Abraham Stafford MD [address] [place] [address], [address] [place] [address] [email or web address] Insurance Assigned Provider 12/05/23 documented as of this encounter Additional Source Comments The information contained in this document represents components of the legal health record. It is not the complete legal health record.[facility]
--- OUTSIDE RECORDS SUMMARY | 2025-06-01 14:19 | XMS_ITS | Encounter Summary ---
Author Organization [facility] Address [address] [place] [address] Phone Care Team Providers Care Transfer Driver Name Role Phone Edil Susanna Mary DO Unavailable [phone] Freddie Granados MD Primary Care Provider + [phone] Abraham Stafford MD Primary Care Provider [phone] Abraham Stafford MD Unavailable [phone] Encounter Details Date Type Department Care Team (Late st Contact Info) Description 02/12/2021 Ancillary Orders [facility] [address] [facility] 3rd Floor, [address] [place] [address] Danisha You MD [address] [place] [id number] [email or web address] Social History Tobacco Use Types Packs/Day [...] 10:00 AM EDT Office Visit [facility] [address] [place] [address] [place] [address] Abraham Stafford MD [address] [place] [address], [address] [place] [address] 07/20/2025 Procedure Pass [facility] Endoscopy Admitting Dept Virtual Department 30 [place] [address] 07/20/2025 1:00 PM EST Hospital Encounter [facility] Endoscopy Admitting Dept Virtual Department 30 [place] [address] Drew Varela MD 10 [facility] 2 [place] [address] 07/20/2025 1:00 PM EST - 07/20/2025 1:30 PM EST Surgery [facility] Endoscopy Admitting Dept Virtual Department 30 [place] [address] Drew Varela MD [address] [address] COLONOSCOPY 11/29/2025 10:20 AM EDT Office Visit [facility] [address] [place] [address] 3rd Floor, [address] [place] [address] Danish Grace MD [address] [place] [address], [address] [place] [address] [email or web address] Scheduled Procedures Name Priority Associated Diagnoses Date/Ti me COLONOSCOPY Family history of colon cancer Hx of colonic polyps 07/20/2025 1:00 PM EST documented as of this encounter Visit Diagnoses Not on filedocumented in this encounter Additional Health Concerns Assessment Noted Time PHQ-2 Depression Total Score: 0 10/23/19 21 11:07 AM EST documented as of this encounter Care Teams Transfer Driver Relationship Specialty Start Date End Date Freddie Granados MD [address] [place] [address], [address] [place] [address] PCP - General Internal Medicine 01/04/21 05/20/21 Abraham Stafford MD [address] [place] [address], [address] [place] [address] PCP - General Internal Medicine 05/21/21 Susanna Solo DO [address] [place] [address] [email or web address] Insurance Assigned Provider 05/28/19 12/07/21 Abraham Stafford MD [address] [place] [address], [address] [place] [address] Insurance Assigned Provider 12/05/23 documented as of this encounter Additional Source Comments The information contained in this document represents components of the legal health record. It is not the complete legal health record.[facility]
--- OUTSIDE RECORDS SUMMARY | 2025-06-01 14:19 | XMS_ITS | Encounter Summary ---
Author Organization [facility] Address [address] [facility] [address] [place] [address] Phone Care Team Providers Care Sports Psychologist Name Role Phone Susanna Solo DO Primary Care Provider + [phone] Susanna Solo DO Unavailable [phone] Abraham Stafford MD Primary Care Provider [phone] Freddie Granados MD Primary Care Provider + [phone] Abraham Stafford MD Primary Care Provider [phone] Abraham Stafford MD Unavailable [phone] Encounter Details Date Type Department Care Team (Late st Contact Info) Description 11/13/2020 Procedure Pass Non-Invasive Cardiology [address] [place] [address] Social History Tobacco Use Types Packs/Day Years [...] 06/08/2025 10:00 AM EDT Office Visit [facility] [address] [place] [address] Abraham Stafford MD [address] [place] [address], [address] [place] [address] 07/20/2025 Procedure Pass [facility] Endoscopy Admitting Dept Virtual Department [address] [place] [address] 07/20/2025 1:00 PM EST Hospital Encounter [facility] Endoscopy Admitting Dept Virtual Department 30 [place] [address] Drew Varela MD [address] [address] 07/20/2025 1:00 PM EST - 07/20/2025 1:30 PM EST Surgery [facility] Endoscopy Admitting Dept Virtual Department [address] [place] [address] Drew Varela MD [address] [address] [email or web address] COLONOSCOPY 11/29/2025 10:20 AM EDT Office Visit [facility] [address] [place] [address] 3rd Floor, [address] [place] [address] Danish Grace MD [address] [place] [address], [address] [place] [address] [email or web address] Scheduled Procedures Name Priority Associated Diagnoses Date/Ti me COLONOSCOPY Family history of colon cancer Hx of colonic polyps 07/20/2025 1:00 PM EST documented as of this encounter Visit Diagnoses Not on filedocumented in this encounter Additional Health Concerns Assessment Noted Time PHQ-2 Depression Total Score: 0 06/20/20 3:03 PM EDT documented as of this encounter Care Teams Sports Psychologist Relationship Specialty Start Date End Date Susanna Solo DO [address] [place] [address] [email or web address] PCP - General Family Medicine 09/03/18 01/02/21 Abraham Stafford MD [address] [place] [address], [address] [place] [address] [email or web address] PCP - General Internal Medicine 01/03/21 01/03/21 Freddie Granados MD [address] [place] [address], [address] [place] [address] PCP - General Internal Medicine 01/04/21 05/20/21 Abraham Stafford MD [address] [place] [address], [address] [place] [address] PCP - General Internal Medicine 05/21/21 Susanna Solo DO [address] [place] [address] [email or web address] Insurance Assigned Provider 05/28/19 12/07/21 Abraham Stafford MD [address] [place] [address], [address] [place] [address] Insurance Assigned Provider 12/05/23 documented as of this encounter Additional Source Comments The information contained in this document represents components of the legal health record. It is not the complete legal health record.[facility]
--- OUTSIDE RECORDS SUMMARY | 2025-06-01 14:19 | XMS_ITS | Encounter Summary ---
Author Organization [facility] Address [address] [place] [address] Phone Care Team Providers Care Fuller Brush Man Name Role Phone Susanna Solo DO Primary Care Provider [phone] Susanna Solo DO Unavailable [phone] Abraham Stafford MD Primary Care Provider [phone] Freddie Granados MD Primary Care Provider + [phone] Abraham Stafford MD Primary Care Provider [phone] Abraham Stafford MD Unavailable [phone] Reason for Referral * Consultation (Routine) - Closed Specialty Diagnoses / Procedures Referred By Contlin t Referred To Contact Cardiac Rehabilitation Diagnoses S/P CABG x 1 Corazon Pink NP [address] [facility] [place] [address] Phone: tel: fax: [facility] 30 [place] [address] Phone: tel: Referral ID Status Reason Start Date Expiration Date Visits Re quested Visits Authorized [id number] Closed 11/08/2019 11/07/2020 1 1 Encounter Details Date Type Department Care Team (Late st Contact Info) Description 11/08/2019 Transcribe Orders [facility] Department 30 [place] [address] Corazon Pink NP [address] [facility] [place] [address] S/P CABG x 1 (Primary Dx) Social [...] Description 06/08/2025 10:00 AM EDT Office Visit [address] [address] Abraham Stafford MD [address] [place] [address], [address] [place] [address] 07/20/2025 Procedure Pass [facility] Endoscopy Admitting Dept Virtual Department [address] [place] [address] 07/20/2025 1:00 PM EST Hospital Encounter [facility] Endoscopy Admitting Dept Virtual Department [address] [place] [address] Drew Varela MD [address] [place] [address] 07/20/2025 1:00 PM EST - 07/20/2025 1:30 PM EST Surgery [facility] Endoscopy Admitting Dept Virtual Department [address] [place] [address] Drew Varela MD [address] [place] [address] COLONOSCOPY 11/29/2025 10:20 AM EDT Office Visit [facility] [address] [place] [address] 3rd Floor, [address] [place] [address] Danish Grace MD [address] [place] [address], [address] [place] [address] Scheduled Procedures Name Priority Associated Diagnoses Date/Ti me COLONOSCOPY Family history of colon cancer Hx of colonic polyps 07/20/2025 1:00 PM EST Scheduled Referrals Name Type Priority Associated Diagnoses Order Schedule Ambulatory referral to [facility] Cardiac Rehab Outpatient Referral Routine S/P CABG x 1 Ordered: 11/08/2019 documented as of this encounter Visit Diagnoses Diagnosis 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 Family history of colon cancer Family history of malignant neoplasm of gastrointestinal tract Hx of colonic polyps Personal history of colonic polyps documented in this encounter Care Teams Fuller Brush Man Relationship Specialty Start Date End Date Susanna Solo DO [address] [place] [address] [email or web address] PCP - General Family Medicine 09/03/18 01/02/21 Abraham Stafford MD [address] [place] [address], [address] [address] PCP - General Internal Medicine 01/03/21 01/03/21 Freddie Granados MD [address] [place] [address], [address] [place] [address] PCP - General Internal Medicine 01/04/21 05/20/21 Abraham Stafford MD [address] [place] [address], [address] [place] [address] PCP - General Internal Medicine 05/21/21 Susanna Solo DO 9 [place] [address] [email or web address] Insurance Assigned Provider 05/28/19 12/07/21 Abraham Stafford MD [address] [place] [address], [address] [place] [address] [email or web address] Insurance Assigned Provider 12/05/23 documented as of this encounter Additional Source Comments The information contained in this document represents components of the legal health record. It is not the complete legal health record.[facility]
--- OUTSIDE RECORDS SUMMARY | 2025-06-01 14:20 | XMS_ITS | Encounter Summary ---
Author Organization [facility] Address [address] [place] [address] [place] [address] Phone Care Team Providers Care Soft Work Wrapper Layer And Examiner Name Role Phone Bony Wang MD Primary Care Provide r Bony Wang MD Unavailable [phone] Susanna Solo DO Primary Care Provider + [phone] Susanna Solo DO Unavailable [phone] Chasidy Diop RN Unavailable [email or web address] Abraham Stafford MD Primary Care Provider [phone] Freddie Granados MD Primary Care Provider [phone] Abraham Stafford MD Primary Care Provider [phone] Abraham Stafford MD Unavailable [phone] Encounter Details Date Type Department Care Team (Latest Contact Info) Description 10/27/2017 Transcribe Orders [facility] Laboratory 30 [place] [address] Kellee Hadley MD [address] [place], [place] [id number] Acute osteomyelitis of metatarsal bone of right [...] Description 06/08/2025 10:00 AM EDT Office Visit [address] [address] Abraham Stafford MD 22 [facility], [address] [place] [address] 07/20/2025 Procedure Pass [facility] Endoscopy Admitting Dept Virtual Department [address] [place] [address] 07/20/2025 1:00 PM EST Hospital Encounter [facility] Endoscopy Admitting Dept Virtual Department [address] [place] [address] Drew Varela MD [address] [place] [address] 07/20/2025 1:00 PM EST - 07/20/2025 1:30 PM EST Surgery [facility] Endoscopy Admitting Dept Virtual Department [address] [place] [address] Drew Varela MD [address] [place] [address] COLONOSCOPY 11/29/2025 10:20 AM EDT Office Visit [facility] [address] [place] [address] 3rd Floor, [address] [place] [address] Danish Grace MD [address] [place] [address], [address] [place] [address] Scheduled Procedures Name Priority Associated Diagnoses Date/Ti me COLONOSCOPY Family history of colon cancer Hx of colonic polyps 07/20/2025 1:00 PM EST documented as of this encounter Results * Vancomycin, trough (10/27/2017 6:14 PM EST) VANCOMYCIN,TROU GH 15.9 10.0 - 20.0 ug/mL [facility] Comment: Interpretation: Therapeutic Range: 10.0 - 20.0 ug/ml. Toxic: Greater than 30.0 ug/ml. Blood 10/27/2017 6:14 PM EST 10/27/2017 6:16 PM EST us Kellee Hadley MD LAB BLOOD ORDERABLES Final Result [address] [address] * Creatinine/eGFR (10/27/2017 6:14 PM EST) CREATININE 1.10 0.5 - 1.5 mg/dL [facility] EGFR >60 >60 mL/min/1.7 3m2 [facility] Comment:Abnormal if <60. If patient is -Peruvian, multiply the result by 1.21. Blood 10/27/2017 6:14 PM EST 10/27/2017 6:16 PM EST us Kellee Hadley MD LAB BLOOD ORDERABLES Final Result Performing Organization Address City/[facility]/ZIP Co de Phone Number [address] [address] * (ABNORMAL) BUN (10/27/2017 6:14 PM EST) BUN 22(H) 6 - 19 mg/dL [facility] Blood 10/27/2017 6:14 PM EST 10/27/2017 6:16 PM EST us Kellee Hadley MD LAB BLOOD ORDERABLES Final Result [address] [address] * (ABNORMAL) CBC and differential (10/27/2017 6:14 PM EST) WBC 7.24 3.40 - 11.20 K/uL [facility] RBC 4.05(L) 4.50 - 5.50 M/uL [facility] HGB 12.9(L) 13.0 - 17.0 g/dL [facility] HCT 36.7(L) 40.0 - 51.0 % [facility] PLT 259 130 - 400 K/uL [facility] MCV 90.6 79.0 - 98.0 fL [facility] MCH 31.9 27.0 - 34.8 pg [facility] MCHC 35.1 31.5 - 36.0 g/dL [facility] RDW 13.3 10.8 - 14.6 % [facility] MPV 9.8 9.4 - 12.4 fl [facility] NRBC 0.00 /100 WBCs [facility] ABSOLUTE NRBC 0.00 K/uL [facility] DIFF METHOD Auto [facility] NEUTS 52.9 45.30 - 77.70 % [facility] LYMPHS 26.5 12.30 - 39.70 % [facility] MONOS 15.1(H) 4.10 - 12.80 % [facility] EOS 4.4 0 - 7.2 % [facility] BASOS 0.8 0 - 2.80 % [facility] Granulocytes, immature (%) 0.3 0.0 - 0.9 % [facility] ABSOLUTE NEUTS 3.83 1.40 - 7.70 K/uL [facility] ABSOLUTE LYMPHS 1.92 0.60 - 3.20 K/uL [facility] ABSOLUTE MONOS 1.09(H) 0.11 - 0.59 K/uL [facility] ABSOLUTE EOS 0.32 0.01 - 0.50 K/uL [facility] ABSOLUTE BASOS 0.06 0.00 - 0.08 K/uL [facility] Granulocytes, immature 0.02 0.00 - 0.05 K/uL [facility] Blood 10/27/2017 6:14 PM EST 10/27/2017 6:16 PM EST us Kellee Chandler Jaworek MD LAB BLOOD ORDERABLES Final Result Performing Organization Address [facility]/ZIP Co de Phone Number [address] [address] * (ABNORMAL) LFTs (hepatic panel) (10/27/2017 6:14 PM EST) ALKALINE PHOSPHATASE 128(H) 39 - 117 U/L [facility] TOTAL BILIRUBIN 0.4 0 - 1.2 mg/dL [facility] DIRECT BILIRUBIN <0.2 0 - 0.3 mg/dL [facility] Bilirubin (Indirect) NOT CALCULATED 0 - 1.5 mg/dL [facility] AST 17 0 - 37 U/L [facility] ALT 13 0 - 40 U/L [facility] TOTAL PROTEIN 7.0 6.5 - 8.0 g/dL [facility] ALBUMIN 3.5(L) 3.9 - 4.8 g/dL [facility] GLOBULIN 3.5 1 - 4.8 g/dL [facility] A/G Ratio 1.00 1.00 - 4.80 RATIO [facility] Blood 10/27/2017 6:14 PM EST 10/27/2017 6:16 PM EST Kellee Hadley MD LAB BLOOD ORDERABLES Final Result Performing Organization Address [facility] Co de Phone Number [address] [address] documented in this encounter Visit Diagnoses Diagnosis Acute osteomyelitis of metatarsal bone of right foot- Primary Family history of colon cancer Family history of malignant neoplasm of gastrointestinal tract Hx of colonic polyps Personal history of colonic polyps documented in this encounter Care Teams Soft Work Wrapper Layer And Examiner Relationship Specialty Start Date End Date Bony Wang MD [email or web address] PCP - General 06/18/17 09/02/18 Susanna Solo DO [address] [place] [address] [email or web address] PCP - General Family Medicine 09/03/18 01/02/21 Abraham Stafford MD [address] [place] [address], [address] [place] [address] [email or web address] PCP - General Internal Medicine 01/03/21 01/03/21 Freddie Granados MD [address] [place] [address], [address] [place] [address] [email or web address] PCP - General Internal Medicine 01/04/21 05/20/21 Abraham Stafford MD [address] [place] [address], [address] [place] [address] [email or web address] PCP - General Internal Medicine 05/21/21 Bony Wang MD [address] [place] [address] Floor 1 [place] [address] [email or web address] Insurance Assigned Provider 11/28/17 05/28/19 Susanna Solo DO [address] [place] [address] [email or web address] Insurance Assigned Provider 05/28/19 12/07/21 Chasidy Diop, MAINE [address] [place] [address] [email or web address] 10/28/19 11/01/19 Abraham Stafford MD [address] [place] [address], [address] [place] [address] [email or web address] Insurance Assigned Provider 12/05/23 documented as of this encounter Additional Source Comments The information contained in this document represents components of the legal health record. It is not the complete legal health record.[facility]
--- OUTSIDE RECORDS SUMMARY | 2025-06-01 14:20 | XMS_ITS | Encounter Summary ---
Author Organization [facility] Address [address] [facility] [address] [place] [address] Phone Care Team Providers Care Cytology Supervisor Name Role Phone Bony Wang MD Primary Care Provide r Bony Wang MD Unavailable [phone] Susanna Solo DO Primary Care Provider + [phone] Susanna Solo DO Unavailable [phone] Chasidy Diop RN Unavailable [email or web address] Abraham Stafford MD Primary Care Provider [phone] Freddie Granados MD Primary Care Provider [phone] Abraham Stafford MD Primary Care Provider [phone] Abraham Stafford MD Unavailable [phone] Encounter Details Date Type Department Care Team (Latest Contact Info) Description 11/24/2017 Transcribe Orders [facility] Specimen Processing [address] [place] [address] Kellee Hadley MD [address] [place], [place] [id number] Osteomyelitis of right foot, unspecified type (Primary [...] Description 06/08/2025 10:00 AM EDT Office Visit [address] [address] Abraham Stafford MD 22 [facility], [address] [place] [address] 07/20/2025 Procedure Pass [facility] Endoscopy Admitting Dept Virtual Department [address] [place] [address] 07/20/2025 1:00 PM EST Hospital Encounter [facility] Endoscopy Admitting Dept Virtual Department [address] [place] [address] Drew Varela MD [address] [place] [address] 07/20/2025 1:00 PM EST - 07/20/2025 1:30 PM EST Surgery [facility] Endoscopy Admitting Dept Virtual Department [address] [place] [address] Drew Varela MD [address] [place] [address] COLONOSCOPY 11/29/2025 10:20 AM EDT Office Visit [facility] [address] [place] [address] 3rd Floor, [address] [place] [address] Danish Grace MD [address] [place] [address], [address] [place] [address] Scheduled Procedures Name Priority Associated Diagnoses Date/Ti me COLONOSCOPY Family history of colon cancer Hx of colonic polyps 07/20/2025 1:00 PM EST documented as of this encounter Results * Vancomycin, trough (11/24/2017 8:55 AM EDT) VANCOMYCIN,TROU GH 11.0 10.0 - 20.0 ug/mL [facility] Comment: Interpretation: Therapeutic Range: 10.0 - 20.0 ug/ml. Toxic: Greater than 30.0 ug/ml. Blood 11/24/2017 8:55 AM EDT 11/24/2017 9:46 AM EDT us Kellee Hadley MD LAB BLOOD ORDERABLES Final Result Performing Organization Address City/[facility]/ZIP Co de Phone Number [address] [address] * (ABNORMAL) BUN (11/24/2017 8:55 AM EDT) BUN 20(H) 6 - 19 mg/dL [facility] Blood 11/24/2017 8:55 AM EDT 11/24/2017 9:46 AM EDT Kellee Hadley MD LAB BLOOD ORDERABLES Final Result Performing Organization Address [facility] Co de Phone Number [address] [address] * Creatinine/eGFR (11/24/2017 8:55 AM EDT) CREATININE 1.00 0.5 - 1.5 mg/dL [facility] EGFR 76 >59 mL/min/1.7 3m2 [facility] Comment:If patient is black, multiply result by 1.159. The eGFR calculation has changed from the MDRD equation to the CKD-EPI equation as of November 03, 2017. Blood 11/24/2017 8:55 AM EDT 11/24/2017 9:46 AM EDT us Kellee Hadley MD LAB BLOOD ORDERABLES Final Result Performing Organization Address City/[facility]/ZIP Co de Phone Number [address] [place] [address] * Sedimentation rate (ESR) (11/24/2017 8:55 AM EDT) ESR 12 0 - 20 mm/h [facility] Blood 11/24/2017 8:55 AM EDT 11/24/2017 9:46 AM EDT us Kellee Hadley MD LAB BLOOD ORDERABLES Final Result [address] [address] * (ABNORMAL) CBC and differential (11/24/2017 8:55 AM EDT) WBC 6.15 3.40 - 11.20 K/uL [facility] RBC 4.62 4.50 - 5.50 M/uL [facility] HGB 14.6 13.0 - 17.0 g/dL [facility] HCT 42.7 40.0 - 51.0 % [facility] PLT 171 130 - 400 K/uL [facility] MCV 92.4 79.0 - 98.0 fL [facility] MCH 31.6 27.0 - 34.8 pg [facility] MCHC 34.2 31.5 - 36.0 g/dL [facility] RDW 13.6 10.8 - 14.6 % [facility] MPV 10.8 9.4 - 12.4 fl [facility] NRBC 0.00 /100 WBCs [facility] ABSOLUTE NRBC 0.00 K/uL [facility] DIFF METHOD Auto [facility] NEUTS 57.0 45.30 - 77.70 % [facility] LYMPHS 25.0 12.30 - 39.70 % [facility] MONOS 13.5(H) 4.10 - 12.80 % [facility] EOS 3.4 0 - 7.2 % [facility] BASOS 0.8 0 - 2.80 % [facility] Granulocytes, immature (%) 0.3 0.0 - 0.9 % [facility] ABSOLUTE NEUTS 3.50 1.40 - 7.70 K/uL [facility] ABSOLUTE LYMPHS 1.54 0.60 - 3.20 K/uL [facility] ABSOLUTE MONOS 0.83(H) 0.11 - 0.59 K/uL [facility] ABSOLUTE EOS 0.21 0.01 - 0.50 K/uL [facility] ABSOLUTE BASOS 0.05 0.00 - 0.08 K/uL [facility] Granulocytes, immature 0.02 0.00 - 0.05 K/uL [facility] Blood 11/24/2017 8:55 AM EDT 11/24/2017 9:46 AM EDT us Kellee Hadley MD LAB BLOOD ORDERABLES Final Result Performing Organization Address City/[facility]/ZIP Co de Phone Number [address] [address] * (ABNORMAL) LFTs (hepatic panel) (11/24/2017 8:55 AM EDT) ALKALINE PHOSPHATASE 146(H) 39 - 117 U/L [facility] TOTAL BILIRUBIN 0.8 0.0 - 1.2 mg/dL [facility] DIRECT BILIRUBIN <0.2 0 - 0.3 mg/dL [facility] Bilirubin (Indirect) NOT CALCULATED 0 - 1.5 mg/dL [facility] AST 23 0 - 37 U/L [facility] ALT 19 0 - 40 U/L [facility] TOTAL PROTEIN 7.0 6.5 - 8.0 g/dL [facility] ALBUMIN 3.8(L) 3.9 - 4.8 g/dL [facility] GLOBULIN 3.2 1 - 4.8 g/dL [facility] A/G Ratio 1.19 1.00 - 4.80 RATIO [facility] Blood 11/24/2017 8:55 AM EDT 11/24/2017 9:46 AM EDT us Kellee Hadley MD LAB BLOOD ORDERABLES Final Result Performing Organization Address City/[facility]/ZIP Co de Phone Number [address] [address] documented in this encounter Visit Diagnoses Diagnosis Osteomyelitis of right foot, unspecified type- Primary Family history of colon cancer Family history of malignant neoplasm of gastrointestinal tract Hx of colonic polyps Personal history of colonic polyps documented in this encounter Care Teams Cytology Supervisor Relationship Specialty Start Date End Date Bony Wang MD [email or web address] PCP - General 06/18/17 09/02/18 Susanna Solo DO [address] [place] [address] [email or web address] PCP - General Family Medicine 09/03/18 01/02/21 Abraham Stafford MD [address] [place] [address], [address] [place] [address] [email or web address] PCP - General Internal Medicine 01/03/21 01/03/21 Freddie Granados MD [address] [place] [address], [address] [place] [address] [email or web address] PCP - General Internal Medicine 01/04/21 05/20/21 Abraham Stafford MD [address] [place] [address], [address] [place] [address] [email or web address] PCP - General Internal Medicine 05/21/21 Bony Wang MD 22 [facility] Floor 1 [place] [address] [email or web address] Insurance Assigned Provider 11/28/17 05/28/19 Susanna Solo DO [address] [place] [address] [email or web address] Insurance Assigned Provider 05/28/19 12/07/21 Chasidy Diop, MAINE [address] [place] [address] [email or web address] Variety Performer 10/28/19 11/01/19 Abraham Stafford MD [address] [place] [address], [address] [place] [address] [email or web address] Insurance Assigned Provider 12/05/23 documented as of this encounter Additional Source Comments The information contained in this document represents components of the legal health record. It is not the complete legal health record.[facility]
--- OUTSIDE RECORDS SUMMARY | 2025-06-01 14:20 | XMS_ITS | Encounter Summary ---
Author Organization [facility] Address [address] [place] [address] Phone Care Team Providers Care Supervisor Microwave Name Role Phone Abraham Stafford MD Primary Care Provider [phone] Abraham Stafford MD Unavailable [phone] Encounter Details Date Type Department Care Team (Late st Contact Info) Description 11/22/2024 Procedure Pass [facility] [address] [place] [address] Social History Tobacco Use Types Packs/Day Years [...] 9:38 AM EST Sexual Orientation Straight 09/07/2017 9 :38 AM EST documented as of this encounter Plan of Treatment Upcoming Encounters Date Type Department Care Team (Latest Contact Info) Description 06/08/2025 10:00 AM EDT Office Visit [facility] [address] [place] [address] Abraham Stafford MD 22 [facility], [address] [place] [address] 07/20/2025 Procedure Pass [facility] Endoscopy Admitting Dept Virtual Department [address] [place] [address] 07/20/2025 1:00 PM EST Hospital Encounter [facility] Endoscopy Admitting Dept Virtual Department [address] [place] [address] Drew Varela MD [address] [address] 07/20/2025 1:00 PM EST - 07/20/2025 1:30 PM EST Surgery [facility] Endoscopy Admitting Dept Virtual Department [address] [place] [address] Drew Varela MD [address] [address] COLONOSCOPY 11/29/2025 10:20 AM EDT Office Visit [facility] [address] [place] [address] 3rd Floor, [address] [place] [address] Danish Grace MD 22 [facility], [address] [place] [address] Scheduled Procedures Name Priority Associated Diagnoses Date/Ti me COLONOSCOPY Family history of colon cancer Hx of colonic polyps 07/20/2025 1:00 PM EST documented as of this encounter Visit Diagnoses Not on filedocumented in this encounter Additional Health Concerns Assessment Noted Time PHQ-2 Depression Total Score: 0 05/09/20 1:07 PM EDT documented as of this encounter Care Teams Supervisor Microwave Relationship Specialty Start Date End Date Abraham Stafford MD [address] [place] [address], [address] [address] PCP - General Internal Medicine 05/21/21 Abraham Stafford MD [address] [place] [address], [address] [address] Insurance Assigned Provider 12/05/23 documented as of this encounter Additional Source Comments The information contained in this document represents components of the legal health record. It is not the complete legal health record.[facility]
--- OUTSIDE RECORDS SUMMARY | 2025-06-01 14:20 | XMS_ITS | Encounter Summary ---
Author Organization [facility] Address [address] [facility] [address] [place] [address] Phone Care Team Providers Care Exercise Science Instructor Name Role Phone Abraham Stafford MD Primary Care Provider [phone] Abraham Stafford MD Unavailable [phone] Reason for Visit * Reason Comments Medication Refill Encounter Details Date Type Department Care Team (Late st Contact Info) Description 03/15/2025 Refill [facility] [address] [place] [address] [place] [address] Abraham Stafford MD 22 [facility], [address] [place] [address] [email or web address] Medication Refill Social History Tobacco Use Types [...] would like it to be filled pradip, [facility] contact number [phone] contact and advise. Central Support Supervisor [employer] (Please do not reply to this user; this inbox is not monitored.) Thank you. * Essie Thorpe - 03/15/2025 1:25 PM EDT Pt called advised pt has already missed 2 doses . Please fill PRADIP Central Support Supervisor [employer] (Please do not reply to this user; [...] 05/13/2024 Abraham Stafford MD - Family Medicine [facility] > Requested f/u: Not specified Upcoming visit: 06/08/2025 Abraham Stafford MD - Family Medicine [facility] ACTIONS TAKEN BY Tara Walters [place] - Criteria met. - Checked PDMP/[place]PAT. Non-Opioid Controlled Substance Without PDMP Rx Protocol - pregabalin Renewal is at prescriber discretion. Visit in the past 12 months: Yes documented in this encounter Plan of Treatment Upcoming Encounters Date Type Department Care Team (Latest Contact Info) Description 06/08/2025 10:00 AM EDT Office Visit [facility] [address] [place] [address] [place] [address] Abraham Stafford MD [address] [place] [address], [address] [place] [address] 07/20/2025 Procedure Pass [facility] Endoscopy Admitting Dept Virtual Department [address] [place] [address] 07/20/2025 1:00 PM EST Hospital Encounter [facility] Endoscopy Admitting Dept Virtual Department [address] [place] [address] Drew Varela MD [address] [place] [address] 07/20/2025 1:00 PM EST - 07/20/2025 1:30 PM EST Surgery [facility] Endoscopy Admitting Dept Virtual Department [address] [place] [address] Drew aVrela MD [address] [place] [address] COLONOSCOPY 11/29/2025 10:20 AM EDT Office Visit [facility] [address] [place] [address] Dr 3rd Floor, [address] [place] [address] Danish Grace MD [address] [place] [address], [address] [place] [address] [email or web address] Scheduled Procedures Name Priority Associated Diagnoses Date/Ti me COLONOSCOPY Family history of colon cancer Hx of colonic polyps 07/20/2025 1:00 PM EST documented as of this encounter Visit Diagnoses Diagnosis Neuropathy Mononeuritis of unspecified site Family history of colon cancer Family history of malignant neoplasm of gastrointestinal tract Hx of colonic polyps Personal history of colonic polyps documented in this encounter Additional Health Concerns Assessment Noted Time PHQ-2 Depression Total Score: 0 05/09/20 1:07 PM EDT documented as of this encounter Care Teams Exercise Science Instructor Relationship Specialty Start Date End Date Abraham Stafford MD 22 [facility], [address] [place] [address] [email or web address] PCP - General Internal Medicine 05/21/21 Abraham Stafford MD [address] [place] [address], [address] [place] [address] [email or web address] Insurance Assigned Provider 12/05/23 documented as of this encounter Additional Source Comments The information contained in this document represents components of the legal health record. It is not the complete legal health record.[facility]
--- OUTSIDE RECORDS SUMMARY | 2025-06-01 14:20 | XMS_ITS | Encounter Summary ---
Author Organization [facility] Address [address] [facility] [address] [place] [address] Phone Care Team Providers Care Electrical Wiring Lineman Name Role Phone Abraham Stafford MD Primary Care Provider [phone] Abraham Stafford MD Unavailable [phone] Encounter Details Date Type Department Care Team (Late st Contact Info) Description 01/15/2022 Procedure Pass Non-Invasive Cardiology [address] [place] [address] Social History Tobacco Use Types Packs/Day Years [...] 06/08/2025 10:00 AM EDT Office Visit [facility] [place] [facility] [address] [place] [address] Abraham Stafford MD [address] [facility], [address] [place] [address] 07/20/2025 Procedure Pass [facility] Endoscopy Admitting Dept Virtual Department [address] [place] [address] 07/20/2025 1:00 PM EST Hospital Encounter [facility] Endoscopy Admitting Dept Virtual Department [address] [place] [address] Drew Varela MD [address] [address] 07/20/2025 1:00 PM EST - 07/20/2025 1:30 PM EST Surgery [facility] Endoscopy Admitting Dept Virtual Department [address] [place] [address] Drew Varela MD [address] [address] COLONOSCOPY 11/29/2025 10:20 AM EDT Office Visit [facility] [address] [place] [address] 3rd Floor, [address] [place] [address] Danish Grace MD [address] [place] [address], [address] [place] [address] [email or web address] Scheduled Procedures Name Priority Associated Diagnoses Date/Ti me COLONOSCOPY Family history of colon cancer Hx of colonic polyps 07/20/2025 1:00 PM EST documented as of this encounter Visit Diagnoses Not on filedocumented in this encounter Additional Health Concerns Assessment Noted Time PHQ-2 Depression Total Score: 0 06/20/20 21 3:03 PM EDT documented as of this encounter Care Teams Electrical Wiring Lineman Relationship Specialty Start Date End Date Abraham Stafford MD [address] [facility], [address] [place] [address] PCP - General Internal Medicine 05/21/21 Abraham Stafford MD [address] [facility], [address] [place] [address] [email or web address] Insurance Assigned Provider 12/05/23 documented as of this encounter Additional Source Comments The information contained in this document represents components of the legal health record. It is not the complete legal health record.[facility]
--- OUTSIDE RECORDS SUMMARY | 2025-06-01 14:20 | XMS_ITS | Encounter Summary ---
Author Organization [facility] Address [address] [facility] [address] [place] [address] Phone Care Team Providers Care Photographic Engineer Name Role Phone Susanna Solo Mary DO Unavailable [phone] Abraham Stafford MD Primary Care Provider [phone] Abraham Stafford MD Unavailable [phone] Encounter Details Date Type Department Care Team (Late st Contact Info) Description 10/14/2021 Procedure Pass Non-Invasive Cardiology [address] [place] [address] Social History Tobacco Use Types Packs/Day Years [...] 06/08/2025 10:00 AM EDT Office Visit [facility] [address] [place] [address] Abraham Stafford MD 22 [facility], [address] [place] [address] 07/20/2025 Procedure Pass [facility] Endoscopy Admitting Dept Virtual Department 30 [place] [address] 07/20/2025 1:00 PM EST Hospital Encounter [facility] Endoscopy Admitting Dept Virtual Department [address] [place] [address] Drew Varela MD [address] [address] 07/20/2025 1:00 PM EST - 07/20/2025 1:30 PM EST Surgery [facility] Endoscopy Admitting Dept Virtual Department 30 [place] [address] Drew Varela MD [address] [address] COLONOSCOPY 11/29/2025 10:20 AM EDT Office Visit [facility] [address] [place] [address] 3rd Floor, [address] [place] [address] Danish Grace MD [address] [place] [address], [address] [place] [address] [email or web address] Scheduled Procedures Name Priority Associated Diagnoses Date/Ti me COLONOSCOPY Family history of colon cancer Hx of colonic polyps 07/20/2025 1:00 PM EST documented as of this encounter Visit Diagnoses Not on filedocumented in this encounter Additional Health Concerns Assessment Noted Time PHQ-2 Depression Total Score: 0 03/12/20 22 4:11 PM EDT documented as of this encounter Care Teams Photographic Engineer Relationship Specialty Start Date End Date Abraham Stafford MD [address] [place] [address], [address] [place] [address] PCP - General Internal Medicine 05/21/21 Susanna Solo DO [address] [place] [address] [email or web address] Insurance Assigned Provider 05/28/19 12/07/21 Abraham Stafford MD [address] [place] [address], [address] [place] [address] [email or web address] Insurance Assigned Provider 12/05/23 documented as of this encounter Additional Source Comments The information contained in this document represents components of the legal health record. It is not the complete legal health record.[facility]
--- OUTSIDE RECORDS SUMMARY | 2025-06-01 14:20 | XMS_ITS | Encounter Summary ---
Author Organization [facility] Address [address] [facility] [address] [place] [address] Phone Care Team Providers Care Brine Tank Operator Name Role Phone Abraham Stafford MD Primary Care Provider [phone] Abraham Stafford MD Unavailable [phone] Encounter Details Date Type Department Care Team (Late st Contact Info) Description 12/13/2021 Procedure Pass [place] Admitting Dept - Virtual Department 30 [place] [address] Social History Tobacco Use Types Packs/Day Years [...] EDT Office Visit [facility] [address] [place] [address] Abraham Stafford MD 22 [facility], [address] [place] [address] 07/20/2025 Procedure Pass [facility] Endoscopy Admitting Dept Virtual Department 30 [place] [address] 07/20/2025 1:00 PM EST Hospital Encounter [facility] Endoscopy Admitting Dept Virtual Department 30 [place] [address] Drew Varela MD [address] [address] 07/20/2025 1:00 PM EST - 07/20/2025 1:30 PM EST Surgery [facility] Endoscopy Admitting Dept Virtual Department 30 [place] [address] Drew Varela MD [address] [address] COLONOSCOPY 11/29/2025 10:20 AM EDT Office Visit [facility] [address] [place] [address] 3rd Floor, [address] [place] [address] Danish Grace MD [address] [place] [address], [address] [address] [email or web address] Scheduled Procedures Name Priority Associated Diagnoses Date/Ti me COLONOSCOPY Family history of colon cancer Hx of colonic polyps 07/20/2025 1:00 PM EST documented as of this encounter Visit Diagnoses Not on filedocumented in this encounter Additional Health Concerns Assessment Noted Time PHQ-2 Depression Total Score: 0 06/20/20 3:03 PM EDT documented as of this encounter Care Teams Brine Tank Operator Relationship Specialty Start Date End Date Abraham Stafford MD [address] [place] [address], [address] [place] [address] PCP - General Internal Medicine 05/21/21 Abraham Stafford MD [address] [place] [address], [address] [place] [address] [email or web address] Insurance Assigned Provider 12/05/23 documented as of this encounter Additional Source Comments The information contained in this document represents components of the legal health record. It is not the complete legal health record.[facility]
--- OUTSIDE RECORDS SUMMARY | 2025-06-01 14:20 | XMS_ITS | Encounter Summary ---
Author Organization [facility] Address [address] [facility] [address] [place] [address] Phone Care Team Providers Care Cleaning Team Member Name Role Phone Abraham Stafford MD Primary Care Provider Abraham Stafford MD Unavailable [phone] Encounter Details Date Type Department Care Team (Late st Contact Info) Description 05/06/2023 Procedure Pass Non-Invasive Cardiology [address] [place] [address] Social History Tobacco Use Types Packs/Day Years [...] Description 06/08/2025 10:00 AM EDT Office Visit [facility] Medicine [address] [place] [address] [place] [address] Abraham Stafford MD [address] [place] [address], [address] [place] [address] 07/20/2025 Procedure Pass [facility] Endoscopy Admitting Dept Virtual Department [address] [place] [address] 07/20/2025 1:00 PM EST Hospital Encounter [facility] Endoscopy Admitting Dept Virtual Department [address] [place] [address] Drew Varela MD [address] [address] 07/20/2025 1:00 PM EST - 07/20/2025 1:30 PM EST Surgery [facility] Endoscopy Admitting Dept Virtual Department [address] [place] [address] Drew Varela MD [address] [address] COLONOSCOPY 11/29/2025 10:20 AM EDT Office Visit [facility] [address] [place] [address] 3rd Floor, [address] [place] [address] Danish Grace MD [address] [place] [address], [address] [place] [address] [email or web address] Scheduled Procedures Name Priority Associated Diagnoses Date/Ti me COLONOSCOPY Family history of colon cancer Hx of colonic polyps 07/20/2025 1:00 PM EST documented as of this encounter Visit Diagnoses Not on filedocumented in this encounter Additional Health Concerns Assessment Noted Time PHQ-2 Depression Total Score: 0 03/13/20 23 4:56 PM EDT documented as of this encounter Care Teams Cleaning Team Member Relationship Specialty Start Date End Date Abraham Stafford MD [address] [place] [address], [address] [place] [address] [email or web address] PCP - General Internal Medicine 05/21/21 Abraham Stafford MD [address] [place] [address], [address] [place] [address] [email or web address] Insurance Assigned Provider 12/05/23 documented as of this encounter Additional Source Comments The information contained in this document represents components of the legal health record. It is not the complete legal health record.[facility]
--- OUTSIDE RECORDS SUMMARY | 2025-06-01 14:20 | XMS_ITS | Encounter Summary ---
Author Organization [facility] Address [address] [facility] [address] [place] [address] Phone Care Team Providers Care Four H Club Agent Name Role Phone Susanna Solo DO Unavailable [phone] Abraham Stafford MD Primary Care Provider [phone] Abraham Stafford MD Unavailable [phone] Encounter Details Date Type Department Care Team (Late st Contact Info) Description 11/05/2021 Procedure Pass Echo [facility] [place] [place] [address] Social History Tobacco Use Types Packs/Day Years [...] 06/08/2025 10:00 AM EDT Office Visit [facility] [address] [place] [address] [place] [address] Abraham Stafford MD 22 [facility], [address] [place] [address] 07/20/2025 Procedure Pass [facility] Endoscopy Admitting Dept Virtual Department [address] [place] [address] 07/20/2025 1:00 PM EST Hospital Encounter [facility] Endoscopy Admitting Dept Virtual Department [address] [place] [address] Drew Varela MD [address] [address] 07/20/2025 1:00 PM EST - 07/20/2025 1:30 PM EST Surgery [facility] Endoscopy Admitting Dept Virtual Department 30 [place] [address] Drew Varela MD [address] [address] COLONOSCOPY 11/29/2025 10:20 AM EDT Office Visit [facility] [address] [place] [address] 3rd Floor, [address] [place] [address] Danish Grace MD [address] [place] [address], [address] [place] [address] [email or web address] Scheduled Procedures Name Priority Associated Diagnoses Date/Ti me COLONOSCOPY Family history of colon cancer Hx of colonic polyps 07/20/2025 1:00 PM EST documented as of this encounter Visit Diagnoses Not on filedocumented in this encounter Additional Health Concerns Assessment Noted Time PHQ-2 Depression Total Score: 0 06/20/20 21 3:03 PM EDT documented as of this encounter Care Teams Four H Club Agent Relationship Specialty Start Date End Date Abraham Stafford MD [address] [place] [address], [address] [place] [address] PCP - General Internal Medicine 05/21/21 Susanna Solo DO [address] [place] [address] [email or web address] Insurance Assigned Provider 05/28/19 12/07/21 Abraham Stafford MD [address] [place] [address], [address] [place] [address] [email or web address] Insurance Assigned Provider 12/05/23 documented as of this encounter Additional Source Comments The information contained in this document represents components of the legal health record. It is not the complete legal health record.[facility]
--- OUTSIDE RECORDS SUMMARY | 2025-06-01 14:20 | XMS_ITS | Encounter Summary ---
Author Organization [facility] Address [address] [place] [address] Phone Care Team Providers Care Epic Professional Name Role Phone Abraham Stafford MD Primary Care Provider [phone] Abraham Stafford MD Unavailable [phone] Encounter Details Date Type Department Care Team (Late st Contact Info) Description 05/11/2025 Orders Only [facility] [address] [place] [address] Unknown, Unknown, Social History Tobacco Use Types Packs/Day Years [...] Description 06/08/2025 10:00 AM EDT Office Visit [address] [place] [address] Abraham Stafford MD 22 [facility], [address] [place] [address] 07/20/2025 Procedure Pass [facility] Endoscopy Admitting Dept Virtual Department [address] [place] [address] 07/20/2025 1:00 PM EST Hospital Encounter [facility] Endoscopy Admitting Dept Virtual Department [address] [place] [address] Drew Varela MD [address] [place] [address] 07/20/2025 1:00 PM EST - 07/20/2025 1:30 PM EST Surgery [facility] Endoscopy Admitting Dept Virtual Department [address] [place] [address] Drew Varela MD [address] [place] [address] COLONOSCOPY 11/29/2025 10:20 AM EDT Office Visit [facility] [address] [facility] 3rd Floor, [address] [place] [address] Danish Grace MD [address] [facility], [address] [place] [address] [email or web address] Scheduled Procedures Name Priority Associated Diagnoses Date/Ti me COLONOSCOPY Family history of colon cancer Hx of colonic polyps 07/20/2025 1:00 PM EST documented as of this encounter Procedures Procedure Name Priority Date/Time Associated Diagnosis Comments OUTSIDE US IMAGING REPORT ONLY Routine 05/08/2025 2:44 PM EDT documented in this encounter Results * Outside US Imaging??Report Only (05/08/2025 2:44 PM EDT) us Unknown Unknown MD GUERRERO US OP Edited Result - Final documented in this encounter Visit Diagnoses Not on filedocumented in this encounter Additional Health Concerns Assessment Noted Time PHQ-2 Depression Total Score: 0 05/09/20 1:07 PM EDT documented as of this encounter Care Teams Epic Professional Relationship Specialty Start Date End Date Abraham Stafford MD [address] [facility], [address] [place] [address] [email or web address] PCP - General Internal Medicine 05/21/21 Abraham Stafford MD [address] [facility], [address] [place] [address] [email or web address] Insurance Assigned Provider 12/05/23 documented as of this encounter Additional Source Comments The information contained in this document represents components of the legal health record. It is not the complete legal health record.[facility]
--- OUTSIDE RECORDS SUMMARY | 2025-06-01 14:20 | XMS_ITS | Encounter Summary ---
Author Organization [facility] Address [address] [place] [address] [place] [address] Phone Care Team Providers Care Practice Specialist Name Role Phone Bony Wang MD Unavailable Susanna Solo DO Primary Care Provider + [phone] Susanna Solo DO Unavailable [phone] Chasidy Diop RN Unavailable [email or web address] Abraham Stafford MD Primary Care Provider [phone] Freddie Granados MD Primary Care Provider + [phone] Abraham Stafford MD Primary Care Provider [phone] Abraham Stafford MD Unavailable [phone] Encounter Details Date Type Department Care Team (Late st Contact Info) Description 09/06/2018 Procedure Pass [facility] Endoscopy Admitting Dept Virtual Department [address] [place] [address] Social History Tobacco Use Types Packs/Day Years [...] Description 06/08/2025 10:00 AM EDT Office Visit [facility] [address] [place] [address] Abraham Stafford MD [address] [place] [address], [address] [place] [address] 07/20/2025 Procedure Pass [facility] Endoscopy Admitting Dept Virtual Department [address] [place] [address] 07/20/2025 1:00 PM EST Hospital Encounter [facility] Endoscopy Admitting Dept Virtual Department [address] [place] [address] Drew Varela MD [address] [place] [address] 07/20/2025 1:00 PM EST - 07/20/2025 1:30 PM EST Surgery [facility] Endoscopy Admitting Dept Virtual Department [address] [place] [address] Drew Varela MD [address] [place] [address] COLONOSCOPY 11/29/2025 10:20 AM EDT Office Visit [facility] [address] [place] [address] 3rd Floor, [address] [place] [address] Danish Grace MD [address] [place] [address], [address] [place] [address] Scheduled Procedures Name Priority Associated Diagnoses Date/Ti me COLONOSCOPY Family history of colon cancer Hx of colonic polyps 07/20/2025 1:00 PM EST documented as of this encounter Visit Diagnoses Not on filedocumented in this encounter Care Teams Practice Specialist Relationship Specialty Start Date End Date Susanna Solo DO 9 [place] [address] [email or web address] PCP - General Family Medicine 09/03/18 01/02/21 Abraham Stafford MD [address] [place] [address], [address] [place] [address] [email or web address] PCP - General Internal Medicine 01/03/21 01/03/21 Freddie Granados MD [address] [place] [address], [address] [place] [address] [email or web address] PCP - General Internal Medicine 01/04/21 05/20/21 Abraham Stafford MD [address] [place] [address], [address] [place] [address] [email or web address] PCP - General Internal Medicine 05/21/21 Bony Wang MD [address] [place] [address] Floor 1 [place] [address] [email or web address] Insurance Assigned Provider 11/28/17 05/28/19 Susanna Solo DO [address] [place] [address] [email or web address] Insurance Assigned Provider 05/28/19 12/07/21 Chasidy Diop RN [address] [place] [address] [email or web address] Worker 10/28/19 11/01/19 Abraham Stafford MD [address] [place] [address], [address] [place] [address] [email or web address] Insurance Assigned Provider 12/05/23 documented as of this encounter Additional Source Comments The information contained in this document represents components of the legal health record. It is not the complete legal health record.[facility]
--- OUTSIDE RECORDS SUMMARY | 2025-06-01 14:20 | XMS_ITS | Encounter Summary ---
Author Organization [facility] Address [address] [facility] [address] [place] [address] Phone Care Team Providers Care Warehouse Order Picker Name Role Phone Bony Wang MD Primary Care Provide r Bony Wang MD Unavailable [phone] Susanna Solo DO Primary Care Provider + [phone] Susanna Solo DO Unavailable [phone] Chasidy Diop RN Unavailable [email or web address] Abraham Stafford MD Primary Care Provider [phone] Freddie Granados MD Primary Care Provider [phone] Abraham Stafford MD Primary Care Provider [phone] Abraham Stafford MD Unavailable [phone] Encounter Details Date Type Department Care Team (Latest Contact Info) Description 11/10/2017 Transcribe Orders [facility] Specimen Processing 30 [place] [address] Kellee Hadley MD [address] [place], [place] [id number] Osteomyelitis, unspecified site, unspecified type (Primary Dx) [...] Description 06/08/2025 10:00 AM EDT Office Visit [address] [address] Abraham Stafford MD [address] [place] [address], [address] [place] [address] 07/20/2025 Procedure Pass [facility] Endoscopy Admitting Dept Virtual Department [address] [place] [address] 07/20/2025 1:00 PM EST Hospital Encounter [facility] Endoscopy Admitting Dept Virtual Department [address] [place] [address] Drew Varela MD [address] [address] 07/20/2025 1:00 PM EST - 07/20/2025 1:30 PM EST Surgery [facility] Endoscopy Admitting Dept Virtual Department [address] [place] [address] Drew Varela MD [address] [place] [address] COLONOSCOPY 11/29/2025 10:20 AM EDT Office Visit [facility] [address] [place] [address] 3rd Floor, [address] [place] [address] Danish Grace MD [address] [place] [address], [address] [place] [address] Scheduled Procedures Name Priority Associated Diagnoses Date/Ti me COLONOSCOPY Family history of colon cancer Hx of colonic polyps 07/20/2025 1:00 PM EST documented as of this encounter Results * Vancomycin, trough (11/10/2017 8:55 AM EDT) VANCOMYCIN,TROU GH 12.2 10.0 - 20.0 ug/mL [facility] Comment: Interpretation: Therapeutic Range: 10.0 - 20.0 ug/ml. Toxic: Greater than 30.0 ug/ml. Blood 11/10/2017 8:55 AM EDT 11/10/2017 9:32 AM EDT Kellee Hadley MD LAB BLOOD ORDERABLES Final Result Performing Organization Address City/[facility]/ZIP Co de Phone Number [address] [address] * Sedimentation rate (ESR) (11/10/2017 8:55 AM EDT) ESR 16 0 - 20 mm/h [facility] Blood 11/10/2017 8:55 AM EDT 11/10/2017 9:32 AM EDT Kellee Hadley MD LAB BLOOD ORDERABLES Final Result Performing Organization Address [facility] Co de Phone Number [address] [address] * Creatinine/eGFR (11/10/2017 8:55 AM EDT) CREATININE 1.10 0.5 - 1.5 mg/dL [facility] EGFR 68 >59 mL/min/1.7 3m2 [facility] Comment:If patient is black, multiply result by 1.159. The eGFR calculation has changed from the MDRD equation to the CKD-EPI equation as of November 03, 2017. Blood 11/10/2017 8:55 AM EDT 11/10/2017 9:32 AM EDT Kellee Hadley MD LAB BLOOD ORDERABLES Final Result Performing Organization Address City/[facility]/ZIP Co de Phone Number [address] [address] * BUN (11/10/2017 8:55 AM EDT) BUN 18 6 - 19 mg/dL [facility] Blood 11/10/2017 8:55 AM EDT 11/10/2017 9:32 AM EDT us Kellee Hadley MD LAB BLOOD ORDERABLES Final Result [address] [address] * (ABNORMAL) CBC and differential (11/10/2017 8:55 AM EDT) WBC 6.06 3.40 - 11.20 K/uL [facility] RBC 4.34(L) 4.50 - 5.50 M/uL [facility] HGB 13.9 13.0 - 17.0 g/dL [facility] HCT 39.7(L) 40.0 - 51.0 % [facility] PLT 201 130 - 400 K/uL [facility] MCV 91.5 79.0 - 98.0 fL [facility] MCH 32.0 27.0 - 34.8 pg [facility] MCHC 35.0 31.5 - 36.0 g/dL [facility] RDW 13.7 10.8 - 14.6 % [facility] MPV 10.3 9.4 - 12.4 [facility] NRBC 0.00 /100 WBCs [facility] ABSOLUTE NRBC 0.00 K/uL [facility] DIFF METHOD Auto [facility] NEUTS 56.6 45.30 - 77.70 % [facility] LYMPHS 27.7 12.30 - 39.70 % [facility] MONOS 11.2 4.10 - 12.80 % [facility] EOS 3.0 0 - 7.2 % [facility] BASOS 1.2 0 - 2.80 % [facility] Granulocytes, immature (%) 0.3 0.0 - 0.9 % [facility] ABSOLUTE NEUTS 3.43 1.40 - 7.70 K/uL [facility] ABSOLUTE LYMPHS 1.68 0.60 - 3.20 K/uL [facility] ABSOLUTE MONOS 0.68(H) 0.11 - 0.59 K/uL [facility] ABSOLUTE EOS 0.18 0.01 - 0.50 K/uL [facility] ABSOLUTE BASOS 0.07 0.00 - 0.08 K/uL [facility] Granulocytes, immature 0.02 0.00 - 0.05 K/uL [facility] Blood 11/10/2017 8:55 AM EDT 11/10/2017 9:32 AM EDT us Kellee Hadley MD LAB BLOOD ORDERABLES Final Result Performing Organization Address [facility]/ZIP Co de Phone Number [address] [address] * (ABNORMAL) LFTs (hepatic panel) (11/10/2017 8:55 AM EDT) ALKALINE PHOSPHATASE 144(H) 39 - 117 U/L [facility] TOTAL BILIRUBIN 0.6 0.0 - 1.2 mg/dL [facility] DIRECT BILIRUBIN <0.2 0 - 0.3 mg/dL [facility] Bilirubin (Indirect) NOT CALCULATED 0 - 1.5 mg/dL [facility] AST 21 0 - 37 U/L [facility] ALT 22 0 - 40 U/L [facility] TOTAL PROTEIN 6.9 6.5 - 8.0 g/dL [facility] ALBUMIN 3.4(L) 3.9 - 4.8 g/dL [facility] GLOBULIN 3.5 1 - 4.8 g/dL [facility] A/G Ratio 0.97(L) 1.00 - 4.80 RATIO [facility] Blood 11/10/2017 8:55 AM EDT 11/10/2017 9:32 AM EDT us Kellee Hadley MD LAB BLOOD ORDERABLES Final Result Performing Organization Address City/[facility]/ZIP Co de Phone Number [address] [address] documented in this encounter Visit Diagnoses Diagnosis Osteomyelitis, unspecified site, unspecified type- Primary Family history of colon cancer Family history of malignant neoplasm of gastrointestinal tract Hx of colonic polyps Personal history of colonic polyps documented in this encounter Care Teams Warehouse Order Picker Relationship Specialty Start Date End Date Bony Wang MD [email or web address] PCP - General 06/18/17 09/02/18 Susanna Solo DO [address] [place] [address] [email or web address] PCP - General Family Medicine 09/03/18 01/02/21 Abraham Stafford MD [address] [place] [address], [address] [place] [address] [email or web address] PCP - General Internal Medicine 01/03/21 01/03/21 Freddie Granados MD [address] [place] [address], [address] [place] [address] [email or web address] PCP - General Internal Medicine 01/04/21 05/20/21 Abraham Stafford MD [address] [place] [address], [address] [place] [address] [email or web address] PCP - General Internal Medicine 05/21/21 Bony Wang MD 22 [facility] Floor 1 [place] [address] [email or web address] Insurance Assigned Provider 11/28/17 05/28/19 Susanna Solo DO [address] [place] [address] [email or web address] Insurance Assigned Provider 05/28/19 12/07/21 Chasidy Diop, MAINE [address] [place] [address] [email or web address] Supplier Relationship Director 10/28/19 11/01/19 Abraham Stafford MD [address] [place] [address], [address] [place] [address] [email or web address] Insurance Assigned Provider 12/05/23 documented as of this encounter Additional Source Comments The information contained in this document represents components of the legal health record. It is not the complete legal health record.[facility]
--- OUTSIDE RECORDS SUMMARY | 2025-06-01 14:20 | XMS_ITS | Encounter Summary ---
Author Organization [facility] Address [address] [facility] [address] [place] [address] Phone Care Team Providers Care Laborer Beam House Name Role Phone Susanna Solo DO Primary Care Provider + [phone] Susanna Solo DO Unavailable [phone] Arbaham Stafford MD Primary Care Provider [phone] Freddie Granados MD Primary Care Provider + [phone] Abraham Stafford MD Primary Care Provider [phone] Abraham Stafford MD Unavailable [phone] Encounter Details Date Type Department Care Team (Late st Contact Info) Description 08/09/2020 Procedure Pass Non-Invasive Cardiology [address] [place] [address] Social History Tobacco Use Types Packs/Day Years [...] 06/08/2025 10:00 AM EDT Office Visit [facility] [address] [place] [address] Abraham Stafford MD [address] [place] [address], [address] [place] [address] 07/20/2025 Procedure Pass [facility] Endoscopy Admitting Dept Virtual Department [address] [place] [address] 07/20/2025 1:00 PM EST Hospital Encounter [facility] Endoscopy Admitting Dept Virtual Department [address] [place] [address] Drew Varela MD [address] [address] 07/20/2025 1:00 PM EST - 07/20/2025 1:30 PM EST Surgery [facility] Endoscopy Admitting Dept Virtual Department [address] [place] [address] Drew Varela MD [address] [address] COLONOSCOPY 11/29/2025 10:20 AM EDT Office Visit [facility] [address] [place] [address] 3rd Floor, [address] [place] [address] Danish Grace MD [address] [place] [address], [address] [place] [address] Scheduled Procedures Name Priority Associated Diagnoses Date/Ti me COLONOSCOPY Family history of colon cancer Hx of colonic polyps 07/20/2025 1:00 PM EST documented as of this encounter Visit Diagnoses Not on filedocumented in this encounter Additional Health Concerns Assessment Noted Time PHQ-2 Depression Total Score: 0 10/23/19 11:07 AM EST documented as of this encounter Care Teams Laborer Beam House Relationship Specialty Start Date End Date Susanna Solo DO [address] [place] [address] [email or web address] PCP - General Family Medicine 09/03/18 01/02/21 Abraham Stafford MD [address] [place] [address], [address] [place] [address] PCP - General Internal Medicine 01/03/21 01/03/21 Freddie Granados MD [address] [place] [address], [address] [place] [address] PCP - General Internal Medicine 01/04/21 05/20/21 Abraham Stafford MD [address] [place] [address], [address] [place] [address] PCP - General Internal Medicine 05/21/21 Susanna Solo DO [address] [place] [address] [email or web address] Insurance Assigned Provider 05/28/19 12/07/21 Abraham Stafford MD [address] [place] [address], [address] [place] [address] Insurance Assigned Provider 12/05/23 documented as of this encounter Additional Source Comments The information contained in this document represents components of the legal health record. It is not the complete legal health record.[facility]
--- OUTSIDE RECORDS SUMMARY | 2025-06-01 14:20 | XMS_ITS | Encounter Summary ---
Author Organization [facility] Address 399 [facility] [address] [place] [address] Phone Care Team Providers Care Cardiology Consultant Name Role Phone Bony Wang MD Primary Care Provide r Bony Wang MD Unavailable [phone] Susanna Solo DO Primary Care Provider + [phone] Susanna Solo DO Unavailable [phone] Chasidy Diop RN Unavailable [email or web address] Abraham Stafford MD Primary Care Provider + [phone] Freddie Granados MD Primary Care Provider [phone] Abraham Stafford MD Primary Care Provider + [phone] Abraham Stafford MD Unavailable [phone] Encounter Details Date Type Department Care Team (Latest Contact Info) Description 11/03/2017 Transcribe Orders [facility] Specimen Processing [address] [place] [address] Kellee Hadley MD [address], [place] [id number] Osteomyelitis, unspecified site, unspecified type (Primary Dx) [...] Description 06/08/2025 10:00 AM EDT Office Visit [address] [address] Abraham Stafford MD [address] [place] [address], [address] [place] [address] 07/20/2025 Procedure Pass [facility] Endoscopy Admitting Dept Virtual Department [address] [place] [address] 07/20/2025 1:00 PM EST Hospital Encounter [facility] Endoscopy Admitting Dept Virtual Department [address] [place] [address] Drew Varela MD [address] [address] 07/20/2025 1:00 PM EST - 07/20/2025 1:30 PM EST Surgery [facility] Endoscopy Admitting Dept Virtual Department [address] [place] [address] Drew Varela MD [address] [place] [address] COLONOSCOPY 11/29/2025 10:20 AM EDT Office Visit [facility] [address] [place] [address] 3rd Floor, [address] [place] [address] Danish Grace MD [address] [place] [address], [address] [place] [address] Scheduled Procedures Name Priority Associated Diagnoses Date/Ti me COLONOSCOPY Family history of colon cancer Hx of colonic polyps 07/20/2025 1:00 PM EST documented as of this encounter Results * Vancomycin, trough (11/03/2017 10:06 AM EST) VANCOMYCIN,TROU GH 11.7 10.0 - 20.0 ug/mL [facility] Comment: Interpretation: Therapeutic Range: 10.0 - 20.0 ug/ml. Toxic: Greater than 30.0 ug/ml. Blood 11/03/2017 10:0 6 AM EST 11/03/2017 10:09 AM EST Kellee Hadley MD LAB BLOOD ORDERABLES Final Result Performing Organization Address [facility]/ZIP Co de Phone Number [address] [address] * Sedimentation rate (ESR) (11/03/2017 10:06 AM EST) ESR 11 0 - 20 mm/h [facility] Blood 11/03/2017 10:0 6 AM EST 11/03/2017 10:09 AM EST Kellee Hadley MD LAB BLOOD ORDERABLES Final Result Performing Organization Address [facility]/RUST de Phone Number [address] [address] * Creatinine/eGFR (11/03/2017 10:06 AM EST) CREATININE 1.20 0.5 - 1.5 mg/dL [facility] EGFR 61 >59 mL/min/1.7 3m2 [facility] Comment:If patient is black, multiply result by 1.159. The eGFR calculation has changed from the MDRD equation to the CKD-EPI equation as of November 03, 2017. Blood 11/03/2017 10:0 6 AM EST 11/03/2017 10:09 AM EST us Kellee Hadley MD LAB BLOOD ORDERABLES Final Result Performing Organization Address [facility] Co de Phone Number [address] [address] * (ABNORMAL) BUN (11/03/2017 10:06 AM EST) BUN 22(H) 6 - 19 mg/dL [facility] Blood 11/03/2017 10:0 6 AM EST 11/03/2017 10:09 AM EST us Kellee Hadley MD LAB BLOOD ORDERABLES Final Result [facility] [address] [place] [address] * (ABNORMAL) CBC and differential (11/03/2017 10:06 AM EST) WBC 7.41 3.40 - 11.20 K/uL [facility] RBC 4.58 4.50 - 5.50 M/uL [facility] HGB 14.5 13.0 - 17.0 g/dL [facility] HCT 42.5 40.0 - 51.0 % [facility] PLT 260 130 - 400 K/uL [facility] MCV 92.8 79.0 - 98.0 fL [facility] MCH 31.7 27.0 - 34.8 pg [facility] MCHC 34.1 31.5 - 36.0 g/dL [facility] RDW 13.6 10.8 - 14.6 % [facility] MPV 10.0 9.4 - 12.4 fl [facility] NRBC 0.00 /100 WBCs [facility] ABSOLUTE NRBC 0.00 K/uL [facility] DIFF METHOD Auto [facility] NEUTS 56.9 45.30 - 77.70 % [facility] LYMPHS 24.6 12.30 - 39.70 % [facility] MONOS 13.8(H) 4.10 - 12.80 % [facility] EOS 3.2 0 - 7.2 % [facility] BASOS 1.1 0 - 2.80 % [facility] Granulocytes, immature (%) 0.4 0.0 - 0.9 % [facility] ABSOLUTE NEUTS 4.22 1.40 - 7.70 K/uL [facility] ABSOLUTE LYMPHS 1.82 0.60 - 3.20 K/uL [facility] ABSOLUTE MONOS 1.02(H) 0.11 - 0.59 K/uL [facility] ABSOLUTE EOS 0.24 0.01 - 0.50 K/uL [facility] ABSOLUTE BASOS 0.08 0.00 - 0.08 K/uL [facility] Granulocytes, immature 0.03 0.00 - 0.05 K/uL [facility] Blood 11/03/2017 10:0 6 AM EST 11/03/2017 10:09 AM EST us Kellee Hadley MD LAB BLOOD ORDERABLES Final Result [address] [address] * (ABNORMAL) LFTs (hepatic panel) (11/03/2017 10:06 AM EST) ALKALINE PHOSPHATASE 135(H) 39 - 117 U/L [facility] TOTAL BILIRUBIN 0.5 0.0 - 1.2 mg/dL [facility] DIRECT BILIRUBIN <0.2 0 - 0.3 mg/dL [facility] Bilirubin (Indirect) NOT CALCULATED 0 - 1.5 mg/dL [facility] AST 19 0 - 37 U/L [facility] ALT 18 0 - 40 U/L [facility] TOTAL PROTEIN 7.3 6.5 - 8.0 g/dL [facility] ALBUMIN 3.7(L) 3.9 - 4.8 g/dL [facility] GLOBULIN 3.6 1 - 4.8 g/dL [facility] A/G Ratio 1.03 1.00 - 4.80 RATIO [facility] Blood 11/03/2017 10:0 6 AM EST 11/03/2017 10:09 AM EST us Kellee Hadley MD LAB BLOOD ORDERABLES Final Result [address] [address] documented in this encounter Visit Diagnoses Diagnosis Osteomyelitis, unspecified site, unspecified type- Primary Family history of colon cancer Family history of malignant neoplasm of gastrointestinal tract Hx of colonic polyps Personal history of colonic polyps documented in this encounter Care Teams Cardiology Consultant Relationship Specialty Start Date End Date Bony Wang MD [email or web address] PCP - General 06/18/17 09/02/18 Susanna Solo DO [address] [place] [address] [email or web address] PCP - General Family Medicine 09/03/18 01/02/21 Abraham Stafford MD [address] [place] [address], [address] [place] [address] [email or web address] PCP - General Internal Medicine 01/03/21 01/03/21 Freddie Granados MD [address] [place] [address], [address] [place] [address] [email or web address] PCP - General Internal Medicine 01/04/21 05/20/21 Abraham Stafford MD [address] [place] [address], [address] [place] [address] [email or web address] PCP - General Internal Medicine 05/21/21 Bony Wang MD 22 [facility] Floor 1 [place] [address] [email or web address] Insurance Assigned Provider 11/28/17 05/28/19 Susanna Solo DO [address] [place] [address] [email or web address] Insurance Assigned Provider 05/28/19 12/07/21 Chasidy Diop, RN [address] [place] [address] [email or web address] Purchasing And Fiscal Clerk 10/28/19 11/01/19 Abraham Stafford MD [address] [place] [address], [address] [place] [address] [email or web address] Insurance Assigned Provider 12/05/23 documented as of this encounter Additional Source Comments The information contained in this document represents components of the legal health record. It is not the complete legal health record.[facility]
--- OUTSIDE RECORDS SUMMARY | 2025-06-01 14:20 | XMS_ITS | Encounter Summary ---
Author Organization [facility] Address [address] [facility] [address] [place] [address] Phone Care Team Providers Care Er Rn Name Role Phone Abraham Stafford MD Primary Care Provider [phone] Abraham Stafford MD Unavailable [phone] Encounter Details Date Type Department Care Team (Late st Contact Info) Description 01/15/2022 Ancillary [facility] [address] [facility] 3rd Floor, [address] [place] [address] Danisha You MD 30 [place] [id number] [email or web address] Social History Tobacco Use Types Packs/Day Years [...] 06/08/2025 10:00 AM EDT Office Visit [facility] [address] [place] [address] Abraham Stafford MD 22 [facility], [address] [place] [address] [email or web address] 07/20/2025 Procedure Pass [facility] Endoscopy Admitting Dept Virtual Department [address] [place] [address] 07/20/2025 1:00 PM EST Hospital Encounter [facility] Endoscopy Admitting Dept Virtual Department [address] [place] [address] Drew Varela MD [address] [address] 07/20/2025 1:00 PM EST - 07/20/2025 1:30 PM EST Surgery [facility] Endoscopy Admitting Dept Virtual Department [address] [place] [address] Drew Varela MD [address] [place] [address] COLONOSCOPY 11/29/2025 10:20 AM EDT Office Visit [facility] [address] [place] [address] 3rd Floor, [address] [place] [address] Danish Grace MD [address] [place] [address], [address] [place] [address] Scheduled Procedures Name Priority Associated Diagnoses Date/Ti me COLONOSCOPY Family history of colon cancer Hx of colonic polyps 07/20/2025 1:00 PM EST documented as of this encounter Visit Diagnoses Not on filedocumented in this encounter Additional Health Concerns Assessment Noted Time PHQ-2 Depression Total Score: 0 06/20/20 21 3:03 PM EDT documented as of this encounter Care Teams Er Rn Relationship Specialty Start Date End Date Abraham Stafford MD [address] [place] [address], [address] [place] [address] PCP - General Internal Medicine 05/21/21 Abraham Stafford MD [address] [place] [address], [address] [place] [address] [email or web address] Insurance Assigned Provider 12/05/23 documented as of this encounter Additional Source Comments The information contained in this document represents components of the legal health record. It is not the complete legal health record.[facility]
--- OUTSIDE RECORDS SUMMARY | 2025-06-01 14:20 | XMS_ITS | Encounter Summary ---
Author Organization [facility] Address [address] [facility] [address] [place] [address] Phone Care Team Providers Care Rad Technologist Name Role Phone Abraham Stafford MD Primary Care Provider Abraham Stafford MD Unavailable [phone] Encounter Details Date Type Department Care Team (Late st Contact Info) Description 01/15/2022 Ancillary Orders Non-Invasive Cardiology [address] [place] [address] Danisha You MD [address] [place] [phone] [email or web address] Sick sinus syndrome Social History Tobacco Use [...] Description 06/08/2025 10:00 AM EDT Office Visit [facility] [address] [place] [address] Abraham Stafford MD 22 [facility], [address] [place] [address] 07/20/2025 Procedure Pass [facility] Endoscopy Admitting Dept Virtual Department [address] [place] [address] 07/20/2025 1:00 PM EST Hospital Encounter [facility] Endoscopy Admitting Dept Virtual Department [address] [place] [address] Drew Varela MD [address] [address] 07/20/2025 1:00 PM EST - 07/20/2025 1:30 PM EST Surgery [facility] Endoscopy Admitting Dept Virtual Department [address] [place] [address] Drew Varela MD [address] [place] [address] COLONOSCOPY 11/29/2025 10:20 AM EDT Office Visit [facility] [address] [place] [address] 3rd Floor, [address] [place] [address] Danish Grace MD [address] [place] [address], [address] [place] [address] [email or web address] Scheduled Procedures Name [...] for device: SSS. Examination: Device type: Pacemaker Concrete Rod Buster: Biotronik Mode: DDDR-ADIR LRL/UPL: 60/130 bpm Mode switches: 0 High V rates: 0 Thresholds, impedances, and sensing stable. Atrial pacin% Ventricular pacin% Battery: 80% longevity Additional comments: Device functioning appropriately. Normal device function. Patient to follow-up for continued monitoring every 3 months. Report prepared by Mikayla Austin NP Danisha You MD [facility] ORDER [...] documented as of this encounter Care Teams Rad Technologist Relationship Specialty Start Date End Date Abraham Stafford MD 22 [facility], [address] [place] [address] [email or web address] PCP - General Internal Medicine 05/21/21 Abraham Stafford MD 22 [facility], [address] [place] [address] Insurance Assigned Provider 12/05/23 documented as of this encounter Additional Source Comments The information contained in this document represents components of the legal health record. It is not the complete legal health record.[facility]
--- OUTSIDE RECORDS SUMMARY | 2025-06-01 14:20 | XMS_ITS | Encounter Summary ---
Author Organization [facility] Address [address] [facility] [address] [place] [address] Phone Care Team Providers Care Brick Picker Name Role Phone Susanna Solo DO Primary Care Provider + [phone] Susanna Solo DO Unavailable [phone] Abraham Stafford MD Primary Care Provider [phone] Freddie Granados MD Primary Care Provider + [phone] Abraham Stafford MD Primary Care Provider [phone] Abraham Stafford MD Unavailable [phone] Encounter Details Date Type Department Care Team (Late st Contact Info) Description 06/30/2020 Procedure Pass Non-Invasive Cardiology [address] [place] [address] Social History Tobacco Use Types Packs/Day Years [...] 06/08/2025 10:00 AM EDT Office Visit [facility] [address] [place] [address] Abraham Stafford MD [address] [place] [address], [address] [place] [address] 07/20/2025 Procedure Pass [facility] Endoscopy Admitting Dept Virtual Department [address] [place] [address] 07/20/2025 1:00 PM EST Hospital Encounter [facility] Endoscopy Admitting Dept Virtual Department [address] [place] [address] Drew Varela MD [address] [address] 07/20/2025 1:00 PM EST - 07/20/2025 1:30 PM EST Surgery [facility] Endoscopy Admitting Dept Virtual Department [address] [place] [address] Drew Varela MD [address] [address] [email or web address] COLONOSCOPY 11/29/2025 10:20 AM EDT Office Visit [facility] [address] [place] [address] 3rd Floor, [address] [place] [address] Danish Grace MD [address] [place] [address], [address] [place] [address] Scheduled Procedures Name Priority Associated Diagnoses Date/Ti wy COLONOSCOPY Family history of colon cancer Hx of colonic polyps 07/20/2025 1:00 PM EST documented as of this encounter Visit Diagnoses Not on filedocumented in this encounter Care Teams Brick Picker Relationship Specialty Start Date End Date Susanna Solo DO [address] [place] [address] [email or web address] PCP - General Family Medicine 09/03/18 01/02/21 Abraham Stafford MD [address] [place] [address], [address] [place] [address] PCP - General Internal Medicine 01/03/21 01/03/21 Freddie Granados MD [address] [place] [address], [address] [place] [address] PCP - General Internal Medicine 01/04/21 05/20/21 Abraham Stafford MD [address] [place] [address], [address] [place] [address] [email or web address] PCP - General Internal Medicine 05/21/21 Susanna Solo DO [address] [place] [address] [email or web address] Insurance Assigned Provider 05/28/19 12/07/21 Abraham Stafford MD [address] [place] [address], [address] [place] [address] [email or web address] Insurance Assigned Provider 12/05/23 documented as of this encounter Additional Source Comments The information contained in this document represents components of the legal health record. It is not the complete legal health record.[facility]
--- OUTSIDE RECORDS SUMMARY | 2025-06-01 14:20 | XMS_ITS | Encounter Summary ---
Author Organization [facility] Address [address] [place] [address] Phone Care Team Providers Care Termite Inspector Name Role Phone Abraham Stafford MD Primary Care Provider [phone] Abraham Stafford MD Unavailable [phone] Encounter Details Date Type Department Care Team (Late st Contact Info) Description 04/25/2025 Procedure Pass Non-Invasive Cardiology [address] [place] [address] Social History Tobacco Use Types Packs/Day Years [...] Description 06/08/2025 10:00 AM EDT Office Visit [facility] Medicine [address] [place] [address] Abraham Stafford MD 22 [facility], [address] [place] [address] 07/20/2025 Procedure Pass [facility] Endoscopy Admitting Dept Virtual Department [address] [place] [address] 07/20/2025 1:00 PM EST Hospital Encounter [facility] Endoscopy Admitting Dept Virtual Department [address] [place] [address] Drew Varela MD [address] [address] 07/20/2025 1:00 PM EST - 07/20/2025 1:30 PM EST Surgery [facility] Endoscopy Admitting Dept Virtual Department [address] [place] [address] Drew Varela MD [address] [address] COLONOSCOPY 11/29/2025 10:20 AM EDT Office Visit [facility] [address] [place] [address] 3rd Floor, [address] [place] [address] Danish Grace MD 22 [facility], [address] [place] [address] Scheduled Procedures Name Priority Associated Diagnoses Date/Ti me COLONOSCOPY Family history of colon cancer Hx of colonic polyps 07/20/2025 1:00 PM EST documented as of this encounter Visit Diagnoses Not on filedocumented in this encounter Additional Health Concerns Assessment Noted Time PHQ-2 Depression Total Score: 0 05/09/20 1:07 PM EDT documented as of this encounter Care Teams Termite Inspector Relationship Specialty Start Date End Date Abraham Stafford MD [address] [place] [address], [address] [address] PCP - General Internal Medicine 05/21/21 Abraham Stafford MD [address] [place] [address], [address] [address] Insurance Assigned Provider 12/05/23 documented as of this encounter Additional Source Comments The information contained in this document represents components of the legal health record. It is not the complete legal health record.[facility]
--- OUTSIDE RECORDS SUMMARY | 2025-06-01 14:20 | XMS_ITS | Encounter Summary ---
Author Organization [facility] Address [address] [facility] [address] [place] [address] Phone Care Team Providers Care Electrical Maintenance Mechanic Name Role Phone Abraham Stafford MD Primary Care Provider [phone] Abraham Stafford MD Unavailable [phone] Encounter Details Date Type Department Care Team (Late st Contact Info) Description 05/12/2023 Procedure Pass Non-Invasive Cardiology [address] [place] [address] Social History Tobacco Use Types Packs/Day Years [...] Description 06/08/2025 10:00 AM EDT Office Visit [facility] Medicine [address] [place] [address] [place] [address] Abraham Stafford MD [address] [place] [address], [address] [place] [address] 07/20/2025 Procedure Pass [facility] Endoscopy Admitting Dept Virtual Department [address] [place] [address] 07/20/2025 1:00 PM EST Hospital Encounter [facility] Endoscopy Admitting Dept Virtual Department [address] [place] [address] Drew Varela MD [address] [address] 07/20/2025 1:00 PM EST - 07/20/2025 1:30 PM EST Surgery [facility] Endoscopy Admitting Dept Virtual Department [address] [place] [address] Drew Varela MD [address] [address] COLONOSCOPY 11/29/2025 10:20 AM EDT Office Visit [facility] [address] [place] [address] 3rd Floor, [address] [place] [address] Danish Grace MD [address] [place] [address], [address] [place] [address] [email or web address] Scheduled Procedures Name Priority Associated Diagnoses Date/Ti me COLONOSCOPY Family history of colon cancer Hx of colonic polyps 07/20/2025 1:00 PM EST documented as of this encounter Visit Diagnoses Not on filedocumented in this encounter Additional Health Concerns Assessment Noted Time PHQ-2 Depression Total Score: 0 03/13/20 23 4:56 PM EDT documented as of this encounter Care Teams Electrical Maintenance Mechanic Relationship Specialty Start Date End Date Abraham Stafford MD [address] [place] [address], [address] [place] [address] [email or web address] PCP - General Internal Medicine 05/21/21 Abraham Stafford MD [address] [place] [address], [address] [place] [address] [email or web address] Insurance Assigned Provider 12/05/23 documented as of this encounter Additional Source Comments The information contained in this document represents components of the legal health record. It is not the complete legal health record.[facility]
--- OUTSIDE RECORDS SUMMARY | 2025-06-01 14:20 | XMS_ITS | Encounter Summary ---
Author Organization [facility] Address [address] [facility] [address] [place] [address] Phone Care Team Providers Care Manager Auto Name Role Phone Abraham Stafford MD Primary Care Provider [phone] Abraham Stafford MD Unavailable [phone] Encounter Details Date Type Department Care Team (Late st Contact Info) Description 08/17/2023 Procedure Pass Non-Invasive Cardiology [address] [place] [address] Social History Tobacco Use Types Packs/Day Years [...] Description 06/08/2025 10:00 AM EDT Office Visit [facility] Medicine [address] [place] [address] [place] [address] Abraham Stafford MD [address] [place] [address], [address] [place] [address] 07/20/2025 Procedure Pass [facility] Endoscopy Admitting Dept Virtual Department [address] [place] [address] 07/20/2025 1:00 PM EST Hospital Encounter [facility] Endoscopy Admitting Dept Virtual Department [address] [place] [address] Drew Varela MD [address] [address] 07/20/2025 1:00 PM EST - 07/20/2025 1:30 PM EST Surgery [facility] Endoscopy Admitting Dept Virtual Department [address] [place] [address] Drew Varela MD [address] [address] COLONOSCOPY 11/29/2025 10:20 AM EDT Office Visit [facility] [address] [place] [address] [address]rd Floor, [address] [place] [address] Danish Grace MD [address] [place] [address], [address] [place] [address] [email or web address] Scheduled Procedures Name Priority Associated Diagnoses Date/Ti me COLONOSCOPY Family history of colon cancer Hx of colonic polyps 07/20/2025 1:00 PM EST documented as of this encounter Visit Diagnoses Not on filedocumented in this encounter Additional Health Concerns Assessment Noted Time PHQ-2 Depression Total Score: 0 05/09/20 24 1:07 PM EDT documented as of this encounter Care Teams Manager Auto Relationship Specialty Start Date End Date Abraham Stafford MD [address] [place] [address], [address] [place] [address] [email or web address] PCP - General Internal Medicine 05/21/21 Abraham Stafford MD [address] [place] [address], [address] [place] [address] [email or web address] Insurance Assigned Provider 12/05/23 documented as of this encounter Additional Source Comments The information contained in this document represents components of the legal health record. It is not the complete legal health record.[facility]
--- OUTSIDE RECORDS SUMMARY | 2025-06-01 14:21 | XMS_ITS | Encounter Summary ---
Author Organization [facility], Address [address] [place] [address] Phone Care Team Providers Care Retail Support Specialist Name Role Phone Susanna Solo DO Primary Care Provider Unava ilable Encounter Details Date Type Department Care Team (Late st Contact Info) Description 12/14/2019 Orders Only [facility] - [address] [place] [address] Laureen Alonzo MD Hyperkalemia; Hypertension Social History [...] Hypertension documented in this encounter Care Teams Retail Support Specialist Relationship Specialty Start Date End Date Susanna Solo DO PCP - General Metal Sander And Finisher 09/07/19 documented as of this encounter
--- OUTSIDE RECORDS SUMMARY | 2025-06-01 14:21 | XMS_ITS | Encounter Summary ---
Author Organization [facility] Address [address] [facility] [address] [place] [address] Phone Care Team Providers Care Machine Deburrer Name Role Phone Susanna Solo DO Primary Care Provider + [phone] Susanna Solo DO Unavailable [phone] Abraham Stafford MD Primary Care Provider [phone] Freddie Granados MD Primary Care Provider + [phone] Abraham Stafford MD Primary Care Provider [phone] Abraham Stafford MD Unavailable [phone] Encounter Details Date Type Department Care Team (Late st Contact Info) Description 07/10/2020 Procedure Pass [facility] [address] [place] [address] Social History Tobacco Use Types Packs/Day Years [...] 06/08/2025 10:00 AM EDT Office Visit [facility] [address] [place] [address] Abraham Stafford MD [address] [place] [address], [address] [place] [address] 07/20/2025 Procedure Pass [facility] Endoscopy Admitting Dept Virtual Department [address] [place] [address] 07/20/2025 1:00 PM EST Hospital Encounter [facility] Endoscopy Admitting Dept Virtual Department [address] [place] [address] Drew Varela MD [address] [address] 07/20/2025 1:00 PM EST - 07/20/2025 1:30 PM EST Surgery [facility] Endoscopy Admitting Dept Virtual Department [address] [place] [address] Drew Varela MD [address] [address] [email or web address] COLONOSCOPY 11/29/2025 10:20 AM EDT Office Visit [facility] [address] [place] [address] [address] Floor, [address] [place] [address] Danish Grace MD [address] [place] [address], [address] [place] [address] Scheduled Procedures Name Priority Associated Diagnoses Date/Ti ky COLONOSCOPY Family history of colon cancer Hx of colonic polyps 07/20/2025 1:00 PM EST documented as of this encounter Visit Diagnoses Not on filedocumented in this encounter Care Teams Machine Deburrer Relationship Specialty Start Date End Date Susanna Solo DO [address] [place] [address] [email or web address] PCP - General Family Medicine 09/03/18 01/02/21 Abraham Stafford MD [address] [place] [address], [address] [place] [address] PCP - General Internal Medicine 01/03/21 01/03/21 Freddie Granados MD [address] [place] [address], [address] [place] [address] PCP - General Internal Medicine 01/04/21 05/20/21 Abraham Stafford MD [address] [place] [address], [address] [place] [address] [email or web address] PCP - General Internal Medicine 05/21/21 Susanna Solo DO [address] [place] [address] [email or web address] Insurance Assigned Provider 05/28/19 12/07/21 Abraham Stafford MD [address] [place] [address], [address] [place] [address] [email or web address] Insurance Assigned Provider 12/05/23 documented as of this encounter Additional Source Comments The information contained in this document represents components of the legal health record. It is not the complete legal health record.[facility]
--- OUTSIDE RECORDS SUMMARY | 2025-06-01 14:21 | XMS_ITS | Encounter Summary ---
Author Organization [facility], Address [address] [place] [address] Phone Care Team Providers Care Job Captain Name Role Phone Susanna Solo DO Primary Care Provider Unava ilable Encounter Details Date Type Department Care Team (Late st Contact Info) Description 09/28/2019 Orders Only [facility] - [address] [place] [address] Laureen Alonzo MD Hyperkalemia; Hypertension Social History [...] Hypertension documented in this encounter Care Teams Job Captain Relationship Specialty Start Date End Date Susanna Solo DO PCP - General Sanitation Supervisor 09/07/19 documented as of this encounter
--- OUTSIDE RECORDS SUMMARY | 2025-06-01 14:21 | XMS_ITS | Clinical Summary ---
Author Organization [facility] Address [address] [facility] [address] [place] [address] Phone Care Team Providers Care Coding Consultant Name Role Phone Sheila Stafford MD Primary Care Provider [phone] Sheila Stafford MD Unavailable Allergies No known active allergies Medications aspirin 81 mg chewable tablet Take 81 mg by mouth daily. Active cyanocobalamin, vitamin B-12, 1000 MCG tablet Take 1,000 mcg by mouth daily. Active allopurinol (ZYLOPRIM) 100 MG tabletIndication s:Hyperuricemia take 2 tablets by mouth every day 180 tablet 3 4 Active ELIQUIS 5 mg tabletIndication s:Paroxysmal atrial fibrillation take 1 tablet by mouth twice a day 180 tablet 3 4 Active atorvastatin (LIPITOR) 80 MG tabletIndication s:Hypertension TAKE 1 TABLET BY MOUTH EVERY DAY 90 tablet 3 5 Active metoprolol succinate (TOPROL-XL) 25 MG 24 hr tabletIndication s:Hypertension,M edication refill TAKE 1 TABLET (25 MG TOTAL) BY MOUTH DAILY. 90 tablet 3 5 Active pregabalin (LYRICA) 150 MG capsuleIndicatio ns:Neuropathy Take 1 capsule (150 mg total) by mouth 3 (three) times a day. 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 Most recent remote interrogation on 07/2024-Presenting EGM As/Ap - Formula Clerk. Battery status is OK. Measured values in normal range. Since last transmission, no new episodes. 0% AT/AF Cope. Last in person interrogation done on 05/2024. [...] EDT): Patient on Eliquis therapy. Follow with Cargo Handler. 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 (Primary Dx); Ischemic cardiomyopathy; Pacemaker; Essential hypertension 05/31/2025 9:17 AM EDT - 05/31/2025 11:59 PM EDT Hospital Encounter Non-Invasive Cardiology [address] [place] [address] Danish Grace MD Arrived Discharge Disposition: Home or Self Care 05/22/2025 10:11 AM EDT - 05/22/2025 11:59 PM EDT Hospital Encounter Echo [facility] [address] [place] [address] Claribel Kendall DNP Discharge Disposition: Home or Self Care 05/11/2025 Orders Only [address] [place] [address] Unknown, Nessa, 04/26/[address] [place] [address] Sheila Stafford MD Medication Refill 04/25/2025 Procedure Pass Non-Invasive Cardiology [address] [place] [address] 04/25/2025 Orders Only [facility] [address] 3rd Floor, [address] [place] [address] Danish Grace MD Sick sinus syndrome (Primary Dx) 04/04/[address] 3rd Floor, [address] [place] [address] Danish Grace MD 04/03/2025 Orders Only [address] [place] [address] Bobby Chand MD 03/24/2025 Orders Only [facility] [address] 3rd Floor, [address] [place] [address] Bobby Chand MD 03/15/[address] [place] [address] Sheila Stafford MD Medication Refill 11/22/2024 Procedure Pass Echo [facility] [address] [place] [address] from Last 3 Months Immunizations Immunization Administration [...] Pulse 61 05/31/2025 9:24 AM EDT Temperature 36.7 C (98 F) 05/13/2024 1:15 PM EDT Respiratory Rate 18 05/13/2024 1:15 PM EDT Oxygen Saturation 97% 05/31/2025 9:24 AM EDT Inhaled Oxygen Concentration - - Weight 92.7 kg (204 lb 6.4 oz) 05/31/2025 9:24 A M EDT Height 172.7 cm (5' 7.99 ) 05/31/2025 9:24 AM ED T Body Mass Index 31.09 05/31/2025 9:24 AM EDT Plan of Treatment Upcoming Encounters Date Type Department Care Team (Latest Contact Info) Description 06/08/2025 10:00 AM EDT Office Visit [facility] [address] [place] [address] Sheila Stafford MD [address] [place] [address], [address] [place] [address] 07/20/2025 Procedure Pass [facility] Admitting Dept Virtual Department [address] [place] [address] 07/20/2025 1:00 PM EST Hospital Encounter [facility] Admitting Dept Virtual Department [address] [place] [address] Blanco Peña MD [address] [address] 07/20/2025 1:00 PM EST - 07/20/2025 1:30 PM EST Surgery [facility] Endoscopy Admitting Dept Virtual Department [address] [place] [address] Blanco Peña MD [address] [address] COLONOSCOPY 11/29/2025 10:20 AM EDT Office Visit [facility] [address] [place] [address] 3rd Floor, [address] [place] [address] Danish Grace MD 22 [facility], [address] [place] [address] Scheduled Procedures Name Priority Associated Diagnoses Date/Ti me COLONOSCOPY Family history of colon cancer Hx of colonic polyps 07/20/2025 1:00 PM EST Health Maintenance Due Date Last Done Comments COLOGUARD 11/17/1992 FIT TEST 11/17/1992 FOBT 11/17/1992 SIGMOIDOSCOPY 11/17/1992 VIRTUAL COLONOSCOPY 11/17/1992 HEMOGLOBIN A1C 11/10/2024 05/13/2024, 07/11/2023, 03/17/2023, Additional history exists URINE MICROALBUMIN/CREATININE RATIO 03/23/2025 03/23/2024, 12/22/2022, 12/22/2022, Additional history exists INFLUENZA VACCINE (#1) 2025 , 06/30/2024, 06/23/2023, Additional history exists COVID-19 VACCINE ( season) 2025 05/20/2024, 06/23/2023, 07/03/2022, Additional history exists DEPRESSION SCREENING 05/09/2025 05/09/2024 CREATININE LEVEL 05/13/2025 05/13/2024, , 12/22/2022, Additional history exists BLOOD PRESSURE 11/29/2025 05/31/2025 DIABETIC EYE EXAM 03/15/2026 03/15/2025, , 08/20/2023, Additional history exists COLONOSCOPY 03/11/2027 03/11/2022, 02/2019, 06/08/2015 COLORECTAL CANCER SCREENING 03/11/2027 Adult Td,Tdap Booster 06/21/2031 06/21/2021 HEPATITIS C SCREENING Completed 05/23/2021, 021 ZOSTER VACCINES Completed 10/07/2021, 02/2021, 08/10/2015 PNEUMOCOCCAL VACCINES (50+ years) Completed 06/07/2022, 06/21/2021, 08/10/2015 RSV VACCINE Completed 11/09/2024 SMOKING STATUS SCREENING (Once After 26 Yrs) Completed 05/31/2025 HEPATITIS A VACCINES Aged Out No long [...] this topic Medical Devices Implanted Type Area Telephone Appointment Clerk Device Identifier Shelf Expiration Date Model / Serial / Lot Pacemaker Pacemaker Chest Wire Wire Sternum Description:cabg Clip Hemostasis 360deg 235cm Resolution 360 Latex Free 2.8mm Channel Bx/20ea - [id number] Implanted:Qty: 1 on 03/11/2022 by Blanco Peña MD at [facility] [employer] [facility] [id number] / / Description:Ileal cecal poly pectomy site Procedures Procedure Name Priority Date/Time Associated Diagnosis Comments DEVICE CHECK: PPM IN-PERSON PROGRAMMING DUAL LEAD Routine 05/31/2025 12:37 PM EDT Sick sinus syndrome TTE COMPREHENSIVE Routine 05/22/2025 11: 16 AM EDT Cardiomyopathy, unspecified type Aortic valve stenosis with insufficiency, etiology of cardiac valve disease unspecified OUTSIDE US IMAGING REPORT ONLY Routine 05/08/2025 2:44 PM EDT DIABETES EYE EXAM FOR RESULT ENTRY ONLY Routine 03/15/2025 5:16 PM EDT HEMOGLOBIN A1C Routine 05/13/2024 2:07 PM EDT 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, without long-term current use of insulin BASIC METABOLIC PANEL Routine 05/13/2024 2:07 PM EDT Medicare annual wellness visit, subsequent MICROALBUMIN/CREATININ E RATIO, RANDOM URINE Routine 03/23/2024 10:09 AM EDT 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, without long-term current use of insulin ENDOSCOPY, COLON 03/11/2022 8:45 AM EDT HEPATITIS C ANTIBODY, QUALITATIVE Routine 05/23/2021 11:16 AM EDT Need for hepatitis C screening test from Last 3 Months or Most Recently Relevant to Health Maintenance Results * DEVICE CHECK: PPM IN-PERSON PROGRAMMING [...] for device: SSS Examination: Device type: Pacemaker Telephone Appointment Clerk: [employer] Mode: DDDR-ADIR LRL/URL: 60/130 bpm Thresholds, [...] in: 6 months Report prepared by Elana aCrd RN us Danish Grace MD [facility] ORDERABLE S Final Result * TTE COMPREHENSIVE (05/22/2025 11:16 AM EDT) Height 173 cm Weight 92 kg Interventricular Septum Thickness 10 6 - 11 mm Left Ventricle Internal Diameter End Diastole 59 42 - 58 mm Left Ventricle Internal Diameter End Systole 39 <40 mm Left Ventricular Outflow Tract Diameter 21.0 mm Left Ventricular Posterior Wall Thickness 11 6 - 11 mm Left Ventricle Ea Lateral Wave Speed 7.7 cm/s Left Ventricle Ea Septal Wave Speed 4.3 cm/s Ejection Fraction 71 50 - 75 Percent Left Atrium Dimension Anterior-Posterior 53 15 - 40 mm Aortic Valve Regurgitation Pressure Half Time 490 ms Aortic Valve Peak Velocity 1.6 m/s Aortic Valve Peak Gradient 11 mmHg Aortic Valve Mean Gradient 5 mmHg Aortic Valve Time Velocity Integral 357.0 mm Aortic Arch Diameter 28 mm Aortic Sinus Diameter 34 <40 mm Ascending Aorta Diameter 41 <36 mm Inferior Vena Cava Diameter 16 <21 mm Mitral Valve Deceleration Time 254 ms Left Ventricle A Wave Speed 47.0 cm/s Left Ventricle E Wave Speed 48.0 cm/s Pulmonary Valve Peak Velocity 0.9 m/s Pulmonary Valve Peak Gradient 3 mmHg Right Ventricle Basal Diameter 42 25 - 41 mm Tricuspid Valve Peak Velocity 2.5 m/s Raw LV EF% 56 % MV E/E' Tissue Velocity Lateral 6.23 Relative Wall Thickness 0.37 0.22 - 0.42 MV E/A ratio 1.0 MV E/e' septal 11.16 Left Ventricle E/e' Average 8.7 Aortic Valve Prosthetic Peak Gradient 11 mmHg Aorta Sinus Index by Height 1.97 cm/m Aorta Sinus CSA index by Height 5.25 cm2/m Asc Aorta CSA Index by Height 7.63 cm2/m Right Ventricle to Right Atrium Pressure Gradient 25 mmHg Right Ventricle Peak Systolic Pressure (Assuming RAP 10) 35 mmHg MGB CV ECHO TV RVSP (ASSUMING RAP OF 5) 30 mmHg RVSP (Exclusive of RAP) 25 mmHg Pulmonic Valve Prosthetic Peak Gradient 3 mmHg Echo E/Ea 11.16 Body Surface Area 2.05 m2 Left Ventricle indexed to BSA 124.7 g/m2 Left Ventricular Outflow Tract Velocity 1.0 m/s Aortic Valve Prosthetic Mean Gradient 5 mmHg LVOT VTI REST 20.0 cm Aortic Valve Sinus Index by BSA 17 mm/m2 Ascending Aorta Index 20 mm/m2 MGB CV AV DIMENSIONLESS INDEX (PEAK) - STRESS ECHO DOBUT - REST 0.63 Ascending Aorta Index 20 mm Aortic Sinus Index 17 mm Ascending Aorta Diameter 20 mm Aortic Valve Sinus Index 1 17 20 - 32 mm AO ASC DIAM BSA INDEX 20.00 Right Atrium Area 22 cm2 Right Atrium Area index 11 cm2/m2 Anatomical Region Laterality Modality Heart Ultrasound Narrative 05/22/2025 11:31 AM EDT Images from the original result were not included. 1. The indication is aortic regurgitation assessment. The estimated ejection fraction left ventricle is 50 to 55%. Diastolic function is normal left ventricular thickness is normal regional wall motion is all normal. 2. Mild dilatation to the RV cavity with normal RV function. 3. Trileaflet aortic valve the mean gradient across the valve is only 5 mmHg there is mild aortic regurgitation. The ascending aortic root is 41 mm. This may be slightly less than the degree of aortic regurgitation on the prior study. 4. Mild mitral and trace tricuspid insufficiency, the PA pressure is normal. 5. Normal pericardium when compared to the prior echo done March 10, 2022, the degree of aortic regurgitation is either the same or slightly less. Left Ventricle The left ventricle is normal in size. There is normal wall thickness. Left ventricular systolic function is at the lower limits of normal. The LV ejection fraction is 50-55% (visually estimated). LV diastolic function appears within normal limits for age. Right Ventricle The right ventricle is mildly dilated. There is normal right ventricular systolic function. Left Atrium The left atrium is normal in size. Right Atrium The right atrium is mildly dilated. The IVC is normal in size with normal inspiratory collapse. Mitral Valve The mitral valve appears normal. There is mitral annular calcification. There is no mitral stenosis. There is mild mitral regurgitation. Tricuspid Valve The tricuspid valve appears normal. There is no tricuspid stenosis. There is trace tricuspid regurgitation. Aortic Valve The aortic valve is tricuspid. There is no aortic stenosis. The aortic valve peak velocity is 1.6 m/s. The peak and mean aortic valve gradients are 11 mmHg and 5 mmHg respectively. There is mild aortic regurgitation. The aortic sinuses are normal in size. The ascending aorta is dilated. Pulmonic Valve The pulmonic valve appears normal. There is no pulmonic stenosis. There is trace pulmonic regurgitation. Pericardium There is no pericardial effusion. General Findings The image quality was fair (3). Technique(s) used in the evaluation: Multiplane, Color flow Doppler, Spectral Doppler and Epiaortic scan. Comparison Findings Compared to prior TTE report on 03/10/2022, IAS/IVS The interatrial septum appears normal. There is no evidence of patent foramen ovale (PFO) by Doppler. The interventricular septum appears normal. Claribel Gagnoncherelle Kendall [facility] CV ECHO ORDERABLES Final Result * Outside US Imaging??Report Only (05/08/2025 2:44 PM EDT) Unknown Unknown MD IMG US OP Edited Result - Final * DIABETES EYE EXAM FOR RESULT ENTRY ONLY (03/15/2025 5:16 PM EDT) Historical Provider HEALTH MAINTENANCE Edited Result - Final * (ABNORMAL) Hemoglobin A1c (05/13/2024 2:07 PM EDT) HEMOGLOBIN A1C 6.4(H) 4.3 - 5.8 % [facility] Blood 05/13/2024 2:07 PM EDT 05/13/2024 2:14 PM EDT Sheila Stafford MD LAB BLOOD ORDERABLES Final Resu lt [facility] [address] [place] [address] * (ABNORMAL) Basic metabolic panel (05/13/2024 2:07 PM EDT) SODIUM 141 133 - 146 mmol/L [facility] CHLORIDE 103 96 - 108 mmol/L [facility] POTASSIUM 4.9 3.3 - 5.1 mmol/L [facility] CO2 27 21 - 35 mmol/L [facility] BUN 26(H) 6 - 19 mg/dL [facility] CREATININE 1.20 0.5 - 1.5 mg/dL [facility] GLUCOSE 134(H) 70 - 99 mg/dL [facility] CALCIUM 9.3 8.4 - 10.3 mg/dL [facility] EGFR 63 >59 mL/min/1.7 3m2 [facility] Comment:Estimated glomerular filtration rate calculated using the CKD-EPI refit equation. ANION GAP 16 10 - 20 mmol/L [facility] Blood 05/13/2024 2:07 PM EDT 05/13/2024 2:14 PM EDT us Sheila Stafford MD LAB BLOOD ORDERABLES Final Resu lt Performing Organization Address City/[facility] Co de Phone Number [address] [address] * Microalbumin/creatinine ratio, random urine (03/23/2024 10:09 AM EDT) URINE MICROALBUMIN 1.3 0 - 2.3 mg/dL [facility] URINE CREATININE 123 mg/dL [facility] MICROALB/CRE RATIO 10.6 0 - 20 mg/g Cre [facility] Urine (Urine) 03/23/2024 10: 09 AM EDT 03/23/2024 10:11 AM EDT us Sheila Stafford MD URINE ORDERABLES Final Result Performing Organization Address [facility] Co de Phone Number [address] [address] * ENDOSCOPY, COLON (03/11/2022 8:45 AM EDT) Narrative Transcriptions Blanco Peña MD - 03/11/2022 8:45 AM EDT Patient Name: Jorden Alexia Attending MD:: BLANCO PEÑA MD Procedure Date: 03/11/2022 8:45 AM Date of : 1945 Age: 76 Admit Type: Outpatient Gender: Male Room: [place] [address] Referring MD: SHEILA STAFFORD Exam Type: Colonoscopy [...] monitored continuously. The Olympus adult variable colonoscope [id number] #2 was introduced through the anus and [...] 8:45 AM Procedure Code(s): --- Professional --- 61271, Colonoscopy, flexible; with removal of tumor(s), polyp(s), or other lesion(s) by snare technique --- Technical --- 77785, Colonoscopy, flexible; with removal of tumor(s), polyp(s), [...] or abscess without bleeding CPT copyright 2020 [employer]. All rights reserved. The codes documented in this report are preliminary and upon plate painter reviewmay be revised to meet current compliance requirements. Procedure Date: 03/11/2022 8:45:16 AM [address] [place] [address] us Sheila Stafford MD GI PROCEDURE ORDERABLES Final R esult * Hepatitis C antibody, qualitative (05/23/2021 11:16 AM EDT) HCV NON-REACTIV E NON-REACTI VE [facility] Blood 05/23/2021 11:1 6 AM EDT 05/23/2021 11:19 AM EDT us Jose Fowler MD LAB BLOOD ORDERABLES Final Result [facility] [address] [place] [address] from Last 3 Months or Most Recently Relevant to Health Maintenance Insurance MEDICARE PART A & B [facility] MEDICARE SUPPLEMENT MEDICARE PART A & B [facility] MEDICARE SUPPLEMENT MEDICARE PART A & B [facility] MEDICARE SUPPLEMENT MEDICARE PART A & B [email or web address] [employer] MEDICARE SUPPLEMENT MEDICARE PART A & B [facility] MEDICARE SUPPLEMENT MEDICARE PART A & B [facility] [place] [id number] MEDICARE PART A & B [facility] MEDICARE SUPPLEMENT MEDICARE PART A & B [employer] MEDICARE SUPPLEMENT MEDICARE PART A & B [employer] MEDICARE SUPPLEMENT Care Teams Coding Consultant Relationship Specialty Start Date End Date Sheila Stafford MD [address] [facility], [address] [place] [address] [email or web address] PCP - General Internal Medicine 05/21/21 Sheila Stafford MD [address] [facility], [address] [place] [address] Insurance Assigned Provider 12/05/23 Additional Source Comments The information contained in this document represents components of the legal health record. It is not the complete legal health record.[facility]
--- OUTSIDE RECORDS SUMMARY | 2025-06-01 14:21 | XMS_ITS | Clinical Summary ---
Author Organization [facility], Address [address] [facility] [address] [place] [address] Phone Care Team Providers Care Manager Clinical Informatics Name Role Phone Susanna Solo DO Primary [...] age to complete this topic Insurance Medicare [facility] Care Teams Manager Clinical Informatics Relationship Specialty Start Date End Date Susanna Solo DO PCP - General Silviculture Forester 09/07/19
--- OUTSIDE RECORDS SUMMARY | 2025-06-01 14:21 | XMS_ITS | Encounter Summary ---
Author Organization [facility] Address [address] [facility] [address] [place] [address] Phone Care Team Providers Care Solidworks Mechanical Designer Name Role Phone Abraham Stafford MD Primary Care Provider [phone] Abraham Stafford MD Unavailable [phone] Encounter Details Date Type Department Care Team (Late st Contact Info) Description 03/11/2022 Procedure Pass [facility] Endoscopy Admitting Dept Virtual Department [address] [place] [address] Social History Tobacco Use Types Packs/Day Years [...] Office Visit [facility] [address] [place] [address] Abraham Stafford MD [address] [facility], [address] [place] [address] 07/20/2025 Procedure Pass [facility] Endoscopy Admitting Dept Virtual Department [address] [place] [address] 07/20/2025 1:00 PM EST Hospital Encounter [facility] Admitting Dept Virtual Department [address] [place] [address] Drew Varela MD [address] [address] 07/20/2025 1:00 PM EST - 07/20/2025 1:30 PM EST Surgery [facility] Endoscopy Admitting Dept Virtual Department [address] [place] [address] Drew Varela MD [address] [address] COLONOSCOPY 11/29/2025 10:20 AM EDT Office Visit [facility] [address] [place] [address] [address]rd Floor, [address] [place] [address] Danish Grace MD [address] [place] [address], [address] [address] [email or web address] Scheduled Procedures Name Priority Associated Diagnoses Date/Ti me COLONOSCOPY Family history of colon cancer Hx of colonic polyps 07/20/2025 1:00 PM EST documented as of this encounter Visit Diagnoses Not on filedocumented in this encounter Additional Health Concerns Assessment Noted Time PHQ-2 Depression Total Score: 0 06/20/20 3:03 PM EDT documented as of this encounter Care Teams Solidworks Mechanical Designer Relationship Specialty Start Date End Date Abrhaam Stafford MD [address] [place] [address], [address] [place] [address] PCP - General Internal Medicine 05/21/21 Abraham Stafford MD [address] [place] [address], [address] [place] [address] [email or web address] Insurance Assigned Provider 12/05/23 documented as of this encounter Additional Source Comments The information contained in this document represents components of the legal health record. It is not the complete legal health record.[facility]
== END 2025-06-01 15:14 | disposition home or self-care (01) ==
LOC: HO.HVS 12:55
PROVIDERS: PCP Internal Medicine; Visit Provider Surgery Vascular Surgery
DX: I73.9 Peripheral vascular disease, unspecified (principal)
CPT/HCPCS: 99214; G2211

== ENCOUNTER → 2025-06-01 12:54 | Outpatient (BNVA) | payer MEDICARE, OTHER, SELFPAY | PROVIDERS: PCP Internal Medicine; Visit Provider Surgery Vascular Surgery | DX: I73.9 Peripheral vascular disease, unspecified (principal) | CPT/HCPCS: 99212 ==